=== PATIENT | male | born 1940 | race Caucasian/White ===

== ENCOUNTER → 2018-06-14 12:34 | Outpatient (CLI) | payer MEDICARE, SELFPAY ==
[2018-03-27 13:32] VITALS: BMI 39.6
--- NOTE | 2018-06-14 12:38 | AVDS_ITS ---
Reason For Study: Assessment of AV fistula graft LEFT [place] artery - 168.0 cm/s Volume flow - 162 cc/min Anastomosis - 211.0 cm/s Prox graft - 297.0 cm/s Volume flow - 230 cc/min Mid graft - 212.0 cm/s Volume flow - 256 cc/min Dist graft - 205.0 cm/s Volume - 10.5 cc/min Anastomosis - 208.0 cm/s. Interpretation Summary By report: patient with left upper extremity loop PTFE hemodialysis graft. Very poor flow volume throughout the left brachial artery and graft Mid graft dilatation to 0.88cm Stable velocities at the venous anastomosis with increased flow disturbance. Etiology to the low flow rates not identified. Ordering Physician: Teodoro Mckinley Referring Physician: Teodoro Mckinley Performed By: Ana Lilia Morrison RVT
== END ==
PROVIDERS: Family Provider Internal Medicine; PCP Internal Medicine; Referring Provider Internal Medicine; Visit Provider Internal Medicine
DX: Z01.818 Encounter for other preprocedural examination (principal); N18.6 End stage renal disease; Z99.2 Dependence on renal dialysis; I77.0 Arteriovenous fistula, acquired
CPT/HCPCS: 93990

== ENCOUNTER 2020-02-18 15:21 | Inpatient (IN) | payer MEDICARE, SELFPAY ==
[2020-01-14 14:26] VITALS: BMI 39.0
[2020-02-18 15:23] VITALS: BP 152/73; PULSE 60; RESP 18; TEMP 35.9; O2SAT 97; BMI 38.0
--- NOTE | 2020-02-18 15:33 | EKG12_ITS ---
Test Reason : SOB,CP Blood Pressure : / mmHG Vent. Rate : 065 BPM Atrial Rate : 065 BPM P-R Int : 238 ms QRS Dur : 116 ms QT Int : 404 ms P-R-T Axes : -09 027 035 degrees QTc Int : 420 ms Poor data quality, interpretation may be adversely affected AV dual-paced rhythm with prolonged AV conduction Abnormal ECG Confirmed by FLAVIO LOUISE, MARCI ([id number]), art editor KRISTEN MEDINA ([id number]) on 02/20/2020 9:33:16 AM Referred By: ED PHYS Confirmed By:MARCI MUNIZ MD
[2020-02-18] MEDS: Aspirin 81 MG TAB.CHEW 324 MG PO (17:09)
--- NOTE | 2020-02-18 17:15 | RAD_ITS ---
STUDY: X-RAY CHEST REASON FOR EXAM: Male, 79 years old. SOB WITH EXERTION, CP, COUGH AND CONGESTION TECHNIQUE: Single AP portable view of the chest. COMPARISON: 09/25/2016 FINDINGS: Interval placement of a right subclavian dual-lead pacemaker. No pneumothorax. The lungs are clear and expanded. There is no demonstrated pleural abnormality. There is moderate cardiac enlargement. Normal mediastinum and ilia. Normal visualized pulmonary arteries. Normal visualized aortic arch and descending thoracic aorta. Normal visualized thoracic spine. Normal visualized ribs, clavicles, and shoulders. There is no demonstrated abnormality of the visualized soft tissue structures of the upper abdomen. RAD/Chest 1 View (Portable) IMPRESSION: No active disease. Electronically Signed: Yo Sanchez MD at 17:30 EDT Tel , Service support ,
[2020-02-18 17:27] VITALS: O2SAT 97
[2020-02-18 17:33] LABS: Absolute Lymphocyte Count 0.97 X10^3/uL (0.83-4.51); Absolute Neutrophil Count 3.7 X10^3/uL (2.0-7.7); Basophil# 0.04 X10^3/uL; Basophil% 0.7 % (0-1); Eosinophil# 0.26 X10^3/uL; Eosinophils% 4.7 % (0-5); Hemoglobin 9.8 g/dL (13.0-16.5); Lymphocyte # 0.97 X10^3/ul (4.0); Lymphocyte % 17.5 % (19-41); Mean Corp Hgb Conc 30.6 g/dL (32-36); Mean Corpuscular Hgb 31.7 pg (27.0-32.0); Mean Corpuscular Volume 103.6 fL (80-94); Mean Platelet Vol. 10.1 fl (6.2-12.0); Monocyte# 0.58 X10^3/uL; Monocyte% 10.5 % (0-10); NRBC Flagged by Analyzer 0 % (0-5); Neutrophil # 3.66 X10^3/uL (2.7-7.7); Neutrophil % 66.2 % (47-70); Platelet Count 149 K/mm3 (150-450); RBC Distribution Width CV 16.7 % (11.6-14.6); RBC Distribution Width SD 63.4 fl (35.1-43.9); Red Blood Count 3.09 M/mm3 (4.6-6.2); White Blood Count 5.5 K/mm3 (4.4-11.0)
[2020-02-18 18:07] LABS: Anion Gap 6 (5-15); BUN 48 mg/dL (7-18); BUN/Creat Ratio 5.8 RATIO (10-20); Calcium,Total 9.2 mg/dL (8.5-10.1); Chloride 106 mmol/L (98-107); Creatinine, Serum 8.23 mg/dL (0.70-1.30); EST Glomerular Filtration Rate 7 mL/min (>60); Est Glom Filt Rate - Afr Amer 8 mL/min (>60); Estimated Creatinine Clearance 7.16 ml/min; Glucose 114 mg/dL (74-106); Potassium 4.9 mmol/L (3.5-5.1); Sodium Level 139 mmol/L (136-145)
--- NOTE | 2020-02-18 18:13 | ED.DCSUM_ITS ---
- ER Visit Summary Date of Service: 02/18/20 Chief Complaint: Chest pain and shortness of breath History of Present Illness: The patient is a [address] Mckinley and Dr. Tapia. He reports that he has chest pain shortness of breath that began 2 weeks ago. States that the chest pain is brought on by exertion. He uses walking down the garcia as an example of this. With this he gets severely short of breath. States it resolves with approximately 10 to 15 minutes of rest. He denies any chest pain at this time. He denies any radiation of the pain. He denies any diaphoresis, nausea, or vomiting with this. Of note the patient has a history of hypertension was on midodrine until 2 weeks ago. This was stopped because his blood pressure has been increasing. His reports his systolic blood pressure is been approximately 150 since. Physical Examination: Vitals: Stable. Afebrile. General: Well-nourished and well-developed. Head: Normocephalic atraumatic. Neck: Supple, no lymphadenopathy. No JVD. Nontender. Cardiovascular: Regular rate and rhythm. 2 out of 6 systolic murmur. Respiratory: No respiratory distress. Clear to auscultation bilaterally. Abdominal: Soft, nontender, nondistended, normal bowel sounds. No guarding, rebound, or peritoneal signs. Back: Nontender. Extremities: Nontender, 2+ edema of his lower extremities bilaterally. Skin: Normal color, no rash. Neurologic: Alert and oriented ?3. Cranial nerves II through XII are intact. Normal strength and sensation. Psych: Normal affect. Test Results: EKG is AV paced at [address] changes. Troponin 0 0.031. Chem-7 shows a BUN of 48, creatinine 8.23, glucose 114. CBC shows an H&H of 940 and 32.0, platelets 149, lymphocytes of 18, monocytes of 11. Emergency Department Course and Treatment: Patient was given aspirin here. He is resting comfortably and is pain-free. Treatment Plan: Patient was discussed with Dr. Tapia and Dr. Pearson. He will be admitted to the hospital for further evaluation and treatment. Dr. Tapia asked that I not anticoagulate him at this time. Disposition: Admitted in stable condition. Impression: 1. Unstable angina. 2. End-stage renal disease. 3. Anemia. 4. Thrombocytopenia. 5. ALLYSON score of 4. This note was generated with [employer] dictation software. It may contain incorrect words, spelling, and punctuation that were not noted in review of the chart prior to signing ED Disposition - Plan for ED Patient: Disposition: Acute Care Hospital [facility]
--- NOTE | 2020-02-18 18:35 | CON.PCM_ITS ---
Reason for Consult Date of Consultation: 02/18/20 Reason for Consultation: Chest discomfort History of Present Illness: The patient is a 79 year old M with no previously documented coronary artery disease but a history of end-stage renal disease on dialysis. He also is status post permanent pacemaker implantation. He presented to the emergency room today complaining of chest discomfort described as heaviness in his chest with exertion. It tends to go away with rest. He apparently a few days ago had a similar discomfort presented to [facility] and was evaluated and discharged. He did not have any stress test performed. He has not had a stress test in a long time. He denies any shortness of breath he has been participating in his dialysis. He has had no dizziness or diaphoresis no near syncope or syncope. He has however had some fluctuations in his blood pressure previously. In the emergency room he was noted to have abnormal EKG with mildly abnormal cardiac enzymes cardiology was called for further evaluation and management. [] Past Medical History Allergies/Adverse Reactions: Allergies Penicillins [PCN] Allergy (Verified 02/18/20 15:26) Unknown STATES FATHER WAS NEVER HAS BEEN GIVEN MEDICATION atorvastatin calcium [From Lipitor] Adverse Reaction (Verified 02/18/20 15:26) Other METAL Allergy (Uncoded 02/18/20 15:26) Rash Home Medications: Ambulatory Orders Medication Instructions Recorded Insulin Lispro [Humalog] 6 - 8 unit SQ TID PRN 07/23/15 Pravastatin [Pravachol] 80 mg PO DAILY 07/23/15 Tamsulosin HCl [Flomax] 0.4 mg PO QHS 07/23/15 Aspirin E.C. [Ecotrin] 81 mg PO DAILY@0800 09/25/16 B complex with C 20-folic acid 1 1 cap PO DAILY 06/16/18 mg capsule insulin detemir U-100 100 unit/mL 14 unit SC QHS ml 06/16/18 (3 mL) subcutaneous pen clopidogrel 75 mg tablet 75 mg PO DAILY 09/29/18 Acetaminophen [Tylenol Extra 500 mg PO DAILY PRN PRN 02/18/20 Strength] Calcium Acetate 1,334 mg PO BREAKFAST 02/18/20 Calcium Acetate 667 mg PO BIDCM 02/18/20 Latanoprost/Pf [Latanoprost 0.005% 1 drp EACH EYE QHS 02/18/20 Eye Drop] Levothyroxine Sodium [Synthroid] 175 mcg PO DAILY 10/05/20 Past Medical History (Chronic Problems): Chronic Problems (Last Reviewed 01/14/20 @ 14:48 by Ilda JERRY, PA) Presence of permanent cardiac pacemaker (Chronic 09/27/16) Dual Chamber Pacemaker Implant: 09/27/2016 Essential hypertension (Chronic) Atrioventricular block, second degree (Chronic) Bradycardia, unspecified (Chronic) 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) HLD (hyperlipidemia) (Chronic) Chronic renal failure (Chronic) Surgical History: - - *Family History Maternal Family History: Family History (Last Reviewed 01/14/20 @ 14:48 by Ilda JERRY, PA) Father valve replacement Cancer Uncle CAD (coronary artery disease) History Items: - - kidney disease, small shriveled kidneys Paternal Family History: Family History (Last Reviewed 01/14/20 @ 14:48 by Ilda JERRY, PA) Father valve replacement Cancer Uncle CAD (coronary artery disease) History Items: - - diabetes Smoking Status: Never smoker Review of Systems - Review of Systems General: Denies: Fever, Night Sweats, Fatigue HEENT: Denies: Vision Change Cardiovascular: Reports: Chest Discomfort, Chest Discomfort with Exertion, Chest Pressure. Denies: Shortness of Breath, Orthopnea, PND, Peripheral Edema, Palpitations, Lightheadedness, Dizziness, Near Syncope, Syncope Respiratory: Denies: Cough, Sputum Production, Hemoptysis Gastrointestinal: Denies: Hematemesis, Hematochezia, Melena Genitourinary: Denies: Dysuria, Hematuria Skin: Denies: Rash Neurological: Denies: Dizziness Psychiatric: Denies: Anxiety Endocrine: Denies: Unexplained Weight Loss Subjectve: Pleasant gentleman in no distress Objective: Vital Signs Temp Pulse Resp BP Pulse Ox 96.7 F L 60 18 152/73 H 97 02/18/20 15:23 02/18/20 15:23 02/18/20 15:23 02/18/20 15:23 02/18/20 15:23 Oxygen Delivery Method Room Air Weight: 250 lb Body Mass Index (BMI) 38.0 Finger Stick Blood Glucose 124 General: Awake, Alert, Oriented x 3 HEENT: PERRL, EOMI, Sclera Non Icteric Neck: Supple, Good ROM, No Lymph Node Enlargement Lungs: Clear to auscultation Cardiovascular: Regular Rhythm, Normal S1, Normal S2, No Murmurs, No Rubs, No Gallops Vascular: No Carotid Bruits, Normal Femoral Pulses, Normal Radial Pulses, Normal Dorsalis Pedal Pulse, Normal Posterior Tibial Pulses Abdomen: Bowel Sounds Present, Soft, Non Tender, No HSM, No Organomegaly Extremities: No Cyanosis, No Clubbing, Trace RLE Edema Musculoskeletal: No Erythema Skin: No Rashes Lymphatic: No Lymph Node Enlargement Neurological: No Focal Motor or Sensory Deficit 02/18/20 17:08: WBC 5.5, RBC 3.09 L, Hgb 9.8 L, Hct 32.0 L, MCV 103.6 H, MCH 31.7, MCHC 30.6 L, Plt Count 149 L, MPV 10.1, Immature Gran % (Auto) 0.400, Neut % (Auto) 66.2, Lymph % (Auto) 17.5 L, [place] % (Auto) 10.5 H, Eos % (Auto) 4.7, Baso % (Auto) 0.7, Absolute Neuts (auto) 3.7, Nucleated RBC % 0 02/18/20 17:08: Sodium 139, Potassium 4.9, Chloride 106, Carbon Dioxide 27.0, Anion Gap 6, BUN 48 H, Creatinine 8.23 H*, Est GFR (MDRD) Af Amer 8 L, Est GFR (MDRD) Non-Af 7 L, BUN/Creatinine Ratio 5.8 L, Glucose 114 H, Calcium 9.2, Troponin I 0.031 Rhythm: EKG: Normal sinus rhythm with no acute changes ECHO: Stress Test: Cardiac Cath: PCI: CT Surgery: Holter monitor: EPS: PPM: CXR: Chest CT Scan: Assessment/Plan 1. Chest pain. * Patient describes chest discomfort which is suggestive of recent onset angina. He has not had any chest pain at rest however. He has mildly abnormal cardiac enzymes. He does have renal dysfunction and his blood pressure is mildly elevated. This could potentially be an etiology. However in light of the fact that it appears to be fairly classic I would recommend that we perform a left heart catheterization. The risk benefits alternatives have been discussed with him he understands and agrees to proceed. I would recommend that he have dialysis after the cardiac catheterization. This has been discussed with the hospitalist and the nurse practitioner and all are in agreement. * 2. Status post permanent pacemaker implantation * He does have a dual-chamber pacemaker placed. He appears to be doing well with regard to the above. It has been recently interrogated and no significant abnormalities noted. * 3. Hypertension * He has had fluctuations in his blood pressure. We will continue to follow the above and monitor him with respect to the medications and appropriate adjustments will be made. * * Thank you for allowing me to participate in the care of your patient. Please don't hesitate to call if any issues arise.
--- NOTE | 2020-02-18 18:36 | PCM.HP.STD ---
History of Present Illness Date of Admission: 02/18/20 Chief Complaint: chest pain The patient is a 79 year old M with pmhx of ESRD, pacemaker for hx of AV block, Afib, HTN, chronic anemia, hypothyroidism, HLD, DMt2 who presents to the ER with chest pain. The patient has had intermittent chest pain for about 3 weeks. He describes it as a dull midsternal pain with no radiation, with associated SOB that is better at rest. He went to the [place] ER 2 weeks ago, had a CT of the chest, was told it was negative, and was discharged home. He continued to have intermittent pain for 2 more weeks. The patient met with cardiology in the ER and was agreeable to a heart cath in the AM. He has had one prior heart cath in his life but it was many years ago and was negative at that time. He is currently chest pain free in the ER. 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) HLD (hyperlipidemia) (Chronic) Chronic renal failure (Chronic) Medical History: Medical History (Last Reviewed 01/14/20 @ 14:48 by Ilda JERRY, PA) Essential hypertension (Chronic) I10 Problem with dialysis access (Acute) T82.898A Atrioventricular block, second degree (Chronic) I44.1 Bradycardia, unspecified (Chronic) R00.1 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) E11.59 HLD (hyperlipidemia) (Chronic) E78.5 Chronic renal failure (Chronic) N18.9 Thyroid disease E07.9 Anemia D64.9 Atrial fibrillation I48.91 History of renal calculi Z87.442 Hypoglycemia E16.2 First degree atrioventricular block (Inactive) I44.0 Hyperkalemia (Inactive) E87.5 Allergies Penicillins [PCN] Allergy (Verified 02/18/20 15:26) Unknown STATES FATHER WAS NEVER HAS BEEN GIVEN MEDICATION atorvastatin calcium [From Lipitor] Adverse Reaction (Verified 02/18/20 15:26) Other METAL Allergy (Uncoded 02/18/20 15:26) Rash Home Medications: Ambulatory Orders Medication Instructions Recorded Insulin Lispro [Humalog] 6 - 8 unit SQ TID PRN 07/23/15 Pravastatin [Pravachol] 80 mg PO DAILY 07/23/15 Tamsulosin HCl [Flomax] 0.4 mg PO QHS 07/23/15 Aspirin E.C. [Ecotrin] 81 mg PO DAILY@0800 09/25/16 B complex with C 20-folic acid 1 1 cap PO DAILY 06/16/18 mg capsule insulin detemir U-100 100 unit/mL 14 unit SC QHS ml 06/16/18 (3 mL) subcutaneous pen clopidogrel 75 mg tablet 75 mg PO DAILY 09/29/18 Acetaminophen [Tylenol Extra 500 mg PO DAILY PRN PRN 02/18/20 Strength] Calcium Acetate 1,334 mg PO BREAKFAST 02/18/20 Calcium Acetate 667 mg PO BIDCM 02/18/20 Latanoprost/Pf [Latanoprost 0.005% 1 drp EACH EYE QHS 02/18/20 Eye Drop] Levothyroxine Sodium [Synthroid] 175 mcg PO DAILY 02/18/20 Surgical History: Surgical History (Last Reviewed 01/14/20 @ 14:48 by Ilda JERRY, PA) Presence of permanent cardiac pacemaker (Chronic) Onset Date: 09/27/16 Z95.0 Dual Chamber Pacemaker Implant: 09/27/2016 History of arthroplasty of right shoulder Z98.890 History of biopsy Z98.890 renal 05/14/2015 History of inguinal hernia repair Z98.890, Z87.19 History of tonsillectomy Z90.89 hx fistula placement in left arm Surgical History: pacemaker implantation Lives: Alone Smoking Status: Never smoker Tobacco Use: Non-smoker Alcohol: None Drugs: None - *Family History Maternal Family History: Family History (Last Reviewed 02/18/20 @ 18:50 by Osmel JERRY, PA) Father valve replacement Cancer Uncle CAD (coronary artery disease) History Items: - - kidney disease, small shriveled kidneys Paternal Family History: Family History (Last Reviewed 02/18/20 @ 18:50 by Osmel JERRY, PA) Father valve replacement Cancer Uncle CAD (coronary artery disease) History Items: - - diabetes Review of Systems Constitutional: Denies: Chills, Fever, Weight Change HEENT: Denies: Head Aches, Sinus Congestion, Sinus Drainage Cardiovascular: Reports: Chest Pain. Denies: Edema, Palpitations Respiratory: Reports: Shortness of Breath. Denies: Cough, Shortness of breath at rest, Sputum production Gastrointestinal: Denies: Abdominal Pain, Diarrhea, Nausea, Vomiting Genitourinary: Denies: Dysuria Musculoskeletal: Denies: Joint Pain, Joint Tenderness Skin: Denies: Rash, Wounds Neurological: Denies: Numbness, Tingling, Focal weakness Psychiatric: Denies: Anxiety, Depression, Homicidal Ideations, Suicidal Ideations Hematologic/ Lymphatic: Denies: Easy Bruising, Easy Bleeding VTE Information - Inpt Only VTE Present on Admission: No VTE Mechan Device Prophylaxis: None VTE Pharm Prophylaxis ordered?: Yes - Physical Exam Vitals/I&O's: Vital Signs Temp Pulse Resp BP Pulse Ox 96.7 F L 60 18 152/73 H 97 02/18/20 15:23 02/18/20 15:23 02/18/20 15:23 02/18/20 15:23 02/18/20 15:23 Oxygen Delivery Method Room Air Weight: 250 lb Body Mass Index (BMI) 38.0 Finger Stick Blood Glucose 124 General: Alert, Oriented x3, Cooperative HEENT: Atraumatic, PERRLA, EOMI, Normocephalic Neck: Supple, No JVD, Negative Carotid Bruits Lungs: Clear to auscultation, Normal air movement Cardiovascular: Regular rate, No murmurs Abdomen: Bowel Sounds Present, Soft, Non Tender, Obese Extremities: No edema, Capillary Refill Less than 3 Seconds Skin: No rashes, No breakdown Musculoskeletal: No Tenderness to Palpation of Joints or Extremities Neurological: Cranial nerves II-XII grossly intact Psych/Mental Status: Normal Affect, Appropriate, Alert and oriented to time, place, person, mood and affect Laboratory Results 02/18/20 17:08: WBC 5.5, RBC 3.09 L, Hgb 9.8 L, Hct 32.0 L, MCV 103.6 H, MCH 31.7, MCHC 30.6 L, RDW Std Deviation 63.4 H, RDW Coeff of Renan 16.7 H, Plt Count 149 L, MPV 10.1, Immature Gran % (Auto) 0.400, Neut % (Auto) 66.2, Lymph % (Auto) 17.5 L, [place] % (Auto) 10.5 H, Eos % (Auto) 4.7, Baso % (Auto) 0.7, Absolute Neuts (auto) 3.7, Absolute Lymphs (auto) 0.97, Nucleated RBC % 0 02/18/20 17:08: Sodium 139, Potassium 4.9, Chloride 106, Carbon Dioxide 27.0, Anion Gap 6, BUN 48 H, Creatinine 8.23 H*, Estim Creat Clear Calc 7.16, Est GFR (MDRD) Af Amer 8 L, Est GFR (MDRD) Non-Af 7 L, BUN/Creatinine Ratio 5.8 L, Glucose 114 H, Calcium 9.2, Troponin I 0.031 Assessment/Plan All Active Problems (Last Reviewed 01/14/20 @ 14:48 by Ilda JERRY, PA) Problem with dialysis access (Acute) Nephrolithiasis (Resolved) 1. Chest pain - cardiology consulted. Pt to go for heart catheterization in the AM. EKG SR with PACs, Trop negative, CXR negative. Cycle enzymes, repeat EKG in AM. Pt is already on plavix, unclear reasons, pt is unsure. continue aspirin, statin. Risk factors include HTN, HLD, T2 DM, obesity, family hx of heart dz. Platelets are borderline low. 2. ? hx pAfib - listed in EMR as in the patients hx. SR currently. Rate stable. Not on rate limiting medications. Not anticoagulated. 3. Hx AV block with pacemaker in place 4. ESRD - due for dialysis tomorrow. Consult [facility] 5. DMt2 with obesity - continue levemir, TID humalog, sliding scale insulin. Consult scoring machine operator 6. HTN - not on home antihypertensives 7. HLD - statin 8. Anemia of chronic dz (esrd) - trend This patient was seen by Osmel Torres PA-C under the supervision of Dr. Pearson.
[2020-02-18 19:15] VITALS: BMI 37.6
[2020-02-18 19:19] VITALS: BP 195/73; PULSE 57; RESP 20; TEMP 36.5; O2SAT 95
[2020-02-18 19:24] VITALS: BMI 37.6
[2020-02-18 19:44] VITALS: PULSE 70
--- NOTE | 2020-02-18 20:06 | EKG12_ITS ---
Test Reason : AM EKG Blood Pressure : / mmHG Vent. Rate : 073 BPM Atrial Rate : 062 BPM P-R Int : 000 ms QRS Dur : 114 ms QT Int : 412 ms P-R-T Axes : 000 033 252 degrees QTc Int : 453 ms AV dual-paced rhythm with frequent Premature ventricular complexes Abnormal ECG Confirmed by KALEB LOUISE, DAVID ([id number]), proposal editor KRISTEN MEDINA ([id number]) on 02/20/2020 10:23:05 AM Referred By: PHIL Confirmed By:DAVID MANUEL MD
[2020-02-18] MEDS: Heparin Injection (Vial) 5,000 UNIT/ML VIAL 5000 UNIT SC (21:09)
[2020-02-18] MEDS: Tamsulosin HCl 0.4 MG Capsule PO (21:09)
[2020-02-18 21:16] LABS: Bedside Glucose 162 mg/dL (70-110)
[2020-02-18] MEDS: Insulin Lispro 100 UNIT/ML INSULN.PEN SC (21:25)
[2020-02-18] MEDS: Pravastatin 80 MG Tablet PO (21:27)
[2020-02-18 23:09] VITALS: PULSE 74
[2020-02-19] VITALS (18 sets, daily range): BP systolic 114–176; BP diastolic 58–84; PULSE 52–74; RESP 14–18; TEMP 36.1–36.9; O2SAT 92–97
[2020-02-19] MEDS: Clopidogrel Bisulfate 75 MG Tablet PO (05:32)
[2020-02-19] MEDS: Levothyroxine 175 MCG Tablet PO (05:32)
[2020-02-19] MEDS: Aspirin E.C. 81 MG Tablet PO (05:32)
--- NOTE | 2020-02-19 05:55 | EKG12_ITS ---
Test Reason : CP ADMISSION Blood Pressure : / mmHG Vent. Rate : 061 BPM Atrial Rate : 061 BPM P-R Int : 238 ms QRS Dur : 114 ms QT Int : 412 ms P-R-T Axes : 008 029 032 degrees QTc Int : 414 ms AV dual-paced rhythm with prolonged AV conduction Abnormal ECG Confirmed by KALEB LOUISE, DAVID ([id number]), scientific editor KRISTEN MEDINA ([id number]) on 02/20/2020 10:23:17 AM Referred By: PHIL Confirmed By:DAVID MANUEL MD
[2020-02-19 06:02] LABS: Mucous, Urine 0 SEEN /hpf (<or=2+); Red Blood Cells-Urine 0 SEEN /hpf (0-5); Squamous Epithelial Cells - UA 0 SEEN /hpf (0-5)
[2020-02-19] MEDS: 0.9% Saline Lock 10 ML Syringe IV (06:07)
[2020-02-19 06:08] LABS: Color, Urine Yellow (Yellow); Glucose, Dipstick Normal (Normal); Ketone-Dipstick 5 mg/dl (Negative); Leukocyte Esterase-Dipstick 500 /ul (Negative); Nitrite-Dipstick Negative (Negative); Occult Blood-Urine 10 /ul (Negative); Protein-Dipstick 100 mg/dl (Negative); Urine Clarity Clear (Clear); Urine Urobilinogen 1 mg/dl (Normal)
[2020-02-19 06:11] LABS: Urine Bilirubin Dipstick 1 mg/dL (Negative)
[2020-02-19 06:23] LABS: Amorphous Sediment RARE; Bacteria RARE /hpf (None Seen)
[2020-02-19 06:25] LABS: White Blood Cells 25-50 SEEN /hpf (0-5)
[2020-02-19 06:40] LABS: Bedside Glucose 122 mg/dL (70-110)
--- NOTE | 2020-02-19 07:17 | NURSING ---
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
--- NOTE | 2020-02-19 08:27 | ECHOL_ITS ---
Reason For Study: CAD Procedure This was a limited 2D transthoracic echocardiogram. The study was technically limited. Performed STAT in Injection Maintenance Technician. Left Ventricle Normal LV size. Moderate concentric left ventricular hypertrophy. Left ventricular systolic function is normal. The estimated ejection fraction is 60 %. No regional wall motion abnormalities noted. Mitral Valve There is moderate mitral annular calcification. Tricuspid Valve Normal tricuspid valve. Aortic Valve Normal aortic valve. Great Vessels Normal aortic root. Pericardium/Pleural No pericardial effusion. MMode/2D Measurements & Calculations LVIDd: 5.1 cm IVSd: 0.76 cm LVIDs: 3.8 cm LVPWd: 1.2 cm FS: 26.9 % Interpretation Summary Normal LV size. Left ventricular systolic function is normal. The estimated ejection fraction is 60 %. Moderate concentric left ventricular hypertrophy. Ordering Physician: Jorge Tapia Referring Physician: Teodoro Mckinley M.D. Performed By: Francesca Kelley, JENNIFER, RVT
--- NOTE | 2020-02-19 08:41 | CL.D_ITS ---
Patient Name: MERLIN LANDERS Study Date: 02/19/2020 Performing: Jorge Tapia MD Ht: 68.11 inches 173 cm : 1940 Wt: 246.92 lbs 112 kg Age: 79 Gender: male BSA: 2.24 PROCEDURE(S) PERFORMED XV25-YXG/COR CLINICAL PROFILE AND INDICATIONS Indications: Worsening Angina Heart Failure: None Stress/Imaging Stress/Image Study Performed: No CAD Presentations: Unstable angina. CONCLUSIONS Severe coronary artery disease with calcification especially involving the circumflex arterial system involving the mid circumflex as well as the first obtuse marginal branch. Extensive snob-sd-yhqid c ollaterals noted filling almost the entire right coronary artery system. Moderate LAD disease noted. RECOMMENDATIONS Will consider high risk PCI versus coronary artery bypass surgery DESCRIPTION OF PROCEDURE The patient arrived to the procedure lab. The risks and benefits of the procedure as well as a full d escription of our services here and current unavailability of surgical backup were fully explained to the patient and/or their significant other prior to the catheterization. The Timeout was completed, verifying the correct patient and procedure. The patient's procedural site was prepped and draped in the usual fashion. Local anesthetic was given subcutaneously to right radial region with Lidocaine 2% . Using a modified Seldinger technique, arterial access was obtained via the right radial artery, a 6 Fr sheath was inserted. Left Coronary Artery selective angiography was performed in multiple views u sing a 5 Fr. 4.0 [place] catheter. CORONARY ANGIOGRAPHY DOMINANCE: Right Dominant LEFT HEART ASSESSMENT Left Ventricular Ejection Fraction: by Echo 55 % Normal LV wall motion LEFT MAIN: Mild calcification, Mild luminal irregularities LEFT ANTERIOR DESCENDING ARTERY: PROX LAD: Moderate calcification, Moderate luminal irregularities up to 50% MID LAD: Mild luminal irregularities less than 30% DISTAL LAD: Mild luminal irregularities CIRCUMFLEX ARTERY: PROX CIRC: 90 % Stenosis OM 1: Proximal - 90 % Stenosis RIGHT CORONARY ARTERY: OSTIAL RCA: is occluded COLLATERAL FLOW: Collateral flow from Left to Right COMPLICATIONS PROCEDURE MEDICATIONS Versed 1 mg IV Fentanyl 50 mcg IV Oxygen: 2 L/min via nasal cannula Heparin diluted in 23cc Heparinized saline. Patient given 10cc IA of this solution. 02/19/2020 08:04: 10 Verapamil 2.5mg, Ntg 100mcgs, 2000 units of Heparin diluted in 23cc Heparinized saline. Patient give n 10cc IA of this solution. 02/19/2020 08:04:10 SUMMARY OF HEMODYNAMIC DATA Time AIR REST ECG 07:54:17 AO 151/76 (107) SA 08:06:35 Signed By Jorge Tapia MD On 02/19/2020 08:40:51 Jorge Tapia MD
--- NOTE | 2020-02-19 08:47 | PN.CARD_ITS ---
Subjectve: Patient seen and evaluated. Appears to be doing well. Underwent cardiac catheterization today. Objective: Vital Signs Temp Pulse Resp BP Pulse Ox 97.8 F 68 17 145/61 H 97 02/19/20 06:15 02/19/20 08:00 02/19/20 06:15 02/19/20 06:15 02/19/20 06:15 Oxygen Delivery Method Room Air Weight: 247 lb 9.266 oz Body Mass Index (BMI) 37.6 Finger Stick Blood Glucose 124 Intake and Output for Last 24 Hours 02/17/20 02/18/20 02/19/20 23:59 23:59 23:59 Intake Total 320 / 320 60 / 60 Balance 320 / 320 60 / 60 General: Awake, Alert, Oriented x 3 HEENT: PERRL, EOMI, Sclera Non Icteric Neck: Supple, Good ROM, No Lymph Node Enlargement Lungs: Clear to auscultation Cardiovascular: Regular Rhythm, Normal S1, Normal S2, No Murmurs, No Rubs, No Gallops Vascular: No Carotid Bruits, Normal Femoral Pulses, Normal Radial Pulses, Normal Dorsalis Pedal Pulse, Normal Posterior Tibial Pulses Abdomen: Bowel Sounds Present, Soft, Non Tender, No HSM, No Organomegaly Extremities: No Cyanosis, No Clubbing, No edema Musculoskeletal: No Erythema Skin: No Rashes Neurological: No Focal Motor or Sensory Deficit 02/18/20 17:08: WBC 5.5, RBC 3.09 L, Hgb 9.8 L, Hct 32.0 L, MCV 103.6 H, MCH 31.7, MCHC 30.6 L, Plt Count 149 L, MPV 10.1, Immature Gran % (Auto) 0.400, Neut % (Auto) 66.2, Lymph % (Auto) 17.5 L, [place] % (Auto) 10.5 H, Eos % (Auto) 4.7, Baso % (Auto) 0.7, Absolute Neuts (auto) 3.7, Nucleated RBC % 0 02/18/20 17:08: Sodium 139, Potassium 4.9, Chloride 106, Carbon Dioxide 27.0, Anion Gap 6, BUN 48 H, Creatinine 8.23 H*, Est GFR (MDRD) Af Amer 8 L, Est GFR (MDRD) Non-Af 7 L, BUN/Creatinine Ratio 5.8 L, Glucose 114 H, Calcium 9.2, Troponin I 0.031 02/18/20 20:32: Troponin I 0.029 02/18/20 22:43: Troponin I 0.034 02/19/20 05:40: Urine Color Yellow, Urine Clarity Clear, Urine pH 5.0, Ur Specific [place] 1.010, Urine Protein 100 H, Urine Glucose (UA) Normal, Urine Ketones 5 H, Urine Occult Blood 10 H, Urine Nitrite Negative, Urine Bilirubin 1 H, Urine Urobilinogen 1 H, Ur Leukocyte Esterase 500 H, Urine RBC 0 SEEN, Urine WBC 25-50 SEEN Rhythm: EKG: ECHO: Stress Test: Cardiac Cath: PCI: CT Surgery: Holter monitor: EPS: PPM: CXR: Chest CT Scan: Medical Necessity - Tobacco Use Smoking Status: Never smoker Tobacco Use: Non-smoker Assessment/Plan 1. Chest pain. * Patient describes chest discomfort which is suggestive of recent onset angina. * Patient underwent cardiac catheterization today which demonstrated the following: Normal left main coronary artery. Left anterior descending artery with moderate disease. First diagonal vessel with high-grade ostial stenosis: Left circumflex artery nondominant with severe disease involving the mid segment as well as the first obtuse marginal branch and a calcified lesion. Totally occluded right coronary artery. Left to right collaterals. Preserved left ventricular systolic function. Based on the above angiographic findings the patient should be considered for high risk PCI or coronary artery bypass surgery. Would recommend transferring to a tertiary care facility after the patient has undergone dialysis today. The above was discussed with the patient as well as the bilingual administrative assistant. 2. Status post permanent pacemaker implantation * He does have a dual-chamber pacemaker placed. He appears to be doing well with regard to the above. It has been recently interrogated and no significant abnormalities noted. * 3. Hypertension * He has had fluctuations in his blood pressure. We will continue to follow the above and monitor him with respect to the medications and appropriate adjustments will be made. * * Thank you for allowing me to participate in the care of your patient. Please don't hesitate to call if any issues arise.
--- NOTE | 2020-02-19 08:52 | CASEMGMT ---
Addendum entered by Yadira Nation 02/19/20 09:43: [facility] is also in-network tertiary facility. Linnette VALENCIA CM Original Note: According to the [facility] website, the following are in-network tertiary facilities: [facility], [place], [facility], [facility], [facility], [facility], [facility], and . Linnette VALENCIA CM
[2020-02-19] MEDS: Calcium Acetate 667 MG Capsule 1334 MG PO (10:07)
[2020-02-19] MEDS: Nystatin Powder 15gm Bottle 1 APPLIC TOPICAL (10:10)
[2020-02-19] MEDS: Lidocaine/Prilocaine HCl 5 GM Tube 1 GM TOPICAL (10:57)
--- NOTE | 2020-02-19 11:27 | CON.PCM_ITS ---
Problem List (1) ESRD (end stage renal disease) on dialysis Status: Acute Consultation - Renal 02/19/20 PCP/ Referring MD: Requesting physician: [] Primary care physician: Dr. Teodoro Mckinley MD Reason for Consultation:: ESRD - History of Present Illness History of Present Illness: The patient is a 79 year old M admitted to hospital with complaints of chest pain. renal consulted for ESRD. ESRD on HD TTS schedule. last HD was tuesday. admitted with chest pain for 3 weeks now. 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 possible transfer to tertiary [facility] for CABG. currently denies any complaints. access is left arm AVF - Allergies Allergies: Allergies Penicillins [PCN] Allergy (Verified 02/18/20 19:17) Unknown STATES FATHER WAS, NEVER HAS BEEN GIVEN MEDICATION atorvastatin calcium [From Lipitor] Adverse Reaction (Verified 02/18/20 19:17) muscular aches METAL Allergy (Uncoded 02/18/20 15:26) Rash - Current Medications Current Medications: Current Medications Acetaminophen (Tylenol) 650 mg PO Q6H PRN PRN PRN Reason: Pain Score 1-10/Temp > 100.7 F Aspirin (Ecotrin) 81 mg PO DAILY@0800 [facility] Last Admin: 02/19/20 05:32 Dose: 81 mg Documented by: Calcium Acetate (Phoslo Gel Cap) 667 mg PO 1200,1700 [facility] Calcium Acetate (Phoslo Gel Cap) 1,334 mg PO BREAKFAST [facility] Last Admin: 02/19/20 10:07 Dose: 1,334 mg Documented by: Clopidogrel Bisulfate (Plavix) 75 mg PO DAILY [facility] Last Admin: 02/19/20 05:32 Dose: 75 mg Documented by: Heparin Sodium (Porcine) (Heparin Na) 5,000 unit SC Q12 [facility] Last Admin: 02/19/20 10:09 Dose: Not Given Documented by: Insulin Glargine (Lantus (Bkc)) 14 units SC QHS [facility] Last Admin: 02/18/20 21:11 Dose: 14 u Documented by: Insulin Human Lispro (Humalog Kwikpen (Bkc)) 0 unit SC ACHS [facility]; Protocol Last Admin: 02/18/20 22:16 Dose: Not Given Documented by: Levothyroxine Sodium (Synthroid) 175 mcg PO DAILY@0600 [facility] Last Admin: 02/19/20 05:32 Dose: 175 mcg Documented by: Lidocaine/Prilocaine (Emla Cream W/Tegaderm) 1 gm TOPICAL DAILY PRN PRN; Protocol PRN Reason: pre-dialysis Last Admin: 02/19/20 10:57 Dose: 1 applicatio Documented by: Morphine Sulfate () 2 mg IV Q3H PRN PRN PRN Reason: Pain Score 6-10/10 Nystatin (Mycostatin Powder) 1 applic TOPICAL BID KADIE; Protocol Last Admin: 02/19/20 10:10 Dose: 1 applicatio Documented by: Ondansetron HCl (Zofran) 4 mg IV Q8H PRN PRN PRN Reason: NAUSEA/VOMITING Pravastatin Sodium (Pravachol) 80 mg PO QHS [facility] Last Admin: 02/18/20 21:27 Dose: 80 mg Documented by: Sodium Chloride () 10 - 40 ml IV UD PRN PRN Reason: SALINE FLUSH Last Admin: 02/19/20 06:07 Dose: 10 ml Documented by: Tamsulosin HCl (Flomax) 0.4 mg PO QHS [facility] Last Admin: 02/18/20 21:09 Dose: 0.4 mg Documented by: - Past Medical History Past Medical History (Chronic Problems): Chronic Problems (Last Reviewed 01/14/20 @ 14:48 by Ilda JERRY, PA) Presence of permanent cardiac pacemaker (Chronic 09/27/16) Dual Chamber Pacemaker Implant: 09/27/2016 Essential hypertension (Chronic) Atrioventricular block, second degree (Chronic) Bradycardia, unspecified (Chronic) 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) HLD (hyperlipidemia) (Chronic) Chronic renal failure (Chronic) - Past Surgical History Surgical History: pacemaker implantation - Social History Smoking Status: Never smoker Alcohol: None Drugs: None - Family History Maternal Family History: Family History (Last Reviewed 02/18/20 @ 18:50 by Osmel JERRY, PA) Father valve replacement Cancer Uncle CAD (coronary artery disease) History Items: - - kidney disease, small shriveled kidneys Paternal Family History: Family History (Last Reviewed 02/18/20 @ 18:50 by Osmel JERRY, PA) Father valve replacement Cancer Uncle CAD (coronary artery disease) History Items: - - diabetes Review of Systems Constitutional: Denies: Chills, Fever, Weight Change HEENT: Denies: Head Aches, Sinus Congestion, Sinus Drainage Cardiovascular: Denies: Chest Pain, Palpitations Respiratory: Denies: Cough, Shortness of breath at rest, Sputum production Gastrointestinal: Denies: Abdominal Pain, Nausea, Vomiting Genitourinary: Denies: Dysuria Musculoskeletal: Denies: Joint Pain, Joint Tenderness Skin: Denies: Rash, Wounds Neurological: Denies: Numbness, Tingling, Focal weakness Psychiatric: Denies: Anxiety, Depression, Homicidal Ideations, Suicidal Ideations Hematologic/ Lymphatic: Denies: Easy Bruising, Easy Bleeding Patient Problems: Active and Suspected Problems (Last Reviewed 01/14/20 @ 14:48 by Ilda JERRY, PA) ESRD (end stage renal disease) on dialysis (Acute) - Physical Exam Vitals/I&O's: Vital Signs Temp Pulse Resp BP Pulse Ox 97.5 F L 58 L 18 163/69 H 93 02/19/20 10:30 02/19/20 11:00 02/19/20 11:00 02/19/20 11:00 02/19/20 11:00 Oxygen Flow Rate (L/min) 2 Oxygen Delivery Method Room Air Weight: 112.3 kg Body Mass Index (BMI) 37.6 Finger Stick Blood Glucose 124 Intake and Output for Last 24 Hours 02/17/20 02/18/20 02/19/20 23:59 23:59 23:59 Intake Total 320 / 320 60 / 60 Balance 320 / 320 60 / 60 General: Alert, Oriented x3, Cooperative HEENT: Atraumatic, PERRLA, EOMI, Normocephalic Neck: Supple, No JVD, Negative Carotid Bruits Lungs: Clear to auscultation, Normal air movement Cardiovascular: Regular rate, No murmurs Abdomen: Bowel Sounds Present, Soft, Non Tender Extremities: No edema, Capillary Refill Less than 3 Seconds Skin: No rashes, No breakdown Musculoskeletal: No Tenderness to Palpation of Joints or Extremities Neurological: Cranial nerves II-XII grossly intact Psych/Mental Status: Normal Affect, Appropriate Laboratory Results 02/18/20 17:08: WBC 5.5, RBC 3.09 L, Hgb 9.8 L, Hct 32.0 L, MCV 103.6 H, MCH 31.7, MCHC 30.6 L, RDW Std Deviation 63.4 H, RDW Coeff of Renan 16.7 H, Plt Count 149 L, MPV 10.1, Immature Gran % (Auto) 0.400, Neut % (Auto) 66.2, Lymph % (Auto) 17.5 L, [place] % (Auto) 10.5 H, Eos % (Auto) 4.7, Baso % (Auto) 0.7, Absolute Neuts (auto) 3.7, Absolute Lymphs (auto) 0.97, Nucleated RBC % 0 02/18/20 17:08: Sodium 139, Potassium 4.9, Chloride 106, Carbon Dioxide 27.0, Anion Gap 6, BUN 48 H, Creatinine 8.23 H*, Estim Creat Clear Calc 7.16, Est GFR (MDRD) Af Amer 8 L, Est GFR (MDRD) Non-Af 7 L, BUN/Creatinine Ratio 5.8 L, Glucose 114 H, Calcium 9.2, Troponin I 0.031 02/18/20 20:32: Troponin I 0.029 02/18/20 21:08: POC Glucose 162 H 02/18/20 22:43: Troponin I 0.034 02/19/20 05:40: Urine Color Yellow, Urine Clarity Clear, Urine pH 5.0, Ur Specific [place] 1.010, Urine Protein 100 H, Urine Glucose (UA) Normal, Urine Ketones 5 H, Urine Occult Blood 10 H, Urine Nitrite Negative, Urine Bilirubin 1 H, Urine Urobilinogen 1 H, Ur Leukocyte Esterase 500 H, Urine RBC 0 SEEN, Urine WBC 25-50 SEEN, Ur Squamous Epith Cells 0 SEEN, Amorphous Sediment RARE, Urine Bacteria RARE, Urine Mucus 0 SEEN 02/19/20 06:35: POC Glucose 122 H Current Medications Acetaminophen (Tylenol) 650 mg PO Q6H PRN PRN PRN Reason: Pain Score 1-10/Temp > 100.7 F Aspirin (Ecotrin) 81 mg PO DAILY@0800 [facility] Last Admin: 02/19/20 05:32 Dose: 81 mg Documented by: Calcium Acetate (Phoslo Gel Cap) 667 mg PO 1200,1700 [facility] Calcium Acetate (Phoslo Gel Cap) 1,334 mg PO BREAKFAST [facility] Last Admin: 02/19/20 10:07 Dose: 1,334 mg Documented by: Clopidogrel Bisulfate (Plavix) 75 mg PO DAILY [facility] Last Admin: 02/19/20 05:32 Dose: 75 mg Documented by: Heparin Sodium (Porcine) (Heparin Na) 5,000 unit SC Q12 [facility] Last Admin: 02/19/20 10:09 Dose: Not Given Documented by: Insulin Glargine (Lantus (Bkc)) 14 units SC QHS [facility] Last Admin: 02/18/20 21:11 Dose: 14 u Documented by: Insulin Human Lispro (Humalog Kwikpen (Bk)) 0 unit SC ACHS [facility]; Protocol Last Admin: 02/18/20 22:16 Dose: Not Given Documented by: Levothyroxine Sodium (Synthroid) 175 mcg PO DAILY@0600 [facility] Last Admin: 02/19/20 05:32 Dose: 175 mcg Documented by: Lidocaine/Prilocaine (Emla Cream W/Tegaderm) 1 gm TOPICAL DAILY PRN PRN; Protocol PRN Reason: pre-dialysis Last Admin: 02/19/20 10:57 Dose: 1 applicatio Documented by: Morphine Sulfate () 2 mg IV Q3H PRN PRN PRN Reason: Pain Score 6-10/10 Nystatin (Mycostatin Powder) 1 applic TOPICAL BID [facility]; Protocol Last Admin: 02/19/20 10:10 Dose: 1 applicatio Documented by: Ondansetron HCl (Zofran) 4 mg IV Q8H PRN PRN PRN Reason: NAUSEA/VOMITING Pravastatin Sodium (Pravachol) 80 mg PO QHS [facility] Last Admin: 02/18/20 21:27 Dose: 80 mg Documented by: Sodium Chloride () 10 - 40 ml IV UD PRN PRN Reason: SALINE FLUSH Last Admin: 02/19/20 06:07 Dose: 10 ml Documented by: Tamsulosin HCl (Flomax) 0.4 mg PO QHS [facility] Last Admin: 02/18/20 21:09 Dose: 0.4 mg Documented by: Assessment/Plan All Active Problems (Last Reviewed 01/14/20 @ 14:48 by Ilda Jean PA, PA) ESRD (end stage renal disease) on dialysis (Acute) Problem with dialysis access (Acute) Nephrolithiasis (Resolved) ESRD. HD today. discussed with staff about orders anemia. will get records from [facility] about JOSE CAD. needs CABG. possible transfer to [facility] today after HD dw Dr Guidry
--- NOTE | 2020-02-19 11:38 | DCINST_ITS ---
- Discharge Diagnoses Current Active Problems: Current Active and Chronic Problems (Last Reviewed 01/14/20 @ 14:48 by Ilda JERRY, PA) ESRD (end stage renal disease) on dialysis (Acute) You will use the following diet at home:: Other - as directed by receiving facility Discharge Activity: - - as directed by receiving facility Allergies/Adverse Reactions: Allergies Penicillins [PCN] Allergy (Verified 02/18/20 19:17) Unknown STATES FATHER WAS, NEVER HAS BEEN GIVEN MEDICATION atorvastatin calcium [From Lipitor] Adverse Reaction (Verified 02/18/20 19:17) muscular aches METAL Allergy (Uncoded 02/18/20 15:26) Rash Medications to take at Discharge Insulin Lispro [Humalog] 6 - 8 unit SQ TID PRN 07/23/15 Pravastatin [Pravachol] 80 mg PO DAILY 07/23/15 Tamsulosin HCl [Flomax] 0.4 mg PO QHS 07/23/15 Aspirin E.C. [Ecotrin] 81 mg PO DAILY@0800 09/25/16 B complex with C 20-folic acid 1 mg capsule 1 cap PO DAILY 06/16/18 insulin detemir U-100 100 unit/mL (3 mL) subcutaneous pen 14 unit SC QHS ml 06/16/18 clopidogrel 75 mg tablet 75 mg PO DAILY 09/29/18 Acetaminophen [Tylenol Extra Strength] 500 mg PO DAILY PRN PRN 02/18/20 Calcium Acetate 1,334 mg PO BREAKFAST 02/18/20 Calcium Acetate 667 mg PO BIDCM 02/18/20 Latanoprost/Pf [Latanoprost 0.005% Eye Drop] 1 drp EACH EYE QHS 02/18/20 Levothyroxine Sodium [Synthroid] 175 mcg PO DAILY 02/18/20 Primary Care Physician: Teodoro Mckinley MD [Primary Care Provider] - Please follow up with your Primary Care Physician in: as directed by receiving facility Test Results: Test results from this visit will be discussed in further detail at your follow- up appointment, if applicable. Please Follow Up With: Jorge Tapia MD When: as directed Proposed Discharge Date: 02/19/20
--- NOTE | 2020-02-19 13:08 | PCM.DC.SUM ---
<Osmel Torres - Last Filed: 02/19/20 13:08> Discharge Date and Diagnosis - Problem List Patient Problems: Active and Suspected Problems (Last Reviewed 01/14/20 @ 14:48 by CLARITZA Smith) ESRD (end stage renal disease) on dialysis (Acute) Date of Admission: 02/18/20 Date of Discharge: 02/19/20 - Primary Discharge Diagnosis Acute Problems: Active Problems (Last Reviewed 01/14/20 @ 14:48 by CLARITZA Smith) Chest pain - multivessel CAD ESRD Hx bradycardia, AV block, pacemaker in place T2DM Obesity HTN HLD - Secondary Discharge Diagnosis Chronic Problems: Chronic Problems (Last Reviewed 01/14/20 @ 14:48 by CLARITZA Smith) Presence of permanent cardiac pacemaker (Chronic 09/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 Left ventricular systolic function is normal. The estimated ejection fraction is 60 %. Moderate concentric left ventricular hypertrophy. RAD/Chest 1 View (Portable) IMPRESSION: No active disease. Left Heart Cath: CONCLUSIONS Severe coronary artery disease with calcification especially involving the circumflex arterial system involving the mid circumflex as well as the first obtuse marginal branch. Extensive [id number] collaterals noted filling almost the entire right coronary artery system. Moderate LAD disease noted. RECOMMENDATIONS Will consider high risk PCI versus coronary artery bypass surgery DESCRIPTION OF PROCEDURE The patient arrived to the procedure lab. The risks and benefits of the procedure as well as a full description of our services here and current unavailability of surgical backup were fully explained to the patient and/or their significant other prior to the catheterization. The Timeout was completed, verifying the correct patient and procedure. The patient's procedural site was prepped and draped in the usual fashion. Local anesthetic was given subcutaneously to right radial region with Lidocaine 2%. Using a modified Seldinger technique, arterial access was obtained via the right radial artery, a 6Fr sheath was inserted. Left Coronary Artery selective angiography was performed in multiple views using a 5 Fr. 4.0 Eunice catheter. CORONARY ANGIOGRAPHY DOMINANCE: Right Dominant LEFT HEART ASSESSMENT Left Ventricular Ejection Fraction: by Echo 55 % Normal LV wall motion LEFT MAIN: Mild calcification, Mild luminal irregularities LEFT ANTERIOR DESCENDING ARTERY: PROX LAD: Moderate calcification, Moderate luminal irregularities up to 50% MID LAD: Mild luminal irregularities less than 30% DISTAL LAD: Mild luminal irregularities CIRCUMFLEX ARTERY: PROX CIRC: 90 % Stenosis OM 1: Proximal - 90 % Stenosis RIGHT CORONARY ARTERY: OSTIAL RCA: is occluded COLLATERAL FLOW: Collateral flow from Left to Right Consults: Cardiology - [place] Operations: None Procedures: Cardiac catheterization Summary of Care Provided: Hospital course: The patient is a 79 year old M with pmhx of ESRD on hemodialysis, AV block and bradycardia with pacemaker, HTN, HLD, DMt2, obesity who presented to the ER with chest pain. He had intermittent chest pain about 3 weeks. He was seen in the ER 2 weeks ago, had a CT chest which was negative and sent home. He continued to have intermittent pain. He was seen by cardiology in our ER and the decision was made to admit and undergo heart cath in the AM. The patient demonstrated underlying multivessel disease (report as above). Cardiology recommended transfer to a tertiary center for angioplasty vs CABG. He was discharged in stable condition to [facility]. This patient was seen by Osmel Torres PA-C under the supervision of Doctor Guidry. [] Patient Problems: Active and Suspected Problems (Last Reviewed 01/14/20 @ 14:48 by CLARITZA Smith) ESRD (end stage renal disease) on dialysis (Acute) - Physical Exam Vitals/I&O's: Vital Signs Temp Pulse Resp BP Pulse Ox 98.4 F 60 18 163/69 H 93 02/19/20 12:15 02/19/20 12:15 02/19/20 12:15 02/19/20 12:15 02/19/20 12:15 Oxygen Flow Rate (L/min) 2 Oxygen Delivery Method Room Air Weight: 247 lb 9.266 oz Body Mass Index (BMI) 37.6 Finger Stick Blood Glucose 124 Intake and Output for Last 24 Hours 02/17/20 02/18/20 02/19/20 23:59 23:59 23:59 Intake Total 320 / 320 300 / 300 Balance 320 / 320 300 / 300 General: Alert, Oriented x3, Cooperative HEENT: Atraumatic, PERRLA, EOMI, Normocephalic Neck: Supple, No JVD, Negative Carotid Bruits Lungs: Clear to auscultation, Normal air movement Cardiovascular: Regular rate, No murmurs Abdomen: Bowel Sounds Present, Soft, Non Tender, Obese Extremities: No edema, Capillary Refill Less than 3 Seconds Skin: No rashes, No breakdown Musculoskeletal: No Tenderness to Palpation of Joints or Extremities Neurological: Cranial nerves II-XII grossly intact Psych/Mental Status: Normal Affect, Appropriate, Alert and oriented to time, place, person, mood and affect Laboratory Results 02/18/20 17:08: WBC 5.5, RBC 3.09 L, Hgb 9.8 L, Hct 32.0 L, MCV 103.6 H, MCH 31.7, MCHC 30.6 L, RDW Std Deviation 63.4 H, RDW Coeff of Renan 16.7 H, Plt Count 149 L, MPV 10.1, Immature Gran % (Auto) 0.400, Neut % (Auto) 66.2, Lymph % (Auto) 17.5 L, [place] % (Auto) 10.5 H, Eos % (Auto) 4.7, Baso % (Auto) 0.7, Absolute Neuts (auto) 3.7, Absolute Lymphs (auto) 0.97, Nucleated RBC % 0 02/18/20 17:08: Sodium 139, Potassium 4.9, Chloride 106, Carbon Dioxide 27.0, Anion Gap 6, BUN 48 H, Creatinine 8.23 H*, Estim Creat Clear Calc 7.16, Est GFR (MDRD) Af Amer 8 L, Est GFR (MDRD) Non-Af 7 L, BUN/Creatinine Ratio 5.8 L, Glucose 114 H, Calcium 9.2, Troponin I 0.031 02/18/20 20:32: Troponin I 0.029 02/18/20 21:08: POC Glucose 162 H 02/18/20 22:43: Troponin I 0.034 02/19/20 05:40: Urine Color Yellow, Urine Clarity Clear, Urine pH 5.0, Ur Specific [place] 1.010, Urine Protein 100 H, Urine Glucose (UA) Normal, Urine Ketones 5 H, Urine Occult Blood 10 H, Urine Nitrite Negative, Urine Bilirubin 1 H, Urine Urobilinogen 1 H, Ur Leukocyte Esterase 500 H, Urine RBC 0 SEEN, Urine WBC 25-50 SEEN, Ur Squamous Epith Cells 0 SEEN, Amorphous Sediment RARE, Urine Bacteria RARE, Urine Mucus 0 SEEN 02/19/20 06:35: POC Glucose 122 H Current Medications Acetaminophen (Tylenol) 650 mg PO Q6H PRN PRN PRN Reason: Pain Score 1-10/Temp > 100.7 F Aspirin (Ecotrin) 81 mg PO DAILY@0800 [facility] Last Admin: 02/19/20 05:32 Dose: 81 mg Documented by: Calcium Acetate (Phoslo Gel Cap) 667 mg PO 1200,1700 [facility] Calcium Acetate (Phoslo Gel Cap) 1,334 mg PO BREAKFAST [facility] Last Admin: 02/19/20 10:07 Dose: 1,334 mg Documented by: Clopidogrel Bisulfate (Plavix) 75 mg PO DAILY [facility] Last Admin: 02/19/20 05:32 Dose: 75 mg Documented by: Heparin Sodium (Porcine) (Heparin Na) 5,000 unit SC Q12 [facility] Last Admin: 02/19/20 10:09 Dose: Not Given Documented by: Insulin Glargine (Lantus (Bkc)) 14 units SC QHS [facility] Last Admin: 02/18/20 21:11 Dose: 14 u Documented by: Insulin Human Lispro (Humalog Kwikpen (Bkc)) 0 unit SC ACHS [facility]; Protocol Last Admin: 02/18/20 22:16 Dose: Not Given Documented by: Levothyroxine Sodium (Synthroid) 175 mcg PO DAILY@0600 [facility] Last Admin: 02/19/20 05:32 Dose: 175 mcg Documented by: Lidocaine/Prilocaine (Emla Cream W/Tegaderm) 1 gm TOPICAL DAILY PRN PRN; Protocol PRN Reason: pre-dialysis Last Admin: 02/19/20 10:57 Dose: 1 applicatio Documented by: Morphine Sulfate () 2 mg IV Q3H PRN PRN PRN Reason: Pain Score 6-10/10 Nystatin (Mycostatin Powder) 1 applic TOPICAL BID [facility]; Protocol Last Admin: 02/19/20 10:10 Dose: 1 applicatio Documented by: Ondansetron HCl (Zofran) 4 mg IV Q8H PRN PRN PRN Reason: NAUSEA/VOMITING Pravastatin Sodium (Pravachol) 80 mg PO QHS [facility] Last Admin: 02/18/20 21:27 Dose: 80 mg Documented by: Sodium Chloride () 10 - 40 ml IV UD PRN PRN Reason: SALINE FLUSH Last Admin: 02/19/20 06:07 Dose: 10 ml Documented by: Tamsulosin HCl (Flomax) 0.4 mg PO QHS [facility] Last Admin: 02/18/20 21:09 Dose: 0.4 mg Documented by: Discharge Activity: - - as directed by receiving facility Home Medications: Medications to take at Discharge Insulin Lispro [Humalog] 6 - 8 unit SQ TID PRN 07/23/15 Pravastatin [Pravachol] 80 mg PO DAILY 07/23/15 Tamsulosin HCl [Flomax] 0.4 mg PO QHS 07/23/15 Aspirin E.C. [Ecotrin] 81 mg PO DAILY@0800 09/25/16 B complex with C 20-folic acid 1 mg capsule 1 cap PO DAILY 06/16/18 insulin detemir U-100 100 unit/mL (3 mL) subcutaneous pen 14 unit SC QHS ml 06/16/18 clopidogrel 75 mg tablet 75 mg PO DAILY 09/29/18 Acetaminophen [Tylenol Extra Strength] 500 mg PO DAILY PRN PRN 02/18/20 Calcium Acetate 1,334 mg PO BREAKFAST 02/18/20 Calcium Acetate 667 mg PO BIDCM 02/18/20 Latanoprost/Pf [Latanoprost 0.005% Eye Drop] 1 drp EACH EYE QHS 02/18/20 Levothyroxine Sodium [Synthroid] 175 mcg PO DAILY 02/18/20 Primary Care Physician: Teodoro Mckinley MD [Primary Care Provider] - Please follow up with your Primary Care Physician in: as directed by receiving facility Please Follow Up With: Jorge Tapia MD When: as directed Disposition: Acute care Hospital Minutes spent on discharge:: 35 Patient Condition:: Stable Medical Necessity - Tobacco Use Smoking Status: Never smoker Tobacco Use: Non-smoker Meaningful Use Info Meaningful Use Diagnoses (Choose all that apply): None applicable <Kiana Guidry - Last Filed: 02/19/20 13:39> Discharge Date and Diagnosis - Primary Discharge Diagnosis Acute Problems: Active Problems (Last Reviewed 01/14/20 @ 14:48 by Ilda JERRY PA) ESRD (end stage renal disease) on dialysis (Acute) - Secondary Discharge Diagnosis Chronic Problems: Chronic Problems (Last Reviewed 01/14/20 @ 14:48 by Ilda JERRY, PA) Presence of permanent cardiac pacemaker (Chronic 09/27/16) Dual Chamber Pacemaker Implant: 09/27/2016 Essential hypertension (Chronic) Atrioventricular block, second degree (Chronic) Bradycardia, unspecified (Chronic) 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 The patient is a 79 year old M with a past medical history as outlined was admitted through the ED on 02/18/2020 with complaint of chest pain which was dull, midsternal and intermittent with positive shortness of breath. He had been going on for about 3 weeks. He went to [facility] ER about 2 weeks prior to this admission he had CT of the chest and was told was negative and was discharged home. Symptoms however persisted so patient came into the hospital ER on 02/18/2020. Troponins x3 were negative. Cardiology was consulted in light of his past history and decision was made for patient to have cardiac cath. He had cardiac cath on 02/19/2020 which showed underlying multivessel disease. It was the recommended that patient should have CABG. Patient was therefore transferred to [facility] on 02/19/2020 under the hospitalist service with consult to Dr. Yoder the cardiothoracic surgeon. Patient was seen and examined prior to transfer and after cardiac cath. He had no complaints and felt well. Review of systems otherwise negative. Labs and vitals reviewed. Home medications reviewed and reconciled. O/E: Vital Signs Temp Pulse Resp BP Pulse Ox 98.4 F 52 L 18 155/60 H 94 02/19/20 12:15 02/19/20 13:00 02/19/20 13:00 02/19/20 13:00 02/19/20 13:00 [] General: Alert, Oriented x3, Cooperative HEENT: Atraumatic, PERRLA, EOMI, Normocephalic Neck: Supple, No JVD, Negative Carotid Bruits Lungs: Clear to auscultation, Normal air movement Cardiovascular: Regular rate, No murmurs Abdomen: Bowel Sounds Present, Soft, Non Tender, Obese Extremities: No edema, Capillary Refill Less than 3 Seconds Skin: No rashes, No breakdown Musculoskeletal: No Tenderness to Palpation of Joints or Extremities Neurological: Cranial nerves II-XII grossly intact Psych/Mental Status: Normal Affect, Appropriate, Alert and oriented to time, place, person, mood and affect Plan is for transfer to [facility]. Rest as per Osmel Torres PA-C's notes which I reviewed and endorsed. - Physical Exam Vitals/I&O's: Vital Signs Temp Pulse Resp BP Pulse Ox 98.4 F 52 L 18 155/60 H 94 02/19/20 12:15 02/19/20 13:00 02/19/20 13:00 02/19/20 13:00 02/19/20 13:00 Oxygen Flow Rate (L/min) 2 Oxygen Delivery Method Room Air Weight: 247 lb 9.266 oz Body Mass Index (BMI) 37.6 Finger Stick Blood Glucose 124 Intake and Output for Last 24 Hours 02/17/20 02/18/20 02/19/20 23:59 23:59 23:59 Intake Total 320 / 320 300 / 300 Balance 320 / 320 300 / 300 Laboratory Results 02/18/20 17:08: WBC 5.5, RBC 3.09 L, Hgb 9.8 L, Hct 32.0 L, MCV 103.6 H, MCH 31.7, MCHC 30.6 L, RDW Std Deviation 63.4 H, RDW Coeff of Renan 16.7 H, Plt Count 149 L, MPV 10.1, Immature Gran % (Auto) 0.400, Neut % (Auto) 66.2, Lymph % (Auto) 17.5 L, [place] % (Auto) 10.5 H, Eos % (Auto) 4.7, Baso % (Auto) 0.7, Absolute Neuts (auto) 3.7, Absolute Lymphs (auto) 0.97, Nucleated RBC % 0 02/18/20 17:08: Sodium 139, Potassium 4.9, Chloride 106, Carbon Dioxide 27.0, Anion Gap 6, BUN 48 H, Creatinine 8.23 H*, Estim Creat Clear Calc 7.16, Est GFR (MDRD) Af Amer 8 L, Est GFR (MDRD) Non-Af 7 L, BUN/Creatinine Ratio 5.8 L, Glucose 114 H, Calcium 9.2, Troponin I 0.031 02/18/20 20:32: Troponin I 0.029 02/18/20 21:08: POC Glucose 162 H 02/18/20 22:43: Troponin I 0.034 02/19/20 05:40: Urine Color Yellow, Urine Clarity Clear, Urine pH 5.0, Ur Specific [place] 1.010, Urine Protein 100 H, Urine Glucose (UA) Normal, Urine Ketones 5 H, Urine Occult Blood 10 H, Urine Nitrite Negative, Urine Bilirubin 1 H, Urine Urobilinogen 1 H, Ur Leukocyte Esterase 500 H, Urine RBC 0 SEEN, Urine WBC 25-50 SEEN, Ur Squamous Epith Cells 0 SEEN, Amorphous Sediment RARE, Urine Bacteria RARE, Urine Mucus 0 SEEN 02/19/20 06:35: POC Glucose 122 H Current Medications Acetaminophen (Tylenol) 650 mg PO Q6H PRN PRN PRN Reason: Pain Score 1-10/Temp > 100.7 F Aspirin (Ecotrin) 81 mg PO DAILY@0800 [facility] Last Admin: 02/19/20 05:32 Dose: 81 mg Documented by: Calcium Acetate (Phoslo Gel Cap) 667 mg PO 1200,1700 [facility] Calcium Acetate (Phoslo Gel Cap) 1,334 mg PO BREAKFAST [facility] Last Admin: 02/19/20 10:07 Dose: 1,334 mg Documented by: Clopidogrel Bisulfate (Plavix) 75 mg PO DAILY [facility] Last Admin: 02/19/20 05:32 Dose: 75 mg Documented by: Heparin Sodium (Porcine) (Heparin Na) 5,000 unit SC Q12 [facility] Last Admin: 02/19/20 10:09 Dose: Not Given Documented by: Insulin Glargine (Lantus (Bkc)) 14 units SC QHS [facility] Last Admin: 02/18/20 21:11 Dose: 14 u Documented by: Insulin Human Lispro (Humalog Kwikpen (Bkc)) 0 unit SC ACHS [facility]; Protocol Last Admin: 02/18/20 22:16 Dose: Not Given Documented by: Levothyroxine Sodium (Synthroid) 175 mcg PO DAILY@0600 [facility] Last Admin: 02/19/20 05:32 Dose: 175 mcg Documented by: Lidocaine/Prilocaine (Emla Cream W/Tegaderm) 1 gm TOPICAL DAILY PRN PRN; Protocol PRN Reason: pre-dialysis Last Admin: 02/19/20 10:57 Dose: 1 applicatio Documented by: Morphine Sulfate () 2 mg IV Q3H PRN PRN PRN Reason: Pain Score 6-10/10 Nystatin (Mycostatin Powder) 1 applic TOPICAL BID [facility]; Protocol Last Admin: 02/19/20 10:10 Dose: 1 applicatio Documented by: Ondansetron HCl (Zofran) 4 mg IV Q8H PRN PRN PRN Reason: NAUSEA/VOMITING Pravastatin Sodium (Pravachol) 80 mg PO QHS [facility] Last Admin: 02/18/20 21:27 Dose: 80 mg Documented by: Sodium Chloride () 10 - 40 ml IV UD PRN PRN Reason: SALINE FLUSH Last Admin: 02/19/20 06:07 Dose: 10 ml Documented by: Tamsulosin HCl (Flomax) 0.4 mg PO QHS [facility] Last Admin: 02/18/20 21:09 Dose: 0.4 mg Documented by: Discharge Diet: Low fat/ Low Cholesterol Inpatient E&M: 81377 Disch Hosp
[2020-02-19 17:41] LABS: Bedside Glucose 158 mg/dL (70-110)
--- NOTE | 2020-02-19 17:48 | NURSING ---
This nurse called pt , updated her on plan to transfer pt to [facility] this evening. Transportation scheduled for 1999.
[2020-02-19] MEDS: Calcium Acetate 667 MG Capsule PO (18:50)
--- NOTE | 2020-02-19 18:50 | NURSING ---
Update given over the phone to daughter Ioana. She expressed gratitude and understanding of the p[pablo.
--- NOTE | 2020-02-19 18:54 | DIALYSIS ---
HD x 4 hours complete. Tolerated tx well. Ran on 2k bath. UF of 3000ml. Used left arm graft. [place] removed post tx and pressure applied x 15 minutes. Hemostasis achieved. Fresh gauze and tape applied. Positive thrill/bruit noted. Report was given to Arnoldo Floyd.
[2020-02-19] MEDS: Tamsulosin HCl 0.4 MG Capsule PO (21:14)
[2020-02-19] MEDS: Insulin Lispro 100 UNIT/ML INSULN.PEN SC (21:14)
[2020-02-19] MEDS: Pravastatin 80 MG Tablet PO (21:17)
[2020-02-19 21:30] LABS: Bedside Glucose 179 mg/dL (70-110)
== END 2020-02-19 21:40 | disposition short-term general hospital (02) | DRG 286 ==
LOC: ED 16:52 → PCU 18:49
PROVIDERS: Admitting Provider Internal Medicine; Emergency Provider Emergency Medicine; PCP Internal Medicine; Visit Provider Student in an Organized Health Care Education/Training Program
DX: I25.110 Atherosclerotic heart disease of native coronary artery with unstable angina pectoris (principal); N18.6 End stage renal disease; I12.0 Hypertensive chronic kidney disease with stage 5 chronic kidney disease or end stage renal disease; I25.82 Chronic total occlusion of coronary artery; E11.22 Type 2 diabetes mellitus with diabetic chronic kidney disease; I48.0 Paroxysmal atrial fibrillation; D63.1 Anemia in chronic kidney disease; D69.6 Thrombocytopenia, unspecified; E78.5 Hyperlipidemia, unspecified; E03.9 Hypothyroidism, unspecified; E66.9 Obesity, unspecified; Z68.38 Body mass index [BMI] 38.0-38.9, adult; Z99.2 Dependence on renal dialysis; Z79.4 Long term (current) use of insulin; Z79.899 Other long term (current) drug therapy; Z79.82 Long term (current) use of aspirin; Z79.02 Long term (current) use of antithrombotics/antiplatelets; Z79.890 Hormone replacement therapy; Z95.0 Presence of cardiac pacemaker
CPT/HCPCS: 36415; 71045; 80048; 81001; 82962; 84484; 85025; 90937; 93005; 93308; 93454; 99152; 99153; 99283; J7030; Q9967; A4216; C1769; C1894; G0257; J1940

== ENCOUNTER 2020-03-24 20:39 | Inpatient (IN) | payer MEDICARE, SELFPAY ==
[2020-03-10 13:04] VITALS: BMI 38.6
[2020-03-24 20:39] VITALS: BP 155/71; PULSE 73; RESP 16; TEMP 37.9; O2SAT 94; BMI 36.5
--- NOTE | 2020-03-24 20:52 | EKG12_ITS ---
Test Reason : SOB Blood Pressure : / mmHG Vent. Rate : 074 BPM Atrial Rate : 048 BPM P-R Int : 000 ms QRS Dur : 128 ms QT Int : 406 ms P-R-T Axes : 000 025 018 degrees QTc Int : 450 ms Wide QRS rhythm with occasional Premature ventricular complexes Right bundle branch block Abnormal ECG Confirmed by KALEB LOUISE, DAVID ([id number]), industrial editor KRISTEN MEDINA ([id number]) on 03/26/2020 8:57:35 AM Referred By: Priyank Tate Confirmed By:DAVID MANUEL MD
--- NOTE | 2020-03-24 20:54 | ED.VIS.GEN ---
History of Present Illness Chief Complaint: Weakness Informant: Patient, Family Narrative: 79-year-old male with multiple medical problems including end-stage renal disease on dialysis, coronary artery disease status post PCI in February 2020) and obesity. He reports that he has had diarrhea for the past several days but is getting better. tells me is not uncommon for him to have these diarrhea episodes. She states he is got progressively weaker. He notes that he is short of breath but that he has always been short of breath but he is expecting it to get better. They state he has not had any fevers. He has a chronic cough and is not had a change in that. He denies any wounds or rashes. They went to see their primary care physician this evening and was sent to the emergency department. Their doctor did call me stating that he appeared very weak confused and short of breath. Temperature at the office was 99 degrees. Temperature here 100.2 orally. Patient is unable to get out of a wheelchair without 2 person assist. He is unable to bring his legs up onto the bed without assistance. 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 Past Medical History - Allergies and Home Meds Allergies/Adverse Reactions: Allergies Penicillins [PCN] Allergy (Verified 03/24/20 23:01) Unknown STATES FATHER WAS, NEVER HAS BEEN GIVEN MEDICATION atorvastatin calcium [From Lipitor] Adverse Reaction (Verified 03/24/20 23:01) muscular aches METAL Allergy (Uncoded 02/18/20 15:26) Rash Primary Care Physician: Teodoro Mckinley MD [Primary Care Provider] - Prior records reviewed: Yes Surgical History: pacemaker implantation Lives: Spouse/ Significant Other Smoking Status: Never smoker Alcohol: None Drugs: None - Family History Maternal Family History: Family History (Last Reviewed 02/18/20 @ 18:50 by Osmel JERRY PA) Father valve replacement Cancer Uncle CAD (coronary artery disease) Family History: Reports: - - kidney disease, small shriveled kidneys Paternal Family History: Family History (Last Reviewed 02/18/20 @ 18:50 by Osmel JERRY PA) Father valve replacement Cancer Uncle CAD (coronary artery disease) Family History: Reports: - - diabetes Review of Systems General: Reports: Malaise. Denies: Chills, Fever, Sweats Eyes: Denies: Visual changes - bilaterally, Diplopia ENT: Denies: Rhinorrhea, Sore throat Cardiovascular: Denies: Chest pain, Palpitations Respiratory: Reports: Dyspnea, Cough. Denies: Dyspnea on exertion Gastrointestinal: Reports: Diarrhea. Denies: Abdominal pain, Nausea, Vomiting, Melena, Hematochezia Genitourinary: Denies: Dysuria, Hematuria, Frequency Musculoskeletal: Denies: Back pain, Extremity Pain Skin: Denies: Rash, Wounds Neurological: Denies: Headache, Weakness, Numbness Physical Exam Vital Signs/Narrative: Vital Signs Temp Pulse Resp BP Pulse Ox 03/24/20 20:39 100.2 F H 73 16 155/71 H 94 Inital Vital Signs reviewed: Yes General: Well nourished, Well developed, Obese, No Acute Distress Head: Normocephalic, Atraumatic Eyes: Perrl, EOMI ENT: Moist mucous membranes, No rhinorrhea Neck: Supple, Nontender Cardiovascular: Regular rate, Regular rhythm, No murmurs Respiratory: CTA bilaterally, Chest nontender, - - Patient is tachypneic Abdomen: Soft, Nontender, Nondistended, Normal bowel sounds Back: Nontender, Normal Inspection Extremities: Nontender, Edema Skin: Normal color, No rash Neurological: Alert, Oriented x3, Cranial nerves II-XII grossly intact, Normal Strength, Normal Sensation Psychological: Normal affect, Normal Mood Diagnostic/Tx/Re-eval Clinical Impression(s) from Imaging Studies Chest X-Ray 03/24/20 21:40 IMPRESSION: Patchy bilateral lower lobe infiltrates. Electronically Signed: Yaya Hughes DO at 22:23 EST Tel [phone], Service support , Laboratory Last Values WBC 3.2 K/mm3 (4.4-11.0) L 03/24/20 21:24 RBC 2.74 M/mm3 (4.6-6.2) L 03/24/20 21:24 Hgb 8.6 g/dL (13.0-16.5) L 03/24/20 21:24 Hct 28.0 % (40-54) L 03/24/20 21:24 MCV 102.2 fL (80-94) H 03/24/20 21:24 MCH 31.4 pg (27.0-32.0) 03/24/20 21:24 MCHC 30.7 g/dL (32-36) L 03/24/20:24 RDW Std Deviation 61.5 fl (35.1-43.9) H 03/24/20: RDW Coeff of Renan 16.4 % (11.6-14.6) H 03/24/20 21:24 Plt Count 161 K/mm3 (150-450) 03/24/20 21:24 MPV 9.7 fl (6.2-12.0) 03/24/20 21:24 Immature Gran % (Auto) 0.600 % (0.0-0.9) 03/24/20 21: Neut % (Auto) 75.0 % (47-70) H 03/24/20 21:24 Lymph % (Auto) 16.3 % (19-41) L 03/24/20 21:24 [place] % (Auto) 7.2 % (0-10) 03/24/20:24 Eos % (Auto) 0.6 % (0-5) 03/24/20 21: Baso % (Auto) 0.3 % (0-1) 03/24/20 21:24 Absolute Neuts (auto) 2.4 X10^3/uL (2.0-7.7) 03/24/20 21: Absolute Lymphs (auto) 0.52 X10^3/uL (0.83-4.51) L 03/24/20 21:24 Nucleated RBC % 0 % (0-5) 03/24/20 21:24 Differential Comment SEE COMMENT 03/24/20 21: Diff Path Review May 03/24/20 21:24 Platelet Estimate ADEQUATE (ADEQ) 03/24/20 21:24 RBC Morphology N CHROM NORMAL (NORM C&C) 03/24/20 21:24 Hypochromasia RARE 03/24/20 21:24 Anisocytosis 1+ 03/24/20 21:24 Macrocytosis RARE 03/24/20 21:24 Ovalocytes RARE 03/24/20 21:24 PT 13.9 SECONDS (11.7-14.9) 03/24/20 21:24 INR 1.1 03/24/20 21:24 APTT 36.1 Seconds (24.1-36.2) 03/24/20 21:24 Sodium 138 mmol/L (136-145) 03/24/20 21:24 Potassium 4.2 mmol/L (3.5-5.1) 03/24/20 21:24 Chloride 101 mmol/L (98-107) 03/24/20 21:24 Carbon Dioxide 26.0 mmol/L (21.0-32.0) 03/24/20 21:24 Anion Gap 11 (5-15) 03/24/20 21:24 BUN 64 mg/dL (7-18) H 03/24/20 21:24 Creatinine 9.20 mg/dL (0.70-1.30) H* 03/24/20 21:24 Estim Creat Clear Calc 6.40 ml/min 03/24/20 21:24 Est GFR (MDRD) Af Amer 7 mL/min (>60) L 03/24/20 21:24 Est GFR (MDRD) Non-Af 6 mL/min (>60) L 03/24/20 21:24 BUN/Creatinine Ratio 7.0 RATIO (10-20) L 03/24/20 21:24 Glucose 124 mg/dL (74-106) H 03/24/20 21:24 Lactic Acid 1.0 mmol/L (0.4-1.9) 03/24/20 21:24 Calcium 8.8 mg/dL (8.5-10.1) 03/24/20 21:24 Total Bilirubin 0.40 mg/dL (0.20-1.00) 03/24/20 21:24 AST 26 U/L (15-37) 03/24/20 21:24 ALT 22 U/L (16-61) 03/24/20 21:24 Alkaline Phosphatase 67 U/L (45-117) 03/24/20 21:24 Troponin I 0.124 ng/mL (<0.045) H 03/24/20 21:24 Total Protein 6.5 g/dL (6.4-8.2) 03/24/20 21:24 Albumin 2.9 g/dL (3.2-5.0) L 03/24/20 21:24 Globulin 3.6 g/dL (2.2-4.2) 03/24/20 21:24 Albumin/Globulin Ratio 0.8 RATIO (0.9-2.4) L 03/24/20 21:24 - Medical Decision Making Patient appears to have infiltrates on chest x-ray and leukopenia. Anemia is chronic. He received Rocephin and azithromycin. He received these before I knew that he was a dialysis patient. Additional antibiotics were held until his Covid returned. Creatinine is elevated at 9 but he is due for dialysis tomorrow. COVID-19 was positive. He cannot be cared for at home as he is too weak. Plan is admission ED Disposition - Plan for ED Patient: Disposition: Acute Care [facility] Diagnosis: Pneumonia, ESRD (end stage renal disease) on dialysis, Debility, COVID-19, Chronic anemia Referrals: Teodoro Mckinley MD [Primary Care Provider] -
[2020-03-24 21:23] VITALS: BP 143/59; PULSE 74; RESP 22; TEMP 37.4; O2SAT 94
[2020-03-24] MEDS: Acetaminophen 500 MG Tablet 1000 MG PO (21:25)
[2020-03-24 21:39] LABS: Absolute Lymphocyte Count 0.52 X10^3/uL (0.83-4.51); Absolute Neutrophil Count 2.4 X10^3/uL (2.0-7.7); Basophil# 0.01 X10^3/uL; Basophil% 0.3 % (0-1); Eosinophil# 0.02 X10^3/uL; Eosinophils% 0.6 % (0-5); Hemoglobin 8.6 g/dL (13.0-16.5); Lymphocyte # 0.52 X10^3/ul (4.0); Lymphocyte % 16.3 % (19-41); Mean Corp Hgb Conc 30.7 g/dL (32-36); Mean Corpuscular Hgb 31.4 pg (27.0-32.0); Mean Corpuscular Volume 102.2 fL (80-94); Mean Platelet Vol. 9.7 fl (6.2-12.0); Monocyte# 0.23 X10^3/uL; Monocyte% 7.2 % (0-10); NRBC Flagged by Analyzer 0 % (0-5); POSITIVE DIFFERENTIAL YES; Platelet Count 161 K/mm3 (150-450); RBC Distribution Width CV 16.4 % (11.6-14.6); RBC Distribution Width SD 61.5 fl (35.1-43.9); Red Blood Count 2.74 M/mm3 (4.6-6.2); White Blood Count 3.2 K/mm3 (4.4-11.0)
--- NOTE | 2020-03-24 21:40 | RAD_ITS ---
STUDY: X-RAY CHEST REASON FOR EXAM: Male, 79 years old. INCREASED WEAKNESS TECHNIQUE: Frontal view COMPARISON: 02/18/2020 FINDINGS: Stable right-sided pacemaker. The lungs are expanded. Patchy bilateral lower lobe infiltrates. Normal size heart. Normal mediastinum and ilia. Normal visualized pulmonary arteries. Normal visualized aortic arch and descending thoracic aorta. Normal visualized thoracic spine. Normal visualized ribs, clavicles, and shoulders. There is a vascular stent over the left axilla. There is no demonstrated abnormality of the visualized soft tissue structures of the upper abdomen. RAD/Chest 1 View (Portable) IMPRESSION: Patchy bilateral lower lobe infiltrates. Electronically Signed: Yaya Hughes DO at 22:23 EST Tel [phone], Service support ,
[2020-03-24 21:48] LABS: International Normalized Ratio 1.1; Prothrombin Time (Protime)PT. 13.9 SECONDS (11.7-14.9)
[2020-03-24 21:49] LABS: Partial Thromboplast Time 36.1 Seconds (24.1-36.2)
[2020-03-24 21:51] LABS: Differential Indicated SCAN CRITERIA MET
[2020-03-24 22:06] VITALS: BP 154/67; PULSE 69; RESP 22; O2SAT 93
[2020-03-24 22:08] LABS: ALB/GLOB Ratio 0.8 RATIO (0.9-2.4); AST(SGOT) 26 U/L (15-37); Alanine Aminotransfer ALT/SGPT 22 U/L (16-61); Albumin, Serum 2.9 g/dL (3.2-5.0); Alkaline Phosphatase 67 U/L (45-117); Anion Gap 11 (5-15); Anisocytosis 1+; BUN 64 mg/dL (7-18); Calcium,Total 8.8 mg/dL (8.5-10.1); Chloride 101 mmol/L (98-107); EST Glomerular Filtration Rate 6 mL/min (>60); Est Glom Filt Rate - Afr Amer 7 mL/min (>60); Globulin 3.6 g/dL (2.2-4.2); Glucose 124 mg/dL (74-106); Hypochromasia RARE; Macrocytosis RARE; Ovalocyte RARE; Platelet Estimate ADEQUATE (ADEQ); Potassium 4.2 mmol/L (3.5-5.1); Protein, Total 6.5 g/dL (6.4-8.2); Red Cell Morphology N CHROM NORMAL (NORM C&C); Sodium Level 138 mmol/L (136-145)
[2020-03-24 22:22] VITALS: BP 146/66; PULSE 65; RESP 20; TEMP 37.3; O2SAT 95
[2020-03-24] MEDS: Ceftriaxone 1 GM/50 ML BAG IV (22:59)
[2020-03-24 23:22] VITALS: BP 164/67; PULSE 60; RESP 18; TEMP 37; O2SAT 92
[2020-03-25] VITALS (15 sets, daily range): BP systolic 135–165; BP diastolic 48–76; PULSE 60–67; RESP 18–20; TEMP 34.5–36.8; O2SAT 95–100; BMI 37.4
[2020-03-25] MEDS: dexAMETHasone 10 MG/ML Vial IV (00:57)
--- NOTE | 2020-03-25 01:16 | HP.PCM_ITS ---
Problem List (1) SARS (severe acute respiratory syndrome) Status: Acute (2) COVID-19 Status: Acute (3) Pneumonia Status: Acute (4) Debility Status: Acute (5) Chronic anemia Status: Chronic (6) History of coronary artery stent placement Status: Chronic Comment: PTCA/MARTINA to LCx/OM 1 on 02/21/2020 at [facility]; (7) Atherosclerosis of coronary artery of [place] heart without angina pectoris Status: Chronic Qualifiers: Coronary Disease-Associated Artery/Lesion type: [place] artery Qualified Code(s): I25.10 - Atherosclerotic heart disease of [place] coronary artery without angina pectoris Comment: PTCA/MARTINA to LCx/OM 1 on 02/21/2020 at [facility]; (8) ESRD (end stage renal disease) on dialysis Status: Chronic (9) Presence of permanent cardiac pacemaker Status: Chronic Comment: Dual Chamber Pacemaker Implant: 09/27/2016 (10) Essential hypertension Status: Chronic (11) Problem with dialysis access Status: Inactive Qualifiers: Encounter type: initial encounter Qualified Code(s): T82.898A - Other specified complication of vascular prosthetic devices, implants and grafts, initial encounter (12) Atrioventricular block, second degree Status: Chronic (13) Bradycardia, unspecified Status: Chronic (14) 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 Associated with his symptoms is shortness of breath and intermittent dry cough. Patient went to see his PCP. Because patient was very weak his PCP sent sent patient to the emergency department. Patient reports a change in taste and smell. Chest x-ray at emergency department was remarkable for patchy infiltrates. Covid was positive. Past Medical History Past Medical History (Chronic Problems): Chronic Problems (Last Reviewed 03/25/20 @ 02:[address] Priyank Tate MD) Chronic anemia (Chronic) History of coronary artery stent placement (Chronic 02/21/20) PTCA/MARTINA to LCx/OM 1 on 02/21/2020 at [facility]; Atherosclerosis of coronary artery of [place] heart without angina pectoris (Chronic) PTCA/MARTINA to LCx/OM 1 on 02/21/2020 at [facility]; ESRD (end stage renal disease) on dialysis (Chronic) Presence of permanent cardiac pacemaker (Chronic 09/27/16) Dual Chamber Pacemaker Implant: 09/27/2016 Essential hypertension (Chronic) Atrioventricular block, second degree (Chronic) Bradycardia, unspecified (Chronic) 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) HLD (hyperlipidemia) (Chronic) Chronic renal failure (Chronic) Medical History: Medical History (Last Reviewed 03/25/20 @ 02:[address] Priyank Tate MD) Atherosclerosis of coronary artery of [place] heart without angina pectoris (Chronic) I25.10 PTCA/MARTINA to LCx/OM 1 on 02/21/2020 at [facility]; ESRD (end stage renal disease) on dialysis (Chronic) N18.6, Z99.2 Essential hypertension (Chronic) I10 Problem with dialysis access (Acute) T82.898A Atrioventricular block, second degree (Chronic) I44.1 Bradycardia, unspecified (Chronic) R00.1 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) E11.59 HLD (hyperlipidemia) (Chronic) E78.5 Chronic renal failure (Chronic) N18.9 Thyroid disease E07.9 Anemia D64.9 Atrial fibrillation I48.91 History of renal calculi Z87.442 Hypoglycemia E16.2 First degree atrioventricular block (Inactive) I44.0 Hyperkalemia (Inactive) E87.5 Allergies Penicillins [PCN] Allergy (Verified 03/24/20 23:01) Unknown STATES FATHER WAS, NEVER HAS BEEN GIVEN MEDICATION atorvastatin calcium [From Lipitor] Adverse Reaction (Verified 03/24/20 23:01) muscular aches METAL Allergy (Uncoded 02/18/20 15:26) Rash Home Medications: Ambulatory Orders Medication Instructions Recorded Insulin Lispro [Humalog] 6 - 8 unit SQ TID PRN 07/23/15 Pravastatin [Pravachol] 80 mg PO DAILY 07/23/15 Tamsulosin HCl [Flomax] 0.4 mg PO QHS 07/23/15 Aspirin E.C. [Ecotrin] 81 mg PO DAILY@0800 09/25/16 insulin detemir U-100 100 unit/mL 14 unit SC QHS ml 06/16/18 (3 mL) subcutaneous pen vitamin B complex and vitamin C 1 cap PO DAILY 06/16/18 no.20-folic acid 1 mg capsule clopidogrel 75 mg tablet 75 mg PO DAILY 09/29/18 Acetaminophen [Tylenol Extra 500 mg PO DAILY PRN PRN 02/18/20 Strength] Calcium Acetate 1,334 mg PO BREAKFAST 02/18/20 Calcium Acetate 667 mg PO BIDCM 02/18/20 Latanoprost/Pf [Latanoprost 0.005% 1 drp EACH EYE QHS 02/18/20 Eye Drop] Levothyroxine Sodium [Synthroid] 175 mcg PO DAILY 02/18/20 metoprolol tartrate 25 mg tablet 12.5 mg PO BID tab 03/10/20 midodrine 5 mg tablet 5 mg PO TID 03/10/20 Surgical History: Surgical History (Last Reviewed 03/25/20 @ 02:[address] Priyank Tate MD) Presence of permanent cardiac pacemaker (Chronic) Onset Date: 09/27/16 Z95.0 Dual Chamber Pacemaker Implant: 09/27/2016 History of arthroplasty of right shoulder Z98.890 History of biopsy Z98.890 renal 05/14/2015 History of inguinal hernia repair Z98.890, Z87.19 History of tonsillectomy Z90.89 hx fistula placement in left arm History of left heart catheterization Onset Date: 02/19/20 Z98.890 Surgical History: pacemaker implantation Lives: Spouse/ Significant Other Smoking Status: Never smoker Alcohol: None Drugs: None - *Family History Maternal Family History: Family History (Last Reviewed 03/25/20 @ 02:[address] Priyank Tate MD) Father valve replacement Cancer Uncle CAD (coronary artery disease) History Items: - - kidney disease, small shriveled kidneys Paternal Family History: Family History (Last Reviewed 03/25/20 @ 02:[address] Priyank Tate MD) Father valve replacement Cancer Uncle CAD (coronary artery disease) History Items: - - diabetes Review of Systems Constitutional: Reports: Malaise, Weakness, Fatigue. Denies: Chills, Fever, Weight Change HEENT: Denies: Head Aches, Sinus Congestion, Sinus Drainage Cardiovascular: Denies: Chest Pain, Palpitations Respiratory: Reports: Cough, Shortness of Breath. Denies: Sputum production Gastrointestinal: Denies: Abdominal Pain, Nausea, Vomiting Genitourinary: Denies: Dysuria Musculoskeletal: Denies: Joint Pain, Joint Tenderness Skin: Denies: Rash, Wounds Neurological: Denies: Numbness, Tingling, Focal weakness Psychiatric: Denies: Anxiety, Depression, Homicidal Ideations, Suicidal Ideations Hematologic/ Lymphatic: Denies: Easy Bruising, Easy Bleeding VTE Information - Inpt Only VTE Present on Admission: No VTE Mechan Device Prophylaxis: None VTE Pharm Prophylaxis ordered?: Yes Patient Problems: Active and Suspected Problems (Last Reviewed 03/25/20 @ 02:[address] Priyank Tate MD) Pneumonia (Acute) Debility (Acute) COVID-19 (Acute) SARS (severe acute respiratory syndrome) (Acute) - Physical Exam Vitals/I&O's: Vital Signs Temp Pulse Resp BP Pulse Ox 98.3 F 61 20 H 165/76 H 98 03/25/20 00:22 03/25/20 00:22 03/25/20 00:22 03/25/20 00:22 03/25/20 00:22 Oxygen Flow Rate (L/min) 2 Oxygen Delivery Method Nasal Cannula Weight: 108.862 kg Body Mass Index (BMI) 36.5 Finger Stick Blood Glucose 124 Intake and Output for Last 24 Hours 03/23/20 03/24/20 03/25/20 23:59 23:59 23:59 Intake Total 50 / 50 255 / 255 Balance 50 / 50 255 / 255 General: Oriented x3, Cooperative, Lethargic HEENT: Atraumatic, PERRLA, EOMI, Normocephalic Neck: Supple, No JVD, Negative Carotid Bruits Lungs: Wheezes Cardiovascular: Regular rate, No murmurs Abdomen: Bowel Sounds Present, Soft, Non Tender Extremities: No edema, Capillary Refill Less than 3 Seconds Skin: No rashes, No breakdown Musculoskeletal: No Tenderness to Palpation of Joints or Extremities Neurological: Cranial nerves II-XII grossly intact Psych/Mental Status: Normal Affect, Appropriate Laboratory Results 03/24/20 21:24: WBC 3.2 L, RBC 2.74 L, Hgb 8.6 L, Hct 28.0 L, MCV 102.2 H, MCH 31.4, MCHC 30.7 L, RDW Std Deviation 61.5 H, RDW Coeff of Renan 16.4 H, Plt Count 161, MPV 9.7, Immature Gran % (Auto) 0.600, Neut % (Auto) 75.0 H, Lymph % (Auto) 16.3 L, [place] % (Auto) 7.2, Eos % (Auto) 0.6, Baso % (Auto) 0.3, Absolute Neuts (auto) 2.4, Absolute Lymphs (auto) 0.52 L, Nucleated RBC % 0, Differential Comment SEE COMMENT, Diff Path Review September, Platelet Estimate ADEQUATE, RBC Morphology N CHROM, Hypochromasia RARE, Anisocytosis 1+, Macrocytosis RARE, Ovalocytes RARE 03/24/20 21:24: PT 13.9, INR 1.1, APTT 36.1 03/24/20 21:24: Sodium 138, Potassium 4.2, Chloride 101, Carbon Dioxide 26.0, Anion Gap 11, BUN 64 H, Creatinine 9.20 H*, Estim Creat Clear Calc 6.40, Est GFR (MDRD) Af Amer 7 L, Est GFR (MDRD) Non-Af 6 L, BUN/Creatinine Ratio 7.0 L, Glucose 124 H, Calcium 8.8, Total Bilirubin 0.40, AST 26, ALT 22, Alkaline Phosphatase 67, Troponin I 0.124 H, Total Protein 6.5, Albumin 2.9 L, Globulin 3.6, Albumin/Globulin Ratio 0.8 L 03/24/20 21:24: Lactic Acid 1.0 03/24/20 21:30: COVID-19 (MARY) Detected Assessment/Plan All Active Problems (Last Reviewed 03/25/20 @ 02:[address] Priyank Tate MD) Pneumonia (Acute) Debility (Acute) COVID-19 (Acute) SARS (severe acute respiratory syndrome) (Acute) Nephrolithiasis (Resolved) SARS COVID-19 infection Chest x-ray interpreted by radiologist and lateral chest x-ray image interpreted by myself: Patchy bilateral lower lobe infiltrates. COVID-19 was positive. Procalcitonin ordered. D-dimer elevated will obtain a CTA chest. Patient is dialysis patients and next dialysis is on 03/25/2020. Patient received ceftriaxone and azithromycin at the emergency department. Tylenol for fever and Mucinex for cough ordered. Albuterol as needed Received Decadron 10 mg IV at emergency department; and continued on Decadron 6 mg p.o. daily. Pulmonary medicine consult and infectious disease consult. Debility Likely secondary to COVID-19 PT and OT to work with patient Treatment for Covid as above. Diabetes mellitus Blood glucose is mildly elevated. De-escalate home dose of long-acting insulin due to risk of hypoglycemia. Hold prandial insulin. Accu-Chek QA CHS with correction scale insulin. Obstructive sleep apnea CPAP continued End-stage renal disease on dialysis Nephrology consult. DVT prophylaxis Subcutaneous Lovenox. Inpatient E&M: 87578 Init Hosp L3
[2020-03-25 02:09] LABS: D-Dimer Quantitative (DVT/PE) 1.97 FEU/ug/m (0.27-0.49)
--- NOTE | 2020-03-25 02:22 | CT_ITS ---
STUDY: CTA CHEST REASON FOR EXAM: Male, 79 years old. Covid. Shortness of breath and cough. RADIATION DOSAGE (If Supplied By Facility): CTDIvol = ( 24.54 ) mGy, DLP = ( 578.54 ) mGycm TECHNIQUE: The examination was performed with the intravenous administration of IV 100mL [id number]-370. Post-processing of the angiographic images was performed, with multiplanar reformation and 3D reconstruction. Individualized dose optimization techniques were used for this CT. COMPARISON: None. FINDINGS: Normal enhancement of the main pulmonary artery and right and left pulmonary arteries. Normal enhancement of the bilateral peripheral pulmonary arteries. There is no demonstrated pulmonary embolism. Thoracic aorta demonstrates no aneurysmal dilatation or dissection. Mitral annular, aortic root, and coronary artery calcifications. Normal pericardium. Shotty mediastinal and hilar lymph nodes. Normal visualized trachea and bronchi. The lungs are well expanded. Patchy nodular groundglass infiltrates throughout both lungs with a midlung and lung base predominance. Small bilateral pleural effusions, right greater than left. No pneumothorax. Normal chest wall structures. Multilevel degenerative change of the spine. Normal visualized upper abdomen. CT/CTA Chest W/WO Contrast IMPRESSION: 1. Patchy nodular groundglass infiltrates throughout both lungs with a midlung and lung base predominance, consistent with a Covid pneumonia pattern 2. Small bilateral pleural effusions, right greater than left. 3. Reactive mediastinal and hilar lymph nodes. 4. No acute pulmonary embolism. Electronically Signed: Rc Love MD at 3:58 EST Tel , Service support ,
[2020-03-25 02:35] LABS: Procalcitonin 0.18 ng/mL (0.00-0.09)
--- NOTE | 2020-03-25 02:41 | NURSING ---
ct scan states pt can have contrast if having dialysis w/in 24hrs, dr aware see physician notification. primary rn aware
[2020-03-25 05:53] LABS: Absolute Lymphocyte Count 0.33 X10^3/uL (0.83-4.51); Absolute Neutrophil Count 2.2 X10^3/uL (2.0-7.7); Basophil# 0.01 X10^3/uL; Basophil% 0.4 % (0-1); Hemoglobin 8.3 g/dL (13.0-16.5); Lymphocyte # 0.33 X10^3/ul (4.0); Lymphocyte % 12.6 % (19-41); Mean Corp Hgb Conc 30.7 g/dL (32-36); Mean Corpuscular Hgb 30.7 pg (27.0-32.0); Mean Platelet Vol. 9.4 fl (6.2-12.0); Monocyte# 0.09 X10^3/uL; Monocyte% 3.4 % (0-10); NRBC Flagged by Analyzer 0 % (0-5); Neutrophil # 2.16 X10^3/uL (2.7-7.7); Neutrophil % 82.5 % (47-70); POSITIVE DIFFERENTIAL YES; POSITIVE MORPHOLOGY YES; Platelet Count 151 K/mm3 (150-450); RBC Distribution Width CV 16.4 % (11.6-14.6); RBC Distribution Width SD 61.1 fl (35.1-43.9); White Blood Count 2.6 K/mm3 (4.4-11.0)
[2020-03-25 05:56] LABS: Differential Indicated SCAN CRITERIA MET
[2020-03-25 06:25] LABS: Atypical Lymphocyte RARE %; Differential Comment SCANNED; Platelet Estimate ADEQUATE (ADEQ)
[2020-03-25 06:26] LABS: Anisocytosis RARE; Hypochromasia 1+; Macrocytosis RARE; Polychromasia RARE
[2020-03-25 06:31] LABS: Anion Gap 10 (5-15); BUN 70 mg/dL (7-18); BUN/Creat Ratio 7.3 RATIO (10-20); Calcium,Total 8.2 mg/dL (8.5-10.1); Chloride 98 mmol/L (98-107); Creatinine, Serum 9.58 mg/dL (0.70-1.30); EST Glomerular Filtration Rate 6 mL/min (>60); Est Glom Filt Rate - Afr Amer 7 mL/min (>60); Estimated Creatinine Clearance 6.15 ml/min; Glucose 166 mg/dL (74-106); Potassium 4.5 mmol/L (3.5-5.1); Sodium Level 133 mmol/L (136-145)
--- NOTE | 2020-03-25 06:56 | PCM.PN.HOSP ---
Patient Problems: Active and Suspected Problems (Last Reviewed 03/25/20 @ 02:[address] Priyank Tate MD) Pneumonia (Acute) Debility (Acute) COVID-19 (Acute) SARS (severe acute respiratory syndrome) (Acute) Subjective: Patient with no acute events since admission early this morning and notes feeling somewhat improved since initial presentation but still having fatigue, malaise, concern for loose stools with any coughing fits but no marked diarrhea since presentation. Discussed patient presentation with his pricing intern with planned dialysis today as Tuesday regimen. Patient denies nausea, emesis, abdominal pain, chest pain. Objective: Physical Examination: General: awake, alert, oriented x 3 and cooperative, seated upright in the MedSur bed, no acute distress, fatigued appearing. Skin: normal color, turgor, no icterus, cyanosis. HEENT: AT/NC, EOMI, PERRLA, dry MM. Lungs: Diminished breath sounds throughout, greater bases, currently effort improved, no rales, ronchi or wheezing. Heart: Bradycardic with regular rhythm; no gallop, rub audible. Abdomen: soft, obese, NTTP, ND, hyperactive BS. Extremities: no cyanosis, clubbing, or edema, + thrill AVF. Neurological: patient awake, alert, oriented as noted; cognitive function peers baseline intact; pupils equally reactive to light and accomodation; cranial nerves II-XII grossly normal, moving all 4 extremities, fatigued appearing, strength moderately to severely global decrease secondary to acute presentation. Psychiatric: affect appears flat, fatigued, no acute evidence of depressive or anxiety feelings. Vitals/I&O's: Vital Signs Temp Pulse Resp BP Pulse Ox 96.5 F L 60 18 152/75 H 100 03/25/20 02:11 03/25/20 03:00 03/25/20 02:11 03/25/20 02:11 03/25/20 02:11 Oxygen Flow Rate (L/min) 2 Oxygen Delivery Method Nasal Cannula Weight: 246 lb 0.574 oz Body Mass Index (BMI) 37.4 Finger Stick Blood Glucose 124 Intake and Output for Last 24 Hours 03/23/20 03/24/20 03/25/20 23:59 23:59 23:59 Intake Total 50 / 50 355 / 355 Output Total 100 / 100 Balance 50 / 50 255 / 255 Laboratory Results 03/24/20 21:24: WBC 3.2 L, RBC 2.74 L, Hgb 8.6 L, Hct 28.0 L, MCV 102.2 H, MCH 31.4, MCHC 30.7 L, RDW Std Deviation 61.5 H, RDW Coeff of Renan 16.4 H, Plt Count 161, MPV 9.7, Immature Gran % (Auto) 0.600, Neut % (Auto) 75.0 H, Lymph % (Auto) 16.3 L, [place] % (Auto) 7.2, Eos % (Auto) 0.6, Baso % (Auto) 0.3, Absolute Neuts (auto) 2.4, Absolute Lymphs (auto) 0.52 L, Nucleated RBC % 0, Differential Comment SEE COMMENT, Diff Path Review May foll, Platelet Estimate ADEQUATE, RBC Morphology N CHROM, Hypochromasia RARE, Anisocytosis 1+, Macrocytosis RARE, Ovalocytes RARE 03/24/20 21:24: PT 13.9, INR 1.1, APTT 36.1 03/24/20 21:24: Sodium 138, Potassium 4.2, Chloride 101, Carbon Dioxide 26.0, Anion Gap 11, BUN 64 H, Creatinine 9.20 H*, Estim Creat Clear Calc 6.40, Est GFR (MDRD) Af Amer 7 L, Est GFR (MDRD) Non-Af 6 L, BUN/Creatinine Ratio 7.0 L, Glucose 124 H, Calcium 8.8, Total Bilirubin 0.40, AST 26, ALT 22, Alkaline Phosphatase 67, Troponin I 0.124 H, Total Protein 6.5, Albumin 2.9 L, Globulin 3.6, Albumin/Globulin Ratio 0.8 L 03/24/20 21:24: Lactic Acid 1.0 03/24/20 21:24: D-Dimer Quant (PE/DVT) 1.97 H* 03/24/20 21:24: Procalcitonin 0.18 H 03/24/20 21:30: COVID-19 (MARY) Detected 03/25/20 05:46: WBC 2.6 L, RBC 2.70 L, Hgb 8.3 L, Hct 27.0 L, MCV 100.0 H, MCH 30.7, MCHC 30.7 L, RDW Std Deviation 61.1 H, RDW Coeff of Renan 16.4 H, Plt Count 151, MPV 9.4, Immature Gran % (Auto) 1.100 H, Neut % (Auto) 82.5 H, Lymph % (Auto) 12.6 L, [place] % (Auto) 3.4, Eos % (Auto) 0.0, Baso % (Auto) 0.4, Absolute Neuts (auto) 2.2, Absolute Lymphs (auto) 0.33 L, Nucleated RBC % 0, Differential Comment SCANNED, Diff Path Review May foll, Atypical Lymphocytes RARE, Platelet Estimate ADEQUATE, Polychromasia RARE, Hypochromasia 1+, Anisocytosis RARE, Macrocytosis RARE 03/25/20 05:46: Sodium 133 L, Potassium 4.5, Chloride 98, Carbon Dioxide 25.0, Anion Gap 10, BUN 70 H, Creatinine 9.58 H*, Estim Creat Clear Calc 6.15, Est GFR (MDRD) Af Amer 7 L, Est GFR (MDRD) Non-Af 6 L, BUN/Creatinine Ratio 7.3 L, Glucose 166 H, Calcium 8.2 L Current Medications Acetaminophen (Acetaminophen 325 Mg Tablet) 650 mg PO Q6H PRN PRN PRN Reason: Pain Score 1-10/Temp > 100.7 F Albuterol Sulfate (Albuterol Ih 8.5 Gm (Proair) Inhaler (200 Puffs)) 2 puff INHALATION Q4H PRN PRN PRN Reason: SOB/WHEEZING Aspirin (Aspirin E.C. 81 Mg Tablet) 81 mg PO DAILY@0800 [facility] Calamine/Phenol (Menthol/Lanolin/Calamine/Znox 113 Gm Tube) 1 applic TOPICAL BID KADIE; Protocol Calcium Acetate (Calcium Acetate 667 Mg Capsule) 1,334 mg PO BREAKFAST [facility] Clopidogrel Bisulfate (Clopidogrel Bisulfate 75 Mg Tablet) 75 mg PO DAILY [facility] Dexamethasone (Dexamethasone 4 Mg Tablet) 6 mg PO DAILY@0800 [facility] Dextrose (Dextrose 50%-Water 25 Gm/50 Ml Disp.Syrin) 0 gm IV X1 PRN; Protocol PRN Reason: Hypoglycemia Enoxaparin Sodium (Enoxaparin 30 Mg/0.3 Ml Syringe) 30 mg SC DAILY [facility] Glucagon (Glucagon 1 Mg/Ml Syringe) 1 mg IM .X1 PRN PRN Reason: Hypoglycemia Guaifenesin (Guaifenesin 10 Ml Udc (200mg/10ml)) 10 ml PO Q4H PRN PRN PRN Reason: COUGH Sodium Chloride () 250 mls @ 15 mls/hr IV .[id number] PRN PRN Reason: Saline Flush Insulin Glargine (Insulin Glargine 100 Units/Ml Pen) 10 units SC QHS KADIE Insulin Human Lispro (Insulin Lispro 100 Unit/Ml Insuln.Pen) 0 unit SC ACHS [facility]; Protocol Last Admin: 03/25/20 06:24 Dose: Not Given Documented by: Latanoprost (Latanoprost 0.005% 1 Bottle) 1 drop EACH EYE QHS [facility] Levothyroxine Sodium (Levothyroxine 175 Mcg Tablet) 175 mcg PO DAILY [facility] Melatonin (Melatonin 3 Mg Tablet) 3 mg PO QHS PRN PRN PRN Reason: INSOMNIA Metoprolol Tartrate (Metoprolol Tartrate 25 Mg Tablet) 12.5 mg PO BID [facility] Midodrine (Midodrine Hcl 5 Mg Tablet) 5 mg PO TIDCM [facility] Multivit/Ca Carb/B Cmplx/FA/Prenat (Folic Acid/Vitamin B Comp W-C 1 Capsule) 1 capsule PO DAILY [facility] Nutritional Formula (Lactose Free) (Glucerna Shake 120 Ml Liquid) 120 ml PO 4X/DAY [facility] Ondansetron HCl (Ondansetron 4 Mg/2 Ml Vial) 4 mg IV Q8H PRN PRN PRN Reason: NAUSEA/VOMITING Pravastatin Sodium (Pravastatin 80 Mg Tablet) 80 mg PO DAILY [facility] Sodium Chloride (0.9% Saline Lock 10 Ml Syringe) 10 - 40 ml IV UD PRN PRN Reason: SALINE FLUSH Tamsulosin HCl (Tamsulosin Hcl 0.4 Mg Capsule) 0.4 mg PO QHS [facility] STROKE Vital Signs/Narrative: Vital Signs Pulse 03/25/20 03:00 60 Medical Necessity - Tobacco Use Smoking Status: Never smoker Tobacco Use: Non-smoker Assessment/Plan All Active Problems (Last Reviewed 03/25/20 @ 02:[address] 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 Acute hypoxia with dyspnea, Cough, Fever, diarrhea with Bilateral Pneumonia secondary to Acute Viral Syndrome, COVID-19: Admitted to medical surgical floor on telemetry, saturations improved with oxygen supplementation to low 90s, continued on IV Decadron, not candidate for remdesivir given renal function underlying, pending ABO blood type assessment, ID consulted and may consider plasma, will obtain CPK, D-dimer, INR with PT, fibrinogen, CRP as well as BMP per initial COVID admission panel, noted recent ECHO, will cycle cardiac enzymes, continue supportive care. 2. Indeterminate cardiac enzyme: Suspected secondary to #1, hypoxia associated, troponin 0.124, maintain on cardiac telemetry, will cycle cardiac enzymes, magnesium level 2.4. Recent 02/19/2020 echocardiogram with normal LV size, normal LV systolic function, EF 60% with moderate concentric LVH noted. Recent 02/19/2020 cardiac catheterization with severe coronary artery disease with calcification especially involving the circumflex arterial system involving the mid circumflex as well as the first obtuse marginal branch with noted extensive left to right collaterals filling almost the entire right coronary system with moderate LAD disease noted with transfer to tertiary facility for consideration CABG with eventually PCI performed. Continued on aspirin, Plavix, metoprolol, statin therapy. 3. ESRD: We will continue patient and pricing intern consultation, dialysis Tuesday, , Tuesday regimen to be continued. 4. AOCD: Admission hemoglobin 8.6, similar to baseline, anemia of chronic disease associated with end-stage renal disease, defer treatments to nephrology, consulted. 5. History of 2nd AVB: That is post pacemaker placement, patient with recent interrogation during prior presentation without marked finding. 6. Diabetes mellitus type II: Hold oral home regimen, continue home insulin regimen, ADA diet, accu checks w/ ISS. 7. Hypertension: Continue home regimen including metoprolol with hold parameters especially given concurrent usage of midodrine with dialysis, PRN hydralazine. 8. Hyperlipidemia: Continue home statin regimen. 9. Hypothyroidism: Continue home synthroid regimen. 10. DVT prophylaxis: SCDs, Lovenox. 11. Code Status: DNR-CCA, no intubation. Procedures: Other Procedure - See Report - Billin, unable to bill, admitted same day.
[2020-03-25 07:49] LABS: Magnesium 2.4 mg/dL (1.6-2.6)
[2020-03-25] MEDS: Aspirin E.C. 81 MG Tablet PO (09:31)
[2020-03-25] MEDS: Menthol/Lanolin/Calamine/Znox 113 GM Tube 1 APPLIC TOPICAL ×2 (09:32→23:40)
[2020-03-25] MEDS: Calcium Acetate 667 MG Capsule 1334 MG PO (09:32)
[2020-03-25] MEDS: dexAMETHasone 4 MG Tablet 6 MG PO (09:33)
[2020-03-25] MEDS: Enoxaparin 30 MG/0.3 ML Syringe SC (09:33)
[2020-03-25] MEDS: Levothyroxine 175 MCG Tablet PO (09:34)
[2020-03-25] MEDS: Pravastatin 80 MG Tablet PO (09:34)
[2020-03-25] MEDS: Folic Acid/Vitamin B Comp W-C 1 Capsule 1 CAP PO (09:34)
[2020-03-25] MEDS: Clopidogrel Bisulfate 75 MG Tablet PO (09:36)
[2020-03-25 10:01] LABS: Bedside Glucose 177 mg/dL (70-110)
--- NOTE | 2020-03-25 11:07 | CON.PCM_ITS ---
Problem List (1) COVID-19 Status: Acute Reason for Consult: covid Consulted by: Dr. Mendoza History of Present Illness: The patient is a 79 year old M with ESRD, presented with 1 week of fatigue, weakness, mild cough/dyspnea, some diarrhea. No aches, no headache, no change in taste or smell. mildly sick at home, has not been tested. Came to ED, some hypoxia, given dex, feeling a little better today. CT showed no PE. Full ROS performed and neg except as noted above. - Medical History Past Medical History (Chronic Problems): Chronic Problems (Last Reviewed 03/25/20 @ 02:[address] Priyank Tate MD) Chronic anemia (Chronic) History of coronary artery stent placement (Chronic 02/21/20) PTCA/MARTINA to LCx/OM 1 on 02/21/2020 at [facility]; Atherosclerosis of coronary artery of [place] heart without angina pectoris (Chronic) PTCA/MARTINA to LCx/OM 1 on 02/21/2020 at [facility]; ESRD (end stage renal disease) on dialysis (Chronic) Presence of permanent cardiac pacemaker (Chronic 09/27/16) Dual Chamber Pacemaker Implant: 09/27/2016 Essential hypertension (Chronic) Atrioventricular block, second degree (Chronic) Bradycardia, unspecified (Chronic) 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) HLD (hyperlipidemia) (Chronic) Chronic renal failure (Chronic) Allergies/Adverse Reactions: Allergies Penicillins [PCN] Allergy (Verified 03/24/20 23:01) Unknown STATES FATHER WAS, NEVER HAS BEEN GIVEN MEDICATION atorvastatin calcium [From Lipitor] Adverse Reaction (Verified 03/24/20 23:01) muscular aches METAL Allergy (Uncoded 02/18/20 15:26) Rash Home Medications: Ambulatory Orders Medication Instructions Recorded Insulin Lispro [Humalog] 6 - 8 unit SQ TID PRN 07/23/15 Pravastatin [Pravachol] 80 mg PO DAILY 07/23/15 Tamsulosin HCl [Flomax] 0.4 mg PO QHS 07/23/15 Aspirin E.C. [Ecotrin] 81 mg PO DAILY@0800 09/25/16 insulin detemir U-100 100 unit/mL 14 unit SC QHS ml 06/16/18 (3 mL) subcutaneous pen vitamin B complex and vitamin C 1 cap PO DAILY 06/16/18 no.20-folic acid 1 mg capsule clopidogrel 75 mg tablet 75 mg PO DAILY 09/29/18 Acetaminophen [Tylenol Extra 500 mg PO DAILY PRN PRN 02/18/20 Strength] Calcium Acetate 1,334 mg PO BREAKFAST 02/18/20 Calcium Acetate 667 mg PO BIDCM 02/18/20 Latanoprost/Pf [Latanoprost 0.005% 1 drp EACH EYE QHS 02/18/20 Eye Drop] Levothyroxine Sodium [Synthroid] 175 mcg PO DAILY 02/18/20 metoprolol tartrate 25 mg tablet 12.5 mg PO BID tab 03/10/20 midodrine 5 mg tablet 5 mg PO TID 03/10/20 - Social History Tobacco Use: non-smoker Vital Signs Temp Pulse Resp BP Pulse Ox 94.1 F L 60 20 H 150/74 H 100 03/25/20 09:27 03/25/20 10:00 03/25/20 09:27 03/25/20 09:36 03/25/20 09:27 Oxygen Flow Rate (L/min) 2 Oxygen Delivery Method Nasal Cannula Weight: 111.6 kg Body Mass Index (BMI) 37.4 Finger Stick Blood Glucose 124 Laboratory Tests Past 24 Hrs 03/24/20 03/24/20 03/24/20 21:24 21:24 21:24 WBC 3.2 L RBC 2.74 L Hgb 8.6 L Hct 28.0 L MCV 102.2 H MCH 31.4 MCHC 30.7 L RDW Std Deviation 61.5 H RDW Coeff of Renan 16.4 H Plt Count 161 MPV 9.7 Immature Gran % (Auto) 0.600 Neut % (Auto) 75.0 H Lymph % (Auto) 16.3 L [place] % (Auto) 7.2 Eos % (Auto) 0.6 Baso % (Auto) 0.3 Absolute Neuts (auto) 2.4 Absolute Lymphs (auto) 0.52 L Nucleated RBC % 0 Differential Comment SEE COMMENT Diff Path Review May foll Atypical Lymphocytes Platelet Estimate ADEQUATE RBC Morphology N CHROM Polychromasia Hypochromasia RARE Anisocytosis 1+ Macrocytosis RARE Ovalocytes RARE PT 13.9 INR 1.1 APTT 36.1 D-Dimer Quant (PE/DVT) Sodium 138 Potassium 4.2 Chloride 101 Carbon Dioxide 26.0 Anion Gap 11 BUN 64 H Creatinine 9.20 H* Estim Creat Clear Calc 6.40 Est GFR (MDRD) Af Amer 7 L Est GFR (MDRD) Non-Af 6 L BUN/Creatinine Ratio 7.0 L Glucose 124 H Lactic Acid Calcium 8.8 Magnesium Total Bilirubin 0.40 AST 26 ALT 22 Alkaline Phosphatase 67 Troponin I 0.124 H Total Protein 6.5 Albumin 2.9 L Globulin 3.6 Albumin/Globulin Ratio 0.8 L Procalcitonin COVID-19 (MARY) Blood Type 03/24/20 03/24/20 03/24/20 21:24 21:24 21:24 WBC RBC Hgb Hct MCV MCH MCHC RDW Std Deviation RDW Coeff of Renan Plt Count MPV Immature Gran % (Auto) Neut % (Auto) Lymph % (Auto) [place] % (Auto) Eos % (Auto) Baso % (Auto) Absolute Neuts (auto) Absolute Lymphs (auto) Nucleated RBC % Differential Comment Diff Path Review Atypical Lymphocytes Platelet Estimate RBC Morphology Polychromasia Hypochromasia Anisocytosis Macrocytosis Ovalocytes PT INR APTT D-Dimer Quant (PE/DVT) 1.97 H* Sodium Potassium Chloride Carbon Dioxide Anion Gap BUN Creatinine Estim Creat Clear Calc Est GFR (MDRD) Af Amer Est GFR (MDRD) Non-Af BUN/Creatinine Ratio Glucose Lactic Acid 1.0 Calcium Magnesium Total Bilirubin AST ALT Alkaline Phosphatase Troponin I Total Protein Albumin Globulin Albumin/Globulin Ratio Procalcitonin 0.18 H COVID-19 (MARY) Blood Type 03/24/20 03/25/20 03/25/20 21:30 05:46 05:46 WBC 2.6 L RBC 2.70 L Hgb 8.3 L Hct 27.0 L MCV 100.0 H MCH 30.7 MCHC 30.7 L RDW Std Deviation 61.1 H RDW Coeff of Renan 16.4 H Plt Count 151 MPV 9.4 Immature Gran % (Auto) 1.100 H Neut % (Auto) 82.5 H Lymph % (Auto) 12.6 L [place] % (Auto) 3.4 Eos % (Auto) 0.0 Baso % (Auto) 0.4 Absolute Neuts (auto) 2.2 Absolute Lymphs (auto) 0.33 L Nucleated RBC % 0 Differential Comment SCANNED Diff Path Review May foll Atypical Lymphocytes RARE Platelet Estimate ADEQUATE RBC Morphology Polychromasia RARE Hypochromasia 1+ Anisocytosis RARE Macrocytosis RARE Ovalocytes PT INR APTT D-Dimer Quant (PE/DVT) Sodium 133 L Potassium 4.5 Chloride 98 Carbon Dioxide 25.0 Anion Gap 10 BUN 70 H Creatinine 9.58 H* Estim Creat Clear Calc 6.15 Est GFR (MDRD) Af Amer 7 L Est GFR (MDRD) Non-Af 6 L BUN/Creatinine Ratio 7.3 L Glucose 166 H Lactic Acid Calcium 8.2 L Magnesium Total Bilirubin AST ALT Alkaline Phosphatase Troponin I Total Protein Albumin Globulin Albumin/Globulin Ratio Procalcitonin COVID-19 (MARY) Detected Blood Type 03/25/20 03/25/20 05:46 10:20 WBC RBC Hgb Hct MCV MCH MCHC RDW Std Deviation RDW Coeff of Renan Plt Count MPV Immature Gran % (Auto) Neut % (Auto) Lymph % (Auto) [place] % (Auto) Eos % (Auto) Baso % (Auto) Absolute Neuts (auto) Absolute Lymphs (auto) Nucleated RBC % Differential Comment Diff Path Review Atypical Lymphocytes Platelet Estimate RBC Morphology Polychromasia Hypochromasia Anisocytosis Macrocytosis Ovalocytes PT INR APTT D-Dimer Quant (PE/DVT) Sodium Potassium Chloride Carbon Dioxide Anion Gap BUN Creatinine Estim Creat Clear Calc Est GFR (MDRD) Af Amer Est GFR (MDRD) Non-Af BUN/Creatinine Ratio Glucose Lactic Acid Calcium Magnesium 2.4 Total Bilirubin AST ALT Alkaline Phosphatase Troponin I Total Protein Albumin Globulin Albumin/Globulin Ratio Procalcitonin COVID-19 (MARY) Blood Type Pending - Other Studies Radiology: [] reviewed Other Studies: [] Route of nutrition/ use of supplements: [] Nutritional Intake: [] IV Site: [] Boswell Catheter: [] - Physical Exam General: Alert, Cooperative, No apparent distress HEENT: Atraumatic, PERRLA, EOMI Neck: Supple, No Nodes Lungs: Diminished Cardiovascular: Regular rate, Regular Rhythm Abdomen: Soft, Non Tender, Non-Distended, Obese Extremities: Edema Skin: No rashes IV Site: Peripheral, without redness Musculoskeletal: No Tenderness to Palpation of Joints or Extremities Neurological: Cranial nerves II-XII grossly intact - Assessment/Plan Antibiotics: [] Assessment/Plan: [] Active and Suspected Problems (Last Reviewed 03/25/20 @ 02:[address] Priyank Tate MD) Pneumonia (Acute) Debility (Acute) COVID-19 (Acute) SARS (severe acute respiratory syndrome) (Acute) Covid - sat of 93 on admit, now 100% on 2L. On dex. Not a candidate for remdesivir due to renal function. Will check ABO, consider plasma, but hold off for now given good saturations and minimal symptoms. Recommended his get tested and quarantine for 2 weeks. Will follow, thank you, d/w Dr. Mendoza
[2020-03-25] MEDS: Insulin Lispro 100 UNIT/ML INSULN.PEN SC ×3 (12:21→23:47)
[2020-03-25] MEDS: Lidocaine/Prilocaine HCl 5 GM Tube 1 GM TOPICAL (12:22)
--- NOTE | 2020-03-25 12:41 | CON.PCM_ITS ---
Consultation - Renal 03/25/20 PCP/ Referring MD: Requesting physician: [] Primary care physician: Dr. Teodoro Mckinley MD - History of Present Illness History of Present Illness: The patient is a 79 year old M medical history of ESRD presented with 1 week of fatigue weakness mild cough dyspnea diarrhea. He did not have any change in taste or smell. The was also mildly sick at home but she has not been tested for COVID-19. He was found to be hypoxic given dexamethasone feels a little bit better today. The CT scan showed no PE. Is Tuesday dialysis. - Allergies Allergies: Allergies Penicillins [PCN] Allergy (Verified 03/24/20 23:01) Unknown STATES FATHER WAS, NEVER HAS BEEN GIVEN MEDICATION atorvastatin calcium [From Lipitor] Adverse Reaction (Verified 03/24/20 23:01) muscular aches METAL Allergy (Uncoded 02/18/20 15:26) Rash - Current Medications Current Medications: Current Medications Acetaminophen (Acetaminophen 325 Mg Tablet) 650 mg PO Q6H PRN PRN PRN Reason: Pain Score 1-10/Temp > 100.7 F Albuterol Sulfate (Albuterol Ih 8.5 Gm (Proair) Inhaler (200 Puffs)) 2 puff INHALATION Q4H PRN PRN PRN Reason: SOB/WHEEZING Aspirin (Aspirin E.C. 81 Mg Tablet) 81 mg PO DAILY@0800 [facility] Last Admin: 03/25/20 09:31 Dose: 81 mg Documented by: Calamine/Phenol (Menthol/Lanolin/Calamine/Znox 113 Gm Tube) 1 applic TOPICAL BID [facility]; Protocol Last Admin: 03/25/20 09:32 Dose: 1 applicatio Documented by: Calcium Acetate (Calcium Acetate 667 Mg Capsule) 1,334 mg PO BREAKFAST [facility] Last Admin: 03/25/20 09:32 Dose: 1,334 mg Documented by: Clopidogrel Bisulfate (Clopidogrel Bisulfate 75 Mg Tablet) 75 mg PO DAILY [facility] Last Admin: 03/25/20 09:36 Dose: 75 mg Documented by: Dexamethasone (Dexamethasone 4 Mg Tablet) 6 mg PO DAILY [facility] Last Admin: 03/25/20 09:33 Dose: 6 mg Documented by: Dextrose (Dextrose 50%-Water 25 Gm/50 Ml Disp.Syrin) 0 gm IV X1 PRN; Protocol PRN Reason: Hypoglycemia Enoxaparin Sodium (Enoxaparin 30 Mg/0.3 Ml Syringe) 30 mg SC DAILY [facility] Last Admin: 03/25/20 09:33 Dose: 30 mg Documented by: Glucagon (Glucagon 1 Mg/Ml Syringe) 1 mg IM .X1 PRN PRN Reason: Hypoglycemia Guaifenesin (Guaifenesin 10 Ml Udc (200mg/10ml)) 10 ml PO Q4H PRN PRN PRN Reason: COUGH Sodium Chloride () 250 mls @ 15 mls/hr IV .[id number] PRN PRN Reason: Saline Flush Insulin Glargine (Insulin Glargine 100 Units/Ml Pen) 10 units SC QHS [facility] Insulin Human Lispro (Insulin Lispro 100 Unit/Ml Insuln.Pen) 0 unit [facility]; Protocol Last Admin: 03/25/20 12:21 Dose: 2 units Documented by: Latanoprost (Latanoprost 0.005% 1 Bottle) 1 drop EACH EYE QHS [facility] Levothyroxine Sodium (Levothyroxine 175 Mcg Tablet) 175 mcg PO DAILY [facility] Last Admin: 03/25/20 09:34 Dose: 175 mcg Documented by: Loperamide HCl (Loperamide 2 Mg Capsule) 2 mg PO Q2H PRN PRN Reason: DIARRHEA/LOOSE STOOLS Melatonin (Melatonin 3 Mg Tablet) 3 mg PO QHS PRN PRN PRN Reason: INSOMNIA Metoprolol Tartrate (Metoprolol Tartrate 25 Mg Tablet) 12.5 mg PO BID [facility] Last Admin: 03/25/20 09:36 Dose: Not Given Documented by: Midodrine (Midodrine Hcl 5 Mg Tablet) 5 mg PO TIDCM [facility] Last Admin: 03/25/20 12:20 Dose: Not Given Documented by: Multivit/Ca Carb/B Cmplx/FA/Prenat (Folic Acid/Vitamin B Comp W-C 1 Capsule) 1 capsule PO DAILY [facility] Last Admin: 03/25/20 09:34 Dose: 1 capsule Documented by: Ondansetron HCl (Ondansetron 4 Mg/2 Ml Vial) 4 mg IV Q8H PRN PRN PRN Reason: NAUSEA/VOMITING Pravastatin Sodium (Pravastatin 80 Mg Tablet) 80 mg PO DAILY [facility] Last Admin: 03/25/20 09:34 Dose: 80 mg Documented by: Sodium Chloride (0.9% Saline Lock 10 Ml Syringe) 10 - 40 ml IV UD PRN PRN Reason: SALINE FLUSH Tamsulosin HCl (Tamsulosin Hcl 0.4 Mg Capsule) 0.4 mg PO QHS [facility] - Past Medical History Past Medical History (Chronic Problems): Chronic Problems (Last Reviewed 03/25/20 @ 02:[address] 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 Priyank Tate MD) Father valve replacement Cancer Uncle CAD (coronary artery disease) History Items: - - kidney disease, small shriveled kidneys Paternal Family History: Family History (Last Reviewed 03/25/20 @ 02:[address] Priyank Tate MD) Father valve replacement Cancer Uncle CAD (coronary artery disease) History Items: - - diabetes Patient Problems: Active and Suspected Problems (Last Reviewed 03/25/20 @ 02:[address] Priyank Tate MD) Pneumonia (Acute) Debility (Acute) COVID-19 (Acute) SARS (severe acute respiratory syndrome) (Acute) - Physical Exam Vitals/I&O's: Vital Signs Temp Pulse Resp BP Pulse Ox 94.1 F L 60 20 H 150/74 H 100 03/25/20 09:27 03/25/20 10:00 03/25/20 09:27 03/25/20 09:36 03/25/20 09:27 Oxygen Flow Rate (L/min) 2 Oxygen Delivery Method Nasal Cannula Weight: 111.6 kg Body Mass Index (BMI) 37.4 Finger Stick Blood Glucose 124 Intake and Output for Last 24 Hours 03/23/20 03/24/20 03/25/20 23:59 23:59 23:59 Intake Total 50 / 50 475 / 475 Output Total 160 / 160 Balance 50 / 50 315 / 315 General: - - Examination deferred to prevent transmission of COVID-19 and preserve PPE Laboratory Results 03/24/20 21:24: WBC 3.2 L, RBC 2.74 L, Hgb 8.6 L, Hct 28.0 L, MCV 102.2 H, MCH 31.4, MCHC 30.7 L, RDW Std Deviation 61.5 H, RDW Coeff of Renan 16.4 H, Plt Count 161, MPV 9.7, Immature Gran % (Auto) 0.600, Neut % (Auto) 75.0 H, Lymph % (Auto) 16.3 L, Fountain % (Auto) 7.2, Eos % (Auto) 0.6, Baso % (Auto) 0.3, Absolute Neuts (auto) 2.4, Absolute Lymphs (auto) 0.52 L, Nucleated RBC % 0, Differential Comment SEE COMMENT, Diff Path Review May foll, Platelet Estimate ADEQUATE, RBC Morphology N CHROM, Hypochromasia RARE, Anisocytosis 1+, Macrocytosis RARE, Ovalocytes RARE 03/24/20 21:24: PT 13.9, INR 1.1, APTT 36.1 03/24/20 21:24: Sodium 138, Potassium 4.2, Chloride 101, Carbon Dioxide 26.0, Anion Gap 11, BUN 64 H, Creatinine 9.20 H*, Estim Creat Clear Calc 6.40, Est GFR (MDRD) Af Amer 7 L, Est GFR (MDRD) Non-Af 6 L, BUN/Creatinine Ratio 7.0 L, Glucose 124 H, Calcium 8.8, Total Bilirubin 0.40, AST 26, ALT 22, Alkaline Phosphatase 67, Troponin I 0.124 H, Total Protein 6.5, Albumin 2.9 L, Globulin 3.6, Albumin/Globulin Ratio 0.8 L 03/24/20 21:24: Lactic Acid 1.0 03/24/20 21:24: D-Dimer Quant (PE/DVT) 1.97 H* 03/24/20 21:24: Procalcitonin 0.18 H 03/24/20 21:30: COVID-19 (MARY) Detected 03/25/20 05:46: WBC 2.6 L, RBC 2.70 L, Hgb 8.3 L, Hct 27.0 L, MCV 100.0 H, MCH 30.7, MCHC 30.7 L, RDW Std Deviation 61.1 H, RDW Coeff of Renan 16.4 H, Plt Count 151, MPV 9.4, Immature Gran % (Auto) 1.100 H, Neut % (Auto) 82.5 H, Lymph % (Auto) 12.6 L, Fountain % (Auto) 3.4, Eos % (Auto) 0.0, Baso % (Auto) 0.4, Absolute Neuts (auto) 2.2, Absolute Lymphs (auto) 0.33 L, Nucleated RBC % 0, Differential Comment SCANNED, Diff Path Review May foll, Atypical Lymphocytes RARE, Platelet Estimate ADEQUATE, Polychromasia RARE, Hypochromasia 1+, Anisocytosis RARE, Macrocytosis RARE 03/25/20 05:46: Sodium 133 L, Potassium 4.5, Chloride 98, Carbon Dioxide 25.0, Anion Gap 10, BUN 70 H, Creatinine 9.58 H*, Estim Creat Clear Calc 6.15, Est GFR (MDRD) Af Amer 7 L, Est GFR (MDRD) Non-Af 6 L, BUN/Creatinine Ratio 7.3 L, Glucose 166 H, Calcium 8.2 L 03/25/20 05:46: Magnesium 2.4 03/25/20 06:24: POC Glucose 177 H 03/25/20 10:20: Blood Type A POSITIVE Current Medications Acetaminophen (Acetaminophen 325 Mg Tablet) 650 mg PO Q6H PRN PRN PRN Reason: Pain Score 1-10/Temp > 100.7 F Albuterol Sulfate (Albuterol Ih 8.5 Gm (Proair) Inhaler (200 Puffs)) 2 puff INHALATION Q4H PRN PRN PRN Reason: SOB/WHEEZING Aspirin (Aspirin E.C. 81 Mg Tablet) 81 mg PO DAILY@0800 [facility] Last Admin: 03/25/20 09:31 Dose: 81 mg Documented by: Calamine/Phenol (Menthol/Lanolin/Calamine/Znox 113 Gm Tube) 1 applic TOPICAL BID [facility]; Protocol Last Admin: 03/25/20 09:32 Dose: 1 applicatio Documented by: Calcium Acetate (Calcium Acetate 667 Mg Capsule) 1,334 mg PO BREAKFAST [facility] Last Admin: 03/25/20 09:32 Dose: 1,334 mg Documented by: Clopidogrel Bisulfate (Clopidogrel Bisulfate 75 Mg Tablet) 75 mg PO DAILY [facility] Last Admin: 03/25/20 09:36 Dose: 75 mg Documented by: Dexamethasone (Dexamethasone 4 Mg Tablet) 6 mg PO DAILY [facility] Last Admin: 03/25/20 09:33 Dose: 6 mg Documented by: Dextrose (Dextrose 50%-Water 25 Gm/50 Ml Disp.Syrin) 0 gm IV X1 PRN; Protocol PRN Reason: Hypoglycemia Enoxaparin Sodium (Enoxaparin 30 Mg/0.3 Ml Syringe) 30 mg SC DAILY [facility] Last Admin: 03/25/20 09:33 Dose: 30 mg Documented by: Glucagon (Glucagon 1 Mg/Ml Syringe) 1 mg IM .X1 PRN PRN Reason: Hypoglycemia Guaifenesin (Guaifenesin 10 Ml Udc (200mg/10ml)) 10 ml PO Q4H PRN PRN PRN Reason: COUGH Sodium Chloride () 250 mls @ 15 mls/hr IV .[id number] PRN PRN Reason: Saline Flush Insulin Glargine (Insulin Glargine 100 Units/Ml Pen) 10 units SC QHS [facility] Insulin Human Lispro (Insulin Lispro 100 Unit/Ml Insuln.Pen) 0 unit SC [facility]; Protocol Last Admin: 03/25/20 12:21 Dose: 2 units Documented by: Latanoprost (Latanoprost 0.005% 1 Bottle) 1 drop EACH EYE QHS [facility] Levothyroxine Sodium (Levothyroxine 175 Mcg Tablet) 175 mcg PO DAILY [facility] Last Admin: 03/25/20 09:34 Dose: 175 mcg Documented by: Loperamide HCl (Loperamide 2 Mg Capsule) 2 mg PO Q2H PRN PRN Reason: DIARRHEA/LOOSE STOOLS Melatonin (Melatonin 3 Mg Tablet) 3 mg PO QHS PRN PRN PRN Reason: INSOMNIA Metoprolol Tartrate (Metoprolol Tartrate 25 Mg Tablet) 12.5 mg PO BID [facility] Last Admin: 03/25/20 09:36 Dose: Not Given Documented by: Midodrine (Midodrine Hcl 5 Mg Tablet) 5 mg PO TIDCM [facility] Last Admin: 03/25/20 12:20 Dose: Not Given Documented by: Multivit/Ca Carb/B Cmplx/FA/Prenat (Folic Acid/Vitamin B Comp W-C 1 Capsule) 1 capsule PO DAILY [facility] Last Admin: 03/25/20 09:34 Dose: 1 capsule Documented by: Ondansetron HCl (Ondansetron 4 Mg/2 Ml Vial) 4 mg IV Q8H PRN PRN PRN Reason: NAUSEA/VOMITING Pravastatin Sodium (Pravastatin 80 Mg Tablet) 80 mg PO DAILY [facility] Last Admin: 03/25/20 09:34 Dose: 80 mg Documented by: Sodium Chloride (0.9% Saline Lock 10 Ml Syringe) 10 - 40 ml IV UD PRN PRN Reason: SALINE FLUSH Tamsulosin HCl (Tamsulosin Hcl 0.4 Mg Capsule) 0.4 mg PO QHS [facility] Assessment/Plan All Active Problems (Last Reviewed 03/25/20 @ 02:[address] Priyank Tate MD) Pneumonia (Acute) Debility (Acute) COVID-19 (Acute) SARS (severe acute respiratory syndrome) (Acute) Nephrolithiasis (Resolved) ESRD continue TTS schedule.For HD today. Anemia JOSE with dialysis CKD MBD continue binders COVID-19 mgmt per ID.
[2020-03-25 12:50] LABS: Bedside Glucose 194 mg/dL (70-110)
[2020-03-25] MEDS: Loperamide 2 MG Capsule PO (12:57)
[2020-03-25 13:03] LABS: Mucous, Urine 0 SEEN /hpf (<or=2+); Red Blood Cells-Urine 0 SEEN /hpf (0-5)
[2020-03-25 13:07] LABS: Color, Urine Yellow (Yellow); Glucose, Dipstick Normal (Normal); Ketone-Dipstick Negative (Negative); Leukocyte Esterase-Dipstick 100 /ul (Negative); Nitrite-Dipstick Negative (Negative); Occult Blood-Urine 25 /ul (Negative); Protein-Dipstick 30 mg/dl (Negative); Urine Clarity Sl. Cloudy (Clear); Urine Urobilinogen Normal (Normal)
--- NOTE | 2020-03-25 13:13 | CASEMGMT ---
RN CM Assessment Note Introduced role of CM to patient's via phone. The patient is not feeling well and unable to participate in assessment at this time. Demographics, PCP verified. The patient lives @ home with his in two story home. Patient has first floor set up with bedroom and bathroom. Per , patient was ambulatory with his cane, however needed some assistance with showering. does main cooking, cleaning at home. Patient was driving self to dialysis until last Tuesday when his son drove him due to weakness and not feeling well. would like patient to return home on discharge. - is isolating at home. She had mild symptoms, but did not test for COVID. -Children are able to on line order groceries for patient and his . -Family can provide transportation home. Diagnosis: COVID PCP: Dr. Mckinley Specialists: [facility] for fistula; Dr. Tapia for cardiology; Nephrology Dr. Ziegler Insurance: [facility]. Advantage Dialysis: TTS schedule for Preferred Pharmacy: [facility] [place] Prescription Benefit: yes LNOK: Radha Tranportation: patient drives DME: cane, walker, Cpap. If home oxygen is needed, would like [facility] in [place] HHC: none Patient DC Goals: Home on discharge DC Plan: anticipate home. PT/OT evaluations are pending. Patient is on 2L NC currently. CM available for discharge planning coordination. Contact CM for any concerns/needs that may arise. Trice ARAIZA RN ACM
[2020-03-25 13:17] LABS: Bacteria RARE /hpf (None Seen); Squamous Epithelial Cells - UA 0-5 SEEN /hpf (0-5); Urine Bilirubin Dipstick 1 mg/dL (Negative); White Blood Cells 0-5 SEEN /hpf (0-5)
[2020-03-25 13:53] LABS: Pathologist Review Reviewed
[2020-03-25 13:54] LABS: Pathologist Review Reviewed
[2020-03-25 14:55] LABS: CPK Total, Creatine Kinase 133 U/L (39-308)
--- NOTE | 2020-03-25 15:49 | CON.PCM_ITS ---
Problem List (1) Debility Status: Acute (2) COVID-19 Status: Acute (3) Chronic anemia Status: Chronic (4) History of coronary artery stent placement Status: Chronic Comment: PTCA/MARTINA to LCx/OM 1 on 02/21/2020 at [facility]; (5) Atherosclerosis of coronary artery of [place] heart without angina pectoris Status: Chronic Qualifiers: Coronary Disease-Associated Artery/Lesion type: [place] artery Qualified Code(s): I25.10 - Atherosclerotic heart disease of [place] coronary artery without angina pectoris Comment: PTCA/MARTINA to LCx/OM 1 on 02/21/2020 at [facility]; (6) ESRD (end stage renal disease) on dialysis Status: Chronic (7) Presence of permanent cardiac pacemaker Status: Chronic Comment: Dual Chamber Pacemaker Implant: 09/27/2016 (8) Essential hypertension Status: Chronic (9) 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 (10) HLD (hyperlipidemia) Status: Chronic Qualifiers: Hyperlipidemia type: unspecified Qualified Code(s): E78.5 - Hyperlipidemia, unspecified (11) Chronic renal failure Status: Chronic Qualifiers: Chronic kidney disease stage: stage 5 Qualified Code(s): N18.5 - Chronic kidney disease, stage 5 Reason for Consult Date of Consultation: 03/25/20 Reason for Consultation: COVID-19 History of Present Illness: The patient is a 79 year old M with past medical history listed below, who presented [facility] on 03/24/2020 secondary to progressive shortness of breath and a feeling of fatigue. Patient reportedly had also had diarrhea for several days, but felt this was improving. Patient reported no subjective fevers. Patient does have a chronic cough, but did not think this is significantly changed from his baseline. Patient did not have any baseline sores that were being monitored. Patient presented to his PCP and was thought to be very weak and confused, so needed to be evaluated. On presentation to the ER, patient was noted to have a temperature of 100.2 ?F. Patient was too weak to get out of the wheelchair despite 2 people assisting. Patient also required assistance in getting his legs into the bed. Patient was noted to be slightly hypertensive at 155/71, but saturations were 94% on room air. Chest x-ray showed bilateral patchy lower lobe infiltrates. CBC was relatively unremarkable except for chronic anemia of 8.6. Coagulation studies were within normal limits. Patient did have an elevated BUN and creatinine, but was unknown end-stage renal disease. Liver function studies were unremarkable. Patient was placed on Rocephin and azithromycin. Patient's COVID-19 test returned positive, so patient was admitted secondary to concerns for being too weak to go home. Patient is very variable in his response related to exact onset. Patient has reported anything between 8 and 10 days of symptoms. Patient states he is normally in dialysis Tuesday, and Tuesday. Patient reports he has not missed any of his regimen. Patient is unaware of any previous respiratory issues. Review of systems was somewhat difficult secondary to patient being a poor historian. Review of systems otherwise negative from a constitutional, HEENT, respiratory, cardiovascular, GI, genitourinary, musculoskeletal, skin, neurologic, psychiatric and hematologic system unless stated above. Past Medical History Past Medical History (Chronic Problems): Chronic Problems (Last Reviewed 03/25/20 @ 02:[address] Priyank Tate MD) Chronic anemia (Chronic) History of coronary artery stent placement (Chronic 02/21/20) PTCA/MARTINA to LCx/OM 1 on 02/21/2020 at [facility]; Atherosclerosis of coronary artery of [place] heart without angina pectoris (Chronic) PTCA/MARTINA to LCx/OM 1 on 02/21/2020 at [facility]; ESRD (end stage renal disease) on dialysis (Chronic) Presence of permanent cardiac pacemaker (Chronic 09/27/16) Dual Chamber Pacemaker Implant: 09/27/2016 Essential hypertension (Chronic) Atrioventricular block, second degree (Chronic) Bradycardia, unspecified (Chronic) 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) HLD (hyperlipidemia) (Chronic) Chronic renal failure (Chronic) Medical History: Medical History (Last Reviewed 03/25/20 @ 02:[address] Priyank Tate MD) Atherosclerosis of coronary artery of [place] heart without angina pectoris (Chronic) I25.10 PTCA/MARTINA to LCx/OM 1 on 02/21/2020 at [facility]; ESRD (end stage renal disease) on dialysis (Chronic) N18.6, Z99.2 Essential hypertension (Chronic) I10 Problem with dialysis access (Inactive) T82.898A Atrioventricular block, second degree (Chronic) I44.1 Bradycardia, unspecified (Chronic) R00.1 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) E11.59 HLD (hyperlipidemia) (Chronic) E78.5 Chronic renal failure (Chronic) N18.9 Thyroid disease E07.9 Anemia D64.9 Atrial fibrillation I48.91 History of renal calculi Z87.442 Hypoglycemia E16.2 First degree atrioventricular block (Inactive) I44.0 Hyperkalemia (Inactive) E87.5 Allergies Penicillins [PCN] Allergy (Verified 03/24/20 23:01) Unknown STATES FATHER WAS, NEVER HAS BEEN GIVEN MEDICATION atorvastatin calcium [From Lipitor] Adverse Reaction (Verified 03/24/20 23:01) muscular aches METAL Allergy (Uncoded 02/18/20 15:26) Rash Home Medications: Ambulatory Orders Medication Instructions Recorded Insulin Lispro [Humalog] 6 - 8 unit SQ TID PRN 07/23/15 Pravastatin [Pravachol] 80 mg PO DAILY 07/23/15 Tamsulosin HCl [Flomax] 0.4 mg PO QHS 07/23/15 Aspirin E.C. [Ecotrin] 81 mg PO DAILY@0800 09/25/16 insulin detemir U-100 100 unit/mL 14 unit SC QHS ml 06/16/18 (3 mL) subcutaneous pen vitamin B complex and vitamin C 1 cap PO DAILY 06/16/18 no.20-folic acid 1 mg capsule clopidogrel 75 mg tablet 75 mg PO DAILY 09/29/18 Acetaminophen [Tylenol Extra 500 mg PO DAILY PRN PRN 02/18/20 Strength] Calcium Acetate 1,334 mg PO BREAKFAST 02/18/20 Calcium Acetate 667 mg PO BIDCM 02/18/20 Latanoprost/Pf [Latanoprost 0.005% 1 drp EACH EYE QHS 02/18/20 Eye Drop] Levothyroxine Sodium [Synthroid] 175 mcg PO DAILY 02/18/20 metoprolol tartrate 25 mg tablet 12.5 mg PO BID tab 03/10/20 midodrine 5 mg tablet 5 mg PO TID 03/10/20 Surgical History: Surgical History (Last Reviewed 03/25/20 @ 02:[address] Priyank Tate MD) Presence of permanent cardiac pacemaker (Chronic) Onset Date: 09/27/16 Z95.0 Dual Chamber Pacemaker Implant: 09/27/2016 History of arthroplasty of right shoulder Z98.890 History of biopsy Z98.890 renal 05/14/2015 History of inguinal hernia repair Z98.890, Z87.19 History of tonsillectomy Z90.89 hx fistula placement in left arm History of left heart catheterization Onset Date: 02/19/20 Z98.890 Surgical History: pacemaker implantation Lives: Spouse/ Significant Other Smoking Status: Never smoker Tobacco Use: Non-smoker Alcohol: None Drugs: None - *Family History Maternal Family History: Family History (Last Reviewed 03/25/20 @ 02:[address] Priyank Tate MD) Father valve replacement Cancer Uncle CAD (coronary artery disease) History Items: - - kidney disease, small shriveled kidneys Paternal Family History: Family History (Last Reviewed 03/25/20 @ 02:[address] Priyank Tate MD) Father valve replacement Cancer Uncle CAD (coronary artery disease) History Items: - - diabetes Review of Systems Unable to obtain accurate/complete ROS d/t: Poor historian Patient Problems: Active and Suspected Problems (Last Reviewed 03/25/20 @ 02:[address] Priyank Tate MD) Pneumonia (Acute) Debility (Acute) COVID-19 (Acute) SARS (severe acute respiratory syndrome) (Acute) Objective: Chest x-ray was personally reviewed and I agree with formal interpretation. CTA of the chest showed patchy groundglass opacities bilaterally with small pleural effusions, likely not big enough to tap. Patient did have some reactive media stinal and hilar lymphadenopathy noted. No PEs were appreciated. Patient has not had any pulmonary function test previously. Patient did have a heart catheterization last month showing an EF of 55% with right dominant vasculature and mild irregularities. Patient did have significant circumflex pathology noted. - Physical Exam Vitals/I&O's: Vital Signs Temp Pulse Resp BP Pulse Ox 34.5 C L 60 20 H 150/74 H 100 03/25/20 09:27 03/25/20 14:00 03/25/20 09:27 03/25/20 09:36 03/25/20 09:27 Oxygen Flow Rate (L/min) 2 Oxygen Delivery Method Room Air Weight: 111.6 kg Body Mass Index (BMI) 37.4 Finger Stick Blood Glucose 124 Intake and Output for Last 24 Hours 03/23/20 03/24/20 03/25/20 23:59 23:59 23:59 Intake Total 50 / 50 475 / 475 Output Total 160 / 160 Balance 50 / 50 315 / 315 General: Alert, Oriented x3, Cooperative, No apparent distress, - - Obese. On dialysis during evaluation. HEENT: Atraumatic, PERRLA, EOMI, Normocephalic, - - Slight scleral injection without icterus Oral: Moist Mucosa, No Gingival or Mucosal Lesions/ Ulcerations, - - Crowded posterior pharynx Neck: Supple, No Nodes, Trachea Midline, - - Difficult to assess JVD secondary to body habitus and running dialysis Lungs: No rhonchi, No wheeze, No rales, Diminished, - - Symmetric expansion. Cardiovascular: Normal S1, Normal S2, No murmurs, Irregular Rate, No rub noted, No Gallop Abdomen: Bowel Sounds Present, Soft, Non Tender, Non-Distended, Obese Extremities: No clubbing, No cyanosis, Edema - Bilateral lower extremities, - - Signs of vascular insufficiency noted Musculoskeletal: No Tenderness to Palpation of Joints or Extremities Lymphatic: No Cervical, Supraclavicular, or Inguinal Adenopathy Neurological: Cranial nerves II-XII grossly intact, Neuro grossly intact, Motor Exam 5/5 strength throughout Psych/Mental Status: Alert and oriented to time, place, person, mood and affect Laboratory Results 03/24/20 21:24: WBC 3.2 L, RBC 2.74 L, Hgb 8.6 L, Hct 28.0 L, MCV 102.2 H, MCH 31.4, MCHC 30.7 L, RDW Std Deviation 61.5 H, RDW Coeff of [place] 16.4 H, Plt Count 161, MPV 9.7, Immature Gran % (Auto) 0.600, Neut % (Auto) 75.0 H, Lymph % (Auto) 16.3 L, [place] % (Auto) 7.2, Eos % (Auto) 0.6, Baso % (Auto) 0.3, Absolute Neuts (auto) 2.4, Absolute Lymphs (auto) 0.52 L, Nucleated RBC % 0, Differential Comment SEE COMMENT, Diff Path Review Reviewed, Platelet Estimate ADEQUATE, RBC Morphology N CHROM, Hypochromasia RARE, Anisocytosis 1+, Macrocytosis RARE, Ovalocytes RARE 03/24/20 21:24: PT 13.9, INR 1.1, APTT 36.1 03/24/20 21:24: Sodium 138, Potassium 4.2, Chloride 101, Carbon Dioxide 26.0, Anion Gap 11, BUN 64 H, Creatinine 9.20 H*, Estim Creat Clear Calc 6.40, Est GFR (MDRD) Af Amer 7 L, Est GFR (MDRD) Non-Af 6 L, BUN/Creatinine Ratio 7.0 L, Glucose 124 H, Calcium 8.8, Total Bilirubin 0.40, AST 26, ALT 22, Alkaline Phosphatase 67, Troponin I 0.124 H, Total Protein 6.5, Albumin 2.9 L, Globulin 3.6, Albumin/Globulin Ratio 0.8 L 03/24/20 21:24: Lactic Acid 1.0 03/24/20 21:24: D-Dimer Quant (PE/DVT) 1.97 H* 03/24/20 21:24: Procalcitonin 0.18 H 03/24/20 21:30: COVID-19 (MARY) Detected 03/25/20 05:46: WBC 2.6 L, RBC 2.70 L, Hgb 8.3 L, Hct 27.0 L, MCV 100.0 H, MCH 30.7, MCHC 30.7 L, RDW Std Deviation 61.1 H, RDW Coeff of [place] 16.4 H, Plt Count 151, MPV 9.4, Immature Gran % (Auto) 1.100 H, Neut % (Auto) 82.5 H, Lymph % (Auto) 12.6 L, [place] % (Auto) 3.4, Eos % (Auto) 0.0, Baso % (Auto) 0.4, Absolute Neuts (auto) 2.2, Absolute Lymphs (auto) 0.33 L, Nucleated RBC % 0, Differential Comment SCANNED, Diff Path Review Reviewed, Atypical Lymphocytes RARE, Platelet Estimate ADEQUATE, Polychromasia RARE, Hypochromasia 1+, Anisocytosis RARE, Macrocytosis RARE 03/25/20 05:46: Sodium 133 L, Potassium 4.5, Chloride 98, Carbon Dioxide 25.0, Anion Gap 10, BUN 70 H, Creatinine 9.58 H*, Estim Creat Clear Calc 6.15, Est GFR (MDRD) Af Amer 7 L, Est GFR (MDRD) Non-Af 6 L, BUN/Creatinine Ratio 7.3 L, Glucose 166 H, Calcium 8.2 L 03/25/20 05:46: Magnesium 2.4 03/25/20 05:46: Total Creatine Kinase 133, C-React Prot Ext Range 64.60 H 03/25/20 05:46: B-Natriuretic Peptide 1899.0 H 03/25/20 06:24: POC Glucose 177 H 03/25/20 10:20: Blood Type A POSITIVE 03/25/20 12:09: POC Glucose 194 H 03/25/20 12:35: Urine Color Yellow, Urine Clarity Sl. Cloudy, Urine pH 6.0, Ur Specific [place] 1.010, Urine Protein 30 H, Urine Glucose (UA) Normal, Urine Ketones Negative, Urine Occult Blood 25 H, Urine Nitrite Negative, Urine Bilirubin 1 H, Urine Urobilinogen Normal, Ur Leukocyte Esterase 100 H, Urine RBC 0 SEEN, Urine WBC 0-5 SEEN, Ur Squamous Epith Cells 0-5 SEEN, Urine Bacteria RARE, Urine Mucus 0 SEEN 03/25/20 15:15: PT Pending, INR Pending, Fibrinogen Pending, D-Dimer Quant (PE/DVT) Pending Current Medications Acetaminophen (Acetaminophen 325 Mg Tablet) 650 mg PO Q6H PRN PRN PRN Reason: Pain Score 1-10/Temp > 100.7 F Albuterol Sulfate (Albuterol Ih 8.5 Gm (Proair) Inhaler (200 Puffs)) 2 puff INHALATION Q4H PRN PRN PRN Reason: SOB/WHEEZING Aspirin (Aspirin E.C. 81 Mg Tablet) 81 mg PO DAILY@0800 REPLACED BY [facility] Last Admin: 03/25/20 09:31 Dose: 81 mg Documented by: Calamine/Phenol (Menthol/Lanolin/Calamine/Znox 113 Gm Tube) 1 applic TOPICAL BID REPLACED BY [facility]; Protocol Last Admin: 03/25/20 09:32 Dose: 1 applicatio Documented by: Calcium Acetate (Calcium Acetate 667 Mg Capsule) 1,334 mg PO BREAKFAST REPLACED BY [facility] Last Admin: 03/25/20 09:32 Dose: 1,334 mg Documented by: Clopidogrel Bisulfate (Clopidogrel Bisulfate 75 Mg Tablet) 75 mg PO DAILY REPLACED BY [facility] Last Admin: 03/25/20 09:36 Dose: 75 mg Documented by: Dexamethasone (Dexamethasone 4 Mg Tablet) 6 mg PO DAILY REPLACED BY [facility] Last Admin: 03/25/20 09:33 Dose: 6 mg Documented by: Dextrose (Dextrose 50%-Water 25 Gm/50 Ml Disp.Syrin) 0 gm IV X1 PRN; Protocol PRN Reason: Hypoglycemia Enoxaparin Sodium (Enoxaparin 30 Mg/0.3 Ml Syringe) 30 mg SC DAILY REPLACED BY [facility] Last Admin: 03/25/20 09:33 Dose: 30 mg Documented by: Glucagon (Glucagon 1 Mg/Ml Syringe) 1 mg IM .X1 PRN PRN Reason: Hypoglycemia Guaifenesin (Guaifenesin 10 Ml Udc (200mg/10ml)) 10 ml PO Q4H PRN PRN PRN Reason: COUGH Sodium Chloride () 250 mls @ 15 mls/hr IV .[id number] PRN PRN Reason: Saline Flush Insulin Glargine (Insulin Glargine 100 Units/Ml Pen) 10 units SC QHS REPLACED BY [facility] Insulin Human Lispro (Insulin Lispro 100 Unit/Ml Insuln.Pen) 0 unit SC ACHS REPLACED BY [facility]; Protocol Last Admin: 03/25/20 12:21 Dose: 2 units Documented by: Latanoprost (Latanoprost 0.005% 1 Bottle) 1 drop EACH EYE QHS REPLACED BY [facility] Levothyroxine Sodium (Levothyroxine 175 Mcg Tablet) 175 mcg PO DAILY REPLACED BY [facility] Last Admin: 03/25/20 09:34 Dose: 175 mcg Documented by: Loperamide HCl (Loperamide 2 Mg Capsule) 2 mg PO Q2H PRN PRN Reason: DIARRHEA/LOOSE STOOLS Last Admin: 03/25/20 12:57 Dose: 2 mg Documented by: Melatonin (Melatonin 3 Mg Tablet) 3 mg PO QHS PRN PRN PRN Reason: INSOMNIA Metoprolol Tartrate (Metoprolol Tartrate 25 Mg Tablet) 12.5 mg PO BID REPLACED BY [facility] Last Admin: 03/25/20 09:36 Dose: Not Given Documented by: Midodrine (Midodrine Hcl 5 Mg Tablet) 5 mg PO TIDCM REPLACED BY [facility] Last Admin: 03/25/20 12:20 Dose: Not Given Documented by: Multivit/Ca Carb/B Cmplx/FA/Prenat (Folic Acid/Vitamin B Comp W-C 1 Capsule) 1 capsule PO DAILY REPLACED BY [facility] Last Admin: 03/25/20 09:34 Dose: 1 capsule Documented by: Ondansetron HCl (Ondansetron 4 Mg/2 Ml Vial) 4 mg IV Q8H PRN PRN PRN Reason: NAUSEA/VOMITING Pravastatin Sodium (Pravastatin 80 Mg Tablet) 80 mg PO DAILY REPLACED BY [facility] Last Admin: 03/25/20 09:34 Dose: 80 mg Documented by: Sodium Chloride (0.9% Saline Lock 10 Ml Syringe) 10 - 40 ml IV UD PRN PRN Reason: SALINE FLUSH Tamsulosin HCl (Tamsulosin Hcl 0.4 Mg Capsule) 0.4 mg PO QHS REPLACED BY [facility] Clinical Impression(s) from Imaging Studies Chest X-Ray 03/24/20 21:40 IMPRESSION: Patchy bilateral lower lobe infiltrates. Electronically Signed: Yaya Hughes DO at 22:23 EST Tel [phone], Service support , Chest CTA 03/25/20 02:22 IMPRESSION: 1. Patchy nodular groundglass infiltrates throughout both lungs with a midlung and lung base predominance, consistent with a Covid pneumonia pattern 2. Small bilateral pleural effusions, right greater than left. 3. Reactive mediastinal and hilar lymph nodes. 4. No acute pulmonary embolism. Electronically Signed: Rc Love MD at 3:58 EST Tel , Service support , Assessment/Plan All Active Problems (Last Reviewed 03/25/20 @ 02:[address] Priyank Tate MD) Pneumonia (Acute) Debility (Acute) COVID-19 (Acute) SARS (severe acute respiratory syndrome) (Acute) Nephrolithiasis (Resolved) RECOMMENDATIONS: 1. Monitor for complications of Decadron 2. Continue with dialysis per nephrology 3. Monitor for hypotension given history of end-stage renal 4. Walking oximetry prior to discharge 5. Not a candidate for remdesivir given renal function 6. Unclear if plasma would be helpful in my opinion IMPRESSIONS: 1. Acute COVID-19 infection Patient does have groundglass opacities noted bilaterally. However, this is difficult to assess in the setting of end-stage renal disease with elevated creatinine. Exact onset is unclear at this time. Patient would not be a candidate for remdesivir given renal function. Were defer to infectious disease on convalescent serum. Patient is on Decadron therapy and this will need to be followed closely as patient does have a history of diabetes mellitus. 2. Troponin elevation Unclear significance. Patient is on 2 L nasal cannula at this time and does have end-stage renal disease. Patient had a heart catheterization last month and no interventions were indicated. Likely not necessary given lack of ST elevations for repeat evaluation. 3. End-stage renal disease/diabetes mellitus type 2/hypertension/hyperlipidemia/hypothyroidism/obesity Complicates care, management, recovery and prognosis. We will need to watch blood sugars closely given Decadron therapy. May require Lantus therapy. Blood pressure appears to be controlled at this time, but patient is on midodrine therapy. May be able to discontinue midodrine if blood pressure remains elevated. Inpatient E&M: 53369 Init Hosp L2
[2020-03-25] MEDS: Epoetin Alfa epbx 10,000 UNITS/ML 6000 UNIT IV (16:18)
[2020-03-25 16:21] LABS: Fibrinogen 603 mg/dl (203-444)
[2020-03-25 16:37] LABS: D-Dimer Quantitative (DVT/PE) 1.96 FEU/ug/m (0.27-0.49)
--- NOTE | 2020-03-25 16:41 | DIALYSIS ---
3 HOUR DIALYSIS complete. Tolerated. well. Net UF 2000ML. See dialysis flowsheet.
[2020-03-25 17:26] LABS: Bedside Glucose 154 mg/dL (70-110)
[2020-03-25] MEDS: Tamsulosin HCl 0.4 MG Capsule PO (23:39)
[2020-03-25] MEDS: Metoprolol Tartrate 25 MG Tablet 12.5 MG PO (23:39)
[2020-03-25] MEDS: Latanoprost 0.005% 1 Bottle 1 DRP EACH EYE (23:40)
[2020-03-25] MEDS: 0.9% Saline Lock 10 ML Syringe IV (23:53)
[2020-03-26] VITALS (13 sets, daily range): BP systolic 117–155; BP diastolic 51–79; PULSE 60–66; RESP 20–24; TEMP 35.6–36.4; O2SAT 88–96
[2020-03-26 03:31] LABS: Bedside Glucose 186 mg/dL (70-110)
[2020-03-26 06:12] LABS: Absolute Lymphocyte Count 0.35 X10^3/uL (0.83-4.51); Absolute Neutrophil Count 3.6 X10^3/uL (2.0-7.7); Hematocrit 28.7 % (40-54); Hemoglobin 9.1 g/dL (13.0-16.5); Lymphocyte # 0.35 X10^3/ul (4.0); Lymphocyte % 8.1 % (19-41); Mean Corp Hgb Conc 31.7 g/dL (32-36); Mean Corpuscular Hgb 31.1 pg (27.0-32.0); Mean Platelet Vol. 10.5 fl (6.2-12.0); Monocyte# 0.26 X10^3/uL; NRBC Flagged by Analyzer 0.9 % (0-5); Neutrophil # 3.64 X10^3/uL (2.7-7.7); Neutrophil % 84.7 % (47-70); POSITIVE COUNT YES; POSITIVE DIFFERENTIAL YES; Platelet Count 172 K/mm3 (150-450); RBC Distribution Width CV 15.9 % (11.6-14.6); RBC Distribution Width SD 56.6 fl (35.1-43.9); Red Blood Count 2.93 M/mm3 (4.6-6.2); White Blood Count 4.3 K/mm3 (4.4-11.0)
[2020-03-26 06:28] LABS: Differential Indicated SCAN CRITERIA MET
[2020-03-26 06:36] LABS: Bedside Glucose 140 mg/dL (70-110)
[2020-03-26 06:40] LABS: Differential Comment SCANNED; Platelet Estimate ADEQUATE (ADEQ)
[2020-03-26 06:41] LABS: Platelet Morphology CLUMPED
[2020-03-26 06:59] LABS: ALB/GLOB Ratio 0.6 RATIO (0.9-2.4); AST(SGOT) 41 U/L (15-37); Alanine Aminotransfer ALT/SGPT 30 U/L (16-61); Albumin, Serum 2.3 g/dL (3.2-5.0); Alkaline Phosphatase 64 U/L (45-117); Anion Gap 11 (5-15); BUN 54 mg/dL (7-18); BUN/Creat Ratio 7.5 RATIO (10-20); Calcium,Total 8.2 mg/dL (8.5-10.1); Chloride 99 mmol/L (98-107); EST Glomerular Filtration Rate 8 mL/min (>60); Est Glom Filt Rate - Afr Amer 10 mL/min (>60); Estimated Creatinine Clearance 8.05 ml/min; Globulin 3.9 g/dL (2.2-4.2); Glucose 138 mg/dL (74-106); Potassium 4.8 mmol/L (3.5-5.1); Protein, Total 6.2 g/dL (6.4-8.2); Sodium Level 131 mmol/L (136-145)
--- NOTE | 2020-03-26 07:19 | PCM.PN.HOSP ---
Patient Problems: Active and Suspected Problems (Last Reviewed 03/25/20 @ 02:[address] Priyank Tate MD) Pneumonia (Acute) Debility (Acute) COVID-19 (Acute) SARS (severe acute respiratory syndrome) (Acute) Subjective: Patient with no acute events overnight per self and per nursing report however he notes that he still has some loose stools and is extremely fatigued. He has been transitioned to room air but with any movement in the bed does appear to have increased work of breathing and some accessory muscle usage ongoing tachypnea. He has had no fevers although his oral temperatures have been hypothermic. 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 Patient denies fevers, chills, nausea, emesis, abdominal pain, chest pain. Objective: Physical Examination: General: awake, alert, oriented x 3 and cooperative, seated upright in the [facility] bed, no acute distress, fatigued and ill-appearing. Skin: normal color, turgor, no icterus, cyanosis. HEENT: AT/NC, EOMI, PERRLA, mildly improved MMM. Lungs: Continued diminished breath sounds, greater bases, right greater than left, mildly increased effort, increased work of breathing with movement in the bed, no obvious rales, rhonchi or wheezing. Heart: Bradycardic with regular rhythm; no gallop, rub audible. Abdomen: soft, obese, NTTP, ND, continued hyperactive BS. Extremities: no cyanosis, clubbing, or edema, + thrill AVF. Neurological: patient awake, alert, oriented as noted; cognitive function peers baseline intact; pupils equally reactive to light and accomodation; cranial nerves II-XII grossly normal, moving all 4 extremities, fatigued appearing, strength remains moderately to severely global decrease secondary to acute presentation. Psychiatric: affect remains flat, fatigued, no acute evidence of depressive or anxiety feelings. Vitals/I&O's: Vital Signs Temp Pulse Resp BP Pulse Ox 96.3 F L 61 20 H 154/72 H 94 03/26/20 04:05 03/26/20 04:05 03/26/20 04:05 03/26/20 04:05 03/26/20 04:05 Oxygen Flow Rate (L/min) 2 Oxygen Delivery Method Room Air Weight: 246 lb 4.101 oz Body Mass Index (BMI) 37.4 Finger Stick Blood Glucose 124 Intake and Output for Last 24 Hours 03/24/20 03/25/20 03/26/20 23:59 23:59 23:59 Intake Total 50 / 50 595 / 695 150 / 150 Output Total 160 / 160 Balance 50 / 50 435 / 535 150 / 150 Laboratory Results 03/24/20 21:24: Diff Path Review Reviewed 03/25/20 05:46: Diff Path Review Reviewed 03/25/20 05:46: Magnesium 2.4 03/25/20 05:46: Total Creatine Kinase 133, C-React Prot Ext Range 64.60 H 03/25/20 05:46: B-Natriuretic Peptide 1899.0 H 03/25/20 06:24: POC Glucose 177 H 03/25/20 10:20: Blood Type A POSITIVE 03/25/20 12:09: POC Glucose 194 H 03/25/20 12:35: Urine Color Yellow, Urine Clarity Sl. Cloudy, Urine pH 6.0, Ur Specific [place] 1.010, Urine Protein 30 H, Urine Glucose (UA) Normal, Urine Ketones Negative, Urine Occult Blood 25 H, Urine Nitrite Negative, Urine Bilirubin 1 H, Urine Urobilinogen Normal, Ur Leukocyte Esterase 100 H, Urine RBC 0 SEEN, Urine WBC 0-5 SEEN, Ur Squamous Epith Cells 0-5 SEEN, Urine Bacteria RARE, Urine Mucus 0 SEEN 03/25/20 15:15: PT 13.0, INR 1.0, Fibrinogen 603 H, D-Dimer Quant (PE/DVT) 1.96 H* 03/25/20 15:15: Troponin I 0.086 H 03/25/20 16:10: POC Glucose 154 H 03/25/20 18:15: Troponin I 0.079 H 03/25/20 21:20: Troponin I 0.067 H 03/25/20 23:45: POC Glucose 186 H 03/26/20 06:02: WBC 4.3 L, RBC 2.93 L, Hgb 9.1 L, Hct 28.7 L, MCV 98.0 H, MCH 31.1, MCHC 31.7 L, RDW Std Deviation 56.6 H, RDW Coeff of Renan 15.9 H, Plt Count 172, MPV 10.5, Immature Gran % (Auto) 1.200 H, Neut % (Auto) 84.7 H, Lymph % (Auto) 8.1 L, [place] % (Auto) 6.0, Eos % (Auto) 0.0, Baso % (Auto) 0.0, Absolute Neuts (auto) 3.6, Absolute Lymphs (auto) 0.35 L, Nucleated RBC % 0.9, Differential Comment SCANNED, Diff Path Review May foll, Platelet Estimate ADEQUATE, Plt Morphology Comment CLUMPED 03/26/20 06:02: Sodium 131 L, Potassium 4.8, Chloride 99, Carbon Dioxide 21.0, Anion Gap 11, BUN 54 H, Creatinine 7.20 H, Estim Creat Clear Calc 8.05, Est GFR (MDRD) Af Amer 10 L, Est GFR (MDRD) Non-Af 8 L, BUN/Creatinine Ratio 7.5 L, Glucose 138 H, Calcium 8.2 L, Total Bilirubin 0.50, AST 41 H, ALT 30, Alkaline Phosphatase 64, Total Protein 6.2 L, Albumin 2.3 L, Globulin 3.9, Albumin/Globulin Ratio 0.6 L 03/26/20 06:26: POC Glucose 140 H Current Medications Acetaminophen (Acetaminophen 325 Mg Tablet) 650 mg PO Q6H PRN PRN PRN Reason: Pain Score 1-10/Temp > 100.7 F Albuterol Sulfate (Albuterol Ih 8.5 Gm (Proair) Inhaler (200 Puffs)) 2 puff INHALATION Q4H PRN PRN PRN Reason: SOB/WHEEZING Aspirin (Aspirin E.C. 81 Mg Tablet) 81 mg PO DAILY@0800 [facility] Last Admin: 03/25/20 09:31 Dose: 81 mg Documented by: Calamine/Phenol (Menthol/Lanolin/Calamine/Znox 113 Gm Tube) 1 applic TOPICAL BID [facility]; Protocol Last Admin: 03/25/20 23:40 Dose: 1 applicatio Documented by: Calcium Acetate (Calcium Acetate 667 Mg Capsule) 1,334 mg PO BREAKFAST [facility] Last Admin: 03/25/20 09:32 Dose: 1,334 mg Documented by: Clopidogrel Bisulfate (Clopidogrel Bisulfate 75 Mg Tablet) 75 mg PO DAILY [facility] Last Admin: 03/25/20 09:36 Dose: 75 mg Documented by: Dexamethasone (Dexamethasone 4 Mg Tablet) 6 mg PO DAILY [facility] Last Admin: 03/25/20 09:33 Dose: 6 mg Documented by: Dextrose (Dextrose 50%-Water 25 Gm/50 Ml Disp.Syrin) 0 gm IV X1 PRN; Protocol PRN Reason: Hypoglycemia Enoxaparin Sodium (Enoxaparin 30 Mg/0.3 Ml Syringe) 30 mg SC DAILY [facility] Last Admin: 03/25/20 09:33 Dose: 30 mg Documented by: Glucagon (Glucagon 1 Mg/Ml Syringe) 1 mg IM .X1 PRN PRN Reason: Hypoglycemia Guaifenesin (Guaifenesin 10 Ml Udc (200mg/10ml)) 10 ml PO Q4H PRN PRN PRN Reason: COUGH Sodium Chloride () 250 mls @ 15 mls/hr IV .[id number] PRN PRN Reason: Saline Flush Insulin Glargine (Insulin Glargine 100 Units/Ml Pen) 10 units SC QHS [facility] Last Admin: 03/25/20 23:47 Dose: 10 u Documented by: Insulin Human Lispro (Insulin Lispro 100 Unit/Ml Insuln.Pen) 0 unit SC ACHS [facility]; Protocol Last Admin: 03/26/20 06:27 Dose: Not Given Documented by: Latanoprost (Latanoprost 0.005% 1 Bottle) 1 drop EACH EYE QHS [facility] Last Admin: 03/25/20 23:40 Dose: 1 drop Documented by: Levothyroxine Sodium (Levothyroxine 175 Mcg Tablet) 175 mcg PO DAILY [facility] Last Admin: 03/25/20 09:34 Dose: 175 mcg Documented by: Loperamide HCl (Loperamide 2 Mg Capsule) 2 mg PO Q2H PRN PRN Reason: DIARRHEA/LOOSE STOOLS Last Admin: 03/25/20 12:57 Dose: 2 mg Documented by: Melatonin (Melatonin 3 Mg Tablet) 3 mg PO QHS PRN PRN PRN Reason: INSOMNIA Metoprolol Tartrate (Metoprolol Tartrate 25 Mg Tablet) 12.5 mg PO BID [facility] Last Admin: 03/25/20 23:39 Dose: 12.5 mg Documented by: Midodrine (Midodrine Hcl 5 Mg Tablet) 5 mg PO TIDCM [facility] Last Admin: 03/25/20 17:37 Dose: Not Given Documented by: Multivit/Ca Carb/B Cmplx/FA/Prenat (Folic Acid/Vitamin B Comp W-C 1 Capsule) 1 capsule PO DAILY [facility] Last Admin: 03/25/20 09:34 Dose: 1 capsule Documented by: Ondansetron HCl (Ondansetron 4 Mg/2 Ml Vial) 4 mg IV Q8H PRN PRN PRN Reason: NAUSEA/VOMITING Pravastatin Sodium (Pravastatin 80 Mg Tablet) 80 mg PO DAILY [facility] Last Admin: 03/25/20 09:34 Dose: 80 mg Documented by: Sodium Chloride (0.9% Saline Lock 10 Ml Syringe) 10 - 40 ml IV UD PRN PRN Reason: SALINE FLUSH Last Admin: 03/25/20 23:53 Dose: 10 ml Documented by: Tamsulosin HCl (Tamsulosin Hcl 0.4 Mg Capsule) 0.4 mg PO QHS [facility] Last Admin: 03/25/20 23:39 Dose: 0.4 mg Documented by: STROKE Vital Signs/Narrative: Vital Signs Temp Pulse Resp BP Pulse Ox 03/26/20 04:05 96.3 F L 61 20 H 154/72 H 94 Medical Necessity - Tobacco Use Smoking Status: Never smoker Tobacco Use: Non-smoker Assessment/Plan All Active Problems (Last Reviewed 03/25/20 @ 02:[address] 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 Acute hypoxia with dyspnea, Cough, Fever, diarrhea with Bilateral Pneumonia secondary to Acute Viral Syndrome, COVID-19: Admitted to medical surgical floor on telemetry, saturations improved with oxygen supplementation to low 90s, continued on IV Decadron continued close monitoring of patient blood sugars given underlying diabetes, CTPA with patchy nodular groundglass infiltrates throughout both lungs with the midlung and lung base prominence consistent with Covid pneumonia with a small bilateral pleural effusions, right greater than left, no evidence of pulmonary emboli, pulmonary and ID consulted, not candidate for remdesivir given renal disease, may consider plasma, noted enzyme elevation with recent intervention finding improved with 03/25/2020 last cardiac enzyme of trend 0.067, recent echo as noted, continue supportive care, plan to repeat 03/27/2020 HD treatment. 2. Indeterminate cardiac enzyme: Suspected secondary to #1, hypoxia associated, troponin 0.124, maintain on cardiac telemetry, will cycle cardiac enzymes, magnesium level 2.4. Recent 02/19/2020 echocardiogram with normal LV size, normal LV systolic function, EF 60% with moderate concentric LVH noted. Recent 02/19/2020 cardiac catheterization with severe coronary artery disease with calcification especially involving the circumflex arterial system involving the mid circumflex as well as the first obtuse marginal branch with noted extensive left to right collaterals filling almost the entire right coronary system with moderate LAD disease noted with transfer to tertiary facility for consideration CABG with eventually PCI performed. Continued on aspirin, Plavix, metoprolol, statin therapy. Cardiac enzyme trending with initial 0.124-> 0.086-> 0.079-> 0.067. 3. ESRD: Continue patient graphite pan drier tender consultation, dialysis Tuesday, , Tuesday normal regimen with HD 03/25/2020 with removal of 2 L with planned repeat 03/27/2020 per discussion with patient's graphite pan drier tender. 4. AOCD: Admission hemoglobin 8.6, similar to baseline, anemia of chronic disease associated with end-stage renal disease, defer treatments to nephrology, consulted. 03/26/2020 hemoglobin 9.1. 5. History of 2nd AVB: That is post pacemaker placement, patient with recent interrogation during prior presentation without marked finding. 6. Diabetes mellitus type II: Hold oral home regimen, continue home insulin regimen alterations as needed given usage of steroids as would expect elevations, ADA diet, accu checks w/ ISS. 7. Hypertension: Continue home regimen including metoprolol with hold parameters especially given concurrent usage of midodrine with dialysis, PRN hydralazine. 8. Hyperlipidemia: Continue home statin regimen. 9. Hypothyroidism: Continue home synthroid regimen. 10. DVT prophylaxis: SCDs, Lovenox. 11. Code Status: DNR-CCA, no intubation. Inpatient E&M: 58368 Subs Hosp L2
[2020-03-26] MEDS: Aspirin E.C. 81 MG Tablet PO (09:13)
[2020-03-26] MEDS: Calcium Acetate 667 MG Capsule 1334 MG PO (09:13)
[2020-03-26] MEDS: Menthol/Lanolin/Calamine/Znox 113 GM Tube 1 APPLIC TOPICAL ×2 (09:14→20:18)
[2020-03-26] MEDS: Midodrine HCl 5 MG Tablet PO ×3 (09:14→17:22)
[2020-03-26] MEDS: dexAMETHasone 4 MG Tablet 6 MG PO (09:14)
[2020-03-26] MEDS: Metoprolol Tartrate 25 MG Tablet 12.5 MG PO ×2 (09:15→20:17)
[2020-03-26] MEDS: Pravastatin 80 MG Tablet PO (09:16)
[2020-03-26] MEDS: Folic Acid/Vitamin B Comp W-C 1 Capsule 1 CAP PO (09:16)
[2020-03-26] MEDS: Clopidogrel Bisulfate 75 MG Tablet PO (09:16)
[2020-03-26] MEDS: Levothyroxine 175 MCG Tablet PO (09:17)
--- NOTE | 2020-03-26 09:36 | PN.RENAL_ITS ---
Patient Problems: Active and Suspected Problems (Last Reviewed 03/25/20 @ 02:[address] Priyank Tate MD) Pneumonia (Acute) Debility (Acute) COVID-19 (Acute) SARS (severe acute respiratory syndrome) (Acute) Subjective: on RA had 2 l net UF yesterday no acute events per RN - Physical Exam Vitals/I&O's: Vital Signs Temp Pulse Resp BP Pulse Ox 96.0 F L 60 24 H 155/79 H 95 03/26/20 09:09 03/26/20 09:15 03/26/20 09:09 03/26/20 09:15 03/26/20 09:09 Oxygen Flow Rate (L/min) 2 Oxygen Delivery Method Room Air Weight: 111.7 kg Body Mass Index (BMI) 37.4 Finger Stick Blood Glucose 124 Intake and Output for Last 24 Hours 03/24/20 03/25/20 03/26/20 23:59 23:59 23:59 Intake Total 50 / 50 595 / 695 150 / 150 Output Total 160 / 160 Balance 50 / 50 435 / 535 150 / 150 Oral: - - PE deferred to preserve PPE and prevent further transmission of covid- 19 Laboratory Results 03/24/20 21:24: Diff Path Review Reviewed 03/25/20 05:46: Diff Path Review Reviewed 03/25/20 05:46: Total Creatine Kinase 133, C-React Prot Ext Range 64.60 H 03/25/20 05:46: B-Natriuretic Peptide 1899.0 H 03/25/20 06:24: POC Glucose 177 H 03/25/20 10:20: Blood Type A POSITIVE 03/25/20 12:09: POC Glucose 194 H 03/25/20 12:35: Urine Color Yellow, Urine Clarity Sl. Cloudy, Urine pH 6.0, Ur Specific [place] 1.010, Urine Protein 30 H, Urine Glucose (UA) Normal, Urine Ketones Negative, Urine Occult Blood 25 H, Urine Nitrite Negative, Urine Bilirubin 1 H, Urine Urobilinogen Normal, Ur Leukocyte Esterase 100 H, Urine RBC 0 SEEN, Urine WBC 0-5 SEEN, Ur Squamous Epith Cells 0-5 SEEN, Urine Bacteria RARE, Urine Mucus 0 SEEN 03/25/20 15:15: PT 13.0, INR 1.0, Fibrinogen 603 H, D-Dimer Quant (PE/DVT) 1.96 H* 03/25/20 15:15: Troponin I 0.086 H 03/25/20 16:10: POC Glucose 154 H 03/25/20 18:15: Troponin I 0.079 H 03/25/20 21:20: Troponin I 0.067 H 03/25/20 23:45: POC Glucose 186 H 03/26/20 06:02: WBC 4.3 L, RBC 2.93 L, Hgb 9.1 L, Hct 28.7 L, MCV 98.0 H, MCH 31.1, MCHC 31.7 L, RDW Std Deviation 56.6 H, RDW Coeff of Renan 15.9 H, Plt Count 172, MPV 10.5, Immature Gran % (Auto) 1.200 H, Neut % (Auto) 84.7 H, Lymph % (Auto) 8.1 L, [place] % (Auto) 6.0, Eos % (Auto) 0.0, Baso % (Auto) 0.0, Absolute Neuts (auto) 3.6, Absolute Lymphs (auto) 0.35 L, Nucleated RBC % 0.9, Differential Comment SCANNED, Diff Path Review May foll, Platelet Estimate ADEQUATE, Plt Morphology Comment CLUMPED 03/26/20 06:02: Sodium 131 L, Potassium 4.8, Chloride 99, Carbon Dioxide 21.0, Anion Gap 11, BUN 54 H, Creatinine 7.20 H, Estim Creat Clear Calc 8.05, Est GFR (MDRD) Af Amer 10 L, Est GFR (MDRD) Non-Af 8 L, BUN/Creatinine Ratio 7.5 L, Glucose 138 H, Calcium 8.2 L, Total Bilirubin 0.50, AST 41 H, ALT 30, Alkaline Phosphatase 64, Total Protein 6.2 L, Albumin 2.3 L, Globulin 3.9, Albumin/Globulin Ratio 0.6 L 03/26/20 06:26: POC Glucose 140 H Current Medications Acetaminophen (Acetaminophen 325 Mg Tablet) 650 mg PO Q6H PRN PRN PRN Reason: Pain Score 1-10/Temp > 100.7 F Albuterol Sulfate (Albuterol Ih 8.5 Gm (Proair) Inhaler (200 Puffs)) 2 puff INHALATION Q4H PRN PRN PRN Reason: SOB/WHEEZING Aspirin (Aspirin E.C. 81 Mg Tablet) 81 mg PO DAILY@0800 [facility] Last Admin: 03/26/20 09:13 Dose: 81 mg Documented by: Calamine/Phenol (Menthol/Lanolin/Calamine/Znox 113 Gm Tube) 1 applic TOPICAL BID [facility]; Protocol Last Admin: 03/26/20 09:14 Dose: 1 applicatio Documented by: Calcium Acetate (Calcium Acetate 667 Mg Capsule) 1,334 mg PO BREAKFAST [facility] Last Admin: 03/26/20 09:13 Dose: 1,334 mg Documented by: Clopidogrel Bisulfate (Clopidogrel Bisulfate 75 Mg Tablet) 75 mg PO DAILY [facility] Last Admin: 03/26/20 09:16 Dose: 75 mg Documented by: Dexamethasone (Dexamethasone 4 Mg Tablet) 6 mg PO DAILY [facility] Last Admin: 03/26/20 09:14 Dose: 6 mg Documented by: Dextrose (Dextrose 50%-Water 25 Gm/50 Ml Disp.Syrin) 0 gm IV X1 PRN; Protocol PRN Reason: Hypoglycemia Enoxaparin Sodium (Enoxaparin 30 Mg/0.3 Ml Syringe) 30 mg SC DAILY [facility] Last Admin: 03/25/20 09:33 Dose: 30 mg Documented by: Glucagon (Glucagon 1 Mg/Ml Syringe) 1 mg IM .X1 PRN PRN Reason: Hypoglycemia Guaifenesin (Guaifenesin 10 Ml Udc (200mg/10ml)) 10 ml PO Q4H PRN PRN PRN Reason: COUGH Sodium Chloride () 250 mls @ 15 mls/hr IV .[id number] PRN PRN Reason: Saline Flush Insulin Glargine (Insulin Glargine 100 Units/Ml Pen) 10 units SC QHS [facility] Last Admin: 03/25/20 23:47 Dose: 10 u Documented by: Insulin Human Lispro (Insulin Lispro 100 Unit/Ml Insuln.Pen) 0 unit SC ACHS [facility]; Protocol Last Admin: 03/26/20 06:27 Dose: Not Given Documented by: Latanoprost (Latanoprost 0.005% 1 Bottle) 1 drop EACH EYE QHS [facility] Last Admin: 03/25/20 23:40 Dose: 1 drop Documented by: Levothyroxine Sodium (Levothyroxine 175 Mcg Tablet) 175 mcg PO DAILY [facility] Last Admin: 03/26/20 09:17 Dose: 175 mcg Documented by: Loperamide HCl (Loperamide 2 Mg Capsule) 2 mg PO Q2H PRN PRN Reason: DIARRHEA/LOOSE STOOLS Last Admin: 03/25/20 12:57 Dose: 2 mg Documented by: Melatonin (Melatonin 3 Mg Tablet) 3 mg PO QHS PRN PRN PRN Reason: INSOMNIA Metoprolol Tartrate (Metoprolol Tartrate 25 Mg Tablet) 12.5 mg PO BID [facility] Last Admin: 03/26/20 09:15 Dose: 12.5 mg Documented by: Midodrine (Midodrine Hcl 5 Mg Tablet) 5 mg PO TIDCM [facility] Last Admin: 03/26/20 09:14 Dose: 5 mg Documented by: Multivit/Ca Carb/B Cmplx/FA/Prenat (Folic Acid/Vitamin B Comp W-C 1 Capsule) 1 capsule PO DAILY [facility] Last Admin: 03/26/20 09:16 Dose: 1 capsule Documented by: Ondansetron HCl (Ondansetron 4 Mg/2 Ml Vial) 4 mg IV Q8H PRN PRN PRN Reason: NAUSEA/VOMITING Pravastatin Sodium (Pravastatin 80 Mg Tablet) 80 mg PO DAILY [facility] Last Admin: 03/26/20 09:16 Dose: 80 mg Documented by: Sodium Chloride (0.9% Saline Lock 10 Ml Syringe) 10 - 40 ml IV UD PRN PRN Reason: SALINE FLUSH Last Admin: 03/25/20 23:53 Dose: 10 ml Documented by: Tamsulosin HCl (Tamsulosin Hcl 0.4 Mg Capsule) 0.4 mg PO QHS [facility] Last Admin: 03/25/20 23:39 Dose: 0.4 mg Documented by: Medical Necessity - Tobacco Use Smoking Status: Never smoker Tobacco Use: Non-smoker Assessment/Plan All Active Problems (Last Reviewed 03/25/20 @ 02:[address] Priyank Tate MD) Pneumonia (Acute) Debility (Acute) COVID-19 (Acute) SARS (severe acute respiratory syndrome) (Acute) Nephrolithiasis (Resolved) ESRD continue TTS schedule.For HD tomorrow Anemia JOSE with dialysis CKD MBD continue binders COVID-19 mgmt per ID.
[2020-03-26] MEDS: Enoxaparin 30 MG/0.3 ML Syringe SC (10:16)
[2020-03-26] MEDS: Insulin Lispro 100 UNIT/ML INSULN.PEN SC ×3 (11:59→20:27)
[2020-03-26 12:11] LABS: Bedside Glucose 218 mg/dL (70-110)
[2020-03-26 12:55] LABS: Pathologist Review Reviewed
--- NOTE | 2020-03-26 14:19 | PN_ITS ---
Patient Problems: Active and Suspected Problems (Last Reviewed 03/25/20 @ 02:[address] Priyank Tate MD) Pneumonia (Acute) Debility (Acute) COVID-19 (Acute) SARS (severe acute respiratory syndrome) (Acute) Subjective: Patient did well overnight. Patient has been able to be taken off of supplemental oxygen, but continues to report significant weakness. No chest pain is been reported. Patient was able to tolerate dialysis well yesterday. - Physical Exam Vitals/I&O's: Vital Signs Temp Pulse Resp BP Pulse Ox 35.6 C L 60 24 H 155/79 H 95 03/26/20 09:09 03/26/20 09:15 03/26/20 09:09 03/26/20 09:15 03/26/20 09:09 Oxygen Flow Rate (L/min) 2 Oxygen Delivery Method Room Air Weight: 111.7 kg Body Mass Index (BMI) 37.4 Finger Stick Blood Glucose 124 Intake and Output for Last 24 Hours 03/24/20 03/25/20 03/26/20 23:59 23:59 23:59 Intake Total 50 / 50 595 / 695 150 / 150 Output Total 160 / 160 Balance 50 / 50 435 / 535 150 / 150 General: Alert, Oriented x3, Cooperative, No apparent distress, Well developed, Well nourished, - - Obese. Speaking in full sentences. HEENT: Atraumatic, PERRLA, EOMI, Normocephalic, - - Right scleral injection without icterus Oral: Moist Mucosa, No Gingival or Mucosal Lesions/ Ulcerations, - - Crowded posterior pharynx Neck: Supple, No JVD, No Nodes, Trachea Midline Lungs: No rhonchi, No wheeze, No rales, Diminished, - - Symmetric expansion. No dullness to percussion. Cardiovascular: Regular rate, Regular Rhythm, Normal S1, Normal S2, No murmurs, No rub noted, No Gallop Abdomen: Bowel Sounds Present, Soft, Non Tender, Non-Distended, Obese Extremities: No clubbing, No cyanosis, Edema Skin: - - Some ecchymosis around dialysis site Musculoskeletal: No Tenderness to Palpation of Joints or Extremities Lymphatic: No Cervical, Supraclavicular, or Inguinal Adenopathy Neurological: Cranial nerves II-XII grossly intact, Neuro grossly intact, Motor Exam 5/5 strength throughout Psych/Mental Status: Alert and oriented to time, place, person, mood and affect Laboratory Results 03/25/20 05:46: Total Creatine Kinase 133, C-React Prot Ext Range 64.60 H 03/25/20 05:46: B-Natriuretic Peptide 1899.0 H 03/25/20 15:15: PT 13.0, INR 1.0, Fibrinogen 603 H, D-Dimer Quant (PE/DVT) 1.96 H* 03/25/20 15:15: Troponin I 0.086 H 03/25/20 16:10: POC Glucose 154 H 03/25/20 18:15: Troponin I 0.079 H 03/25/20 21:20: Troponin I 0.067 H 03/25/20 23:45: POC Glucose 186 H 03/26/20 06:02: WBC 4.3 L, RBC 2.93 L, Hgb 9.1 L, Hct 28.7 L, MCV 98.0 H, MCH 31.1, MCHC 31.7 L, RDW Std Deviation 56.6 H, RDW Coeff of Renan 15.9 H, Plt Count 172, MPV 10.5, Immature Gran % (Auto) 1.200 H, Neut % (Auto) 84.7 H, Lymph % (Auto) 8.1 L, [place] % (Auto) 6.0, Eos % (Auto) 0.0, Baso % (Auto) 0.0, Absolute Neuts (auto) 3.6, Absolute Lymphs (auto) 0.35 L, Nucleated RBC % 0.9, Differential Comment SCANNED, Diff Path Review Reviewed, Platelet Estimate ADEQUATE, Plt Morphology Comment CLUMPED 03/26/20 06:02: Sodium 131 L, Potassium 4.8, Chloride 99, Carbon Dioxide 21.0, Anion Gap 11, BUN 54 H, Creatinine 7.20 H, Estim Creat Clear Calc 8.05, Est GFR (MDRD) Af Amer 10 L, Est GFR (MDRD) Non-Af 8 L, BUN/Creatinine Ratio 7.5 L, Glucose 138 H, Calcium 8.2 L, Total Bilirubin 0.50, AST 41 H, ALT 30, Alkaline Phosphatase 64, Total Protein 6.2 L, Albumin 2.3 L, Globulin 3.9, Albumin/Globulin Ratio 0.6 L 03/26/20 06:26: POC Glucose 140 H 03/26/20 11:55: POC Glucose 218 H Current Medications Acetaminophen (Acetaminophen 325 Mg Tablet) 650 mg PO Q6H PRN PRN PRN Reason: Pain Score 1-10/Temp > 100.7 F Albuterol Sulfate (Albuterol Ih 8.5 Gm (Proair) Inhaler (200 Puffs)) 2 puff INHALATION Q4H PRN PRN PRN Reason: SOB/WHEEZING Aspirin (Aspirin E.C. 81 Mg Tablet) 81 mg PO DAILY@0800 [facility] Last Admin: 03/26/20 09:13 Dose: 81 mg Documented by: Calamine/Phenol (Menthol/Lanolin/Calamine/Znox 113 Gm Tube) 1 applic TOPICAL BID [facility]; Protocol Last Admin: 03/26/20 09:14 Dose: 1 applicatio Documented by: Calcium Acetate (Calcium Acetate 667 Mg Capsule) 1,334 mg PO BREAKFAST [facility] [place] Last Admin: 03/26/20 09:13 Dose: 1,334 mg Documented by: Clopidogrel Bisulfate (Clopidogrel Bisulfate 75 Mg Tablet) 75 mg PO DAILY [facility] [place] Last Admin: 03/26/20 09:16 Dose: 75 mg Documented by: Dexamethasone (Dexamethasone 4 Mg Tablet) 6 mg PO DAILY [facility] [place] Last Admin: 03/26/20 09:14 Dose: 6 mg Documented by: Dextrose (Dextrose 50%-Water 25 Gm/50 Ml Disp.Syrin) 0 gm IV X1 PRN; Protocol PRN Reason: Hypoglycemia Enoxaparin Sodium (Enoxaparin 30 Mg/0.3 Ml Syringe) 30 mg SC DAILY [facility] [place] Last Admin: 03/26/20 10:16 Dose: 30 mg Documented by: Glucagon (Glucagon 1 Mg/Ml Syringe) 1 mg IM .X1 PRN PRN Reason: Hypoglycemia Guaifenesin (Guaifenesin 10 Ml Udc (200mg/10ml)) 10 ml PO Q4H PRN PRN PRN Reason: COUGH Sodium Chloride () 250 mls @ 15 mls/hr IV .[id number] PRN PRN Reason: Saline Flush Insulin Glargine (Insulin Glargine 100 Units/Ml Pen) 10 units SC QHS [facility] [place] Last Admin: 03/25/20 23:47 Dose: 10 u Documented by: Insulin Human Lispro (Insulin Lispro 100 Unit/Ml Insuln.Pen) 0 unit SC ACHS [facility]; Protocol Last Admin: 03/26/20 11:59 Dose: 2 units Documented by: Latanoprost (Latanoprost 0.005% 1 Bottle) 1 drop EACH EYE QHS [facility] [place] Last Admin: 03/25/20 23:40 Dose: 1 drop Documented by: Levothyroxine Sodium (Levothyroxine 175 Mcg Tablet) 175 mcg PO DAILY [facility] [place] Last Admin: 03/26/20 09:17 Dose: 175 mcg Documented by: Loperamide HCl (Loperamide 2 Mg Capsule) 2 mg PO Q2H PRN PRN Reason: DIARRHEA/LOOSE STOOLS Last Admin: 03/25/20 12:57 Dose: 2 mg Documented by: Melatonin (Melatonin 3 Mg Tablet) 3 mg PO QHS PRN PRN PRN Reason: INSOMNIA Metoprolol Tartrate (Metoprolol Tartrate 25 Mg Tablet) 12.5 mg PO BID [facility] [place] Last Admin: 03/26/20 09:15 Dose: 12.5 mg Documented by: Midodrine (Midodrine Hcl 5 Mg Tablet) 5 mg PO TIDCM [facility] [place] Last Admin: 03/26/20 12:00 Dose: 5 mg Documented by: Multivit/Ca Carb/B Cmplx/FA/Prenat (Folic Acid/Vitamin B Comp W-C 1 Capsule) 1 capsule PO DAILY [facility] [place] Last Admin: 03/26/20 09:16 Dose: 1 capsule Documented by: Ondansetron HCl (Ondansetron 4 Mg/2 Ml Vial) 4 mg IV Q8H PRN PRN PRN Reason: NAUSEA/VOMITING Pravastatin Sodium (Pravastatin 80 Mg Tablet) 80 mg PO DAILY [facility] [place] Last Admin: 03/26/20 09:16 Dose: 80 mg Documented by: Sodium Chloride (0.9% Saline Lock 10 Ml Syringe) 10 - 40 ml IV UD PRN PRN Reason: SALINE FLUSH Last Admin: 03/25/20 23:53 Dose: 10 ml Documented by: Tamsulosin HCl (Tamsulosin Hcl 0.4 Mg Capsule) 0.4 mg PO QHS [facility] [place] Last Admin: 03/25/20 23:39 Dose: 0.4 mg Documented by: Medical Necessity - Tobacco Use Smoking Status: Never smoker Tobacco Use: Non-smoker Assessment/Plan All Active Problems (Last Reviewed 03/25/20 @ 02:[address] Priyank Tate MD) Pneumonia (Acute) Debility (Acute) COVID-19 (Acute) SARS (severe acute respiratory syndrome) (Acute) Nephrolithiasis (Resolved) RECOMMENDATIONS: 1. Monitor for complications of Decadron 2. Continue with dialysis per nephrology 3. Monitor for hypotension given history of end-stage renal 4. Walking oximetry prior to discharge 5. Hemodynamically stable on room air. Will sign off from a critical care/pulmonary perspective IMPRESSIONS: 1. Acute COVID-19 infection Patient does have groundglass opacities noted bilaterally. However, this is difficult to assess in the setting of end-stage renal disease with elevated creatinine. Exact onset is unclear at this time. Patient would not be a candidate for remdesivir given renal function. Patient appears to be tolerating current therapy well. 2. Troponin elevation Unclear significance. Patient is on room air at this time and does have end-stage renal disease. Patient had a heart catheterization last month and no interventions were indicated. Likely not necessary given lack of ST elevations for repeat evaluation. 3. End-stage renal disease/diabetes mellitus type 2/hypertension/hyperlipidemia/hypothyroidism/obesity Complicates care, management, recovery and prognosis. We will need to watch blood sugars closely given Decadron therapy. May require Lantus therapy. Blood pressure appears to be controlled at this time, but patient is on midodrine therapy. May be able to discontinue midodrine if blood pressure remains elevated. Inpatient E&M: 09935 Subs Hosp L2
--- NOTE | 2020-03-26 16:13 | PCM.PN.ID ---
Patient Problems: Active and Suspected Problems (Last Reviewed 03/25/20 @ 02:[address] Priyank Tate MD) Pneumonia (Acute) Debility (Acute) COVID-19 (Acute) SARS (severe acute respiratory syndrome) (Acute) Subjective: Not feeling any better, remains on RA, no fever - Physical Exam Vitals/I&O's: Vital Signs Temp Pulse Resp BP Pulse Ox 97.6 F L 65 24 H 117/51 L 96 03/26/20 14:26 03/26/20 15:25 03/26/20 14:26 03/26/20 14:26 03/26/20 14:26 Oxygen Flow Rate (L/min) 2 Oxygen Delivery Method Room Air Weight: 111.7 kg Body Mass Index (BMI) 37.4 Finger Stick Blood Glucose 124 Intake and Output for Last 24 Hours 03/24/20 03/25/20 03/26/20 23:59 23:59 23:59 Intake Total 50 / 50 595 / 695 150 / 150 Output Total 160 / 160 Balance 50 / 50 435 / 535 150 / 150 General: Alert, Cooperative, No apparent distress Lungs: Diminished Cardiovascular: Regular rate, Regular Rhythm Abdomen: Soft, Non Tender, Non-Distended Skin: No rashes Laboratory Results 03/25/20 15:15: PT 13.0, INR 1.0, Fibrinogen 603 H, D-Dimer Quant (PE/DVT) 1.96 H* 03/25/20 15:15: Troponin I 0.086 H 03/25/20 16:10: POC Glucose 154 H 03/25/20 18:15: Troponin I 0.079 H 03/25/20 21:20: Troponin I 0.067 H 03/25/20 23:45: POC Glucose 186 H 03/26/20 06:02: WBC 4.3 L, RBC 2.93 L, Hgb 9.1 L, Hct 28.7 L, MCV 98.0 H, MCH 31.1, MCHC 31.7 L, RDW Std Deviation 56.6 H, RDW Coeff of Renan 15.9 H, Plt Count 172, MPV 10.5, Immature Gran % (Auto) 1.200 H, Neut % (Auto) 84.7 H, Lymph % (Auto) 8.1 L, [place] % (Auto) 6.0, Eos % (Auto) 0.0, Baso % (Auto) 0.0, Absolute Neuts (auto) 3.6, Absolute Lymphs (auto) 0.35 L, Nucleated RBC % 0.9, Differential Comment SCANNED, Diff Path Review Reviewed, Platelet Estimate ADEQUATE, Plt Morphology Comment CLUMPED 03/26/20 06:02: Sodium 131 L, Potassium 4.8, Chloride 99, Carbon Dioxide 21.0, Anion Gap 11, BUN 54 H, Creatinine 7.20 H, Estim Creat Clear Calc 8.05, Est GFR (MDRD) Af Amer 10 L, Est GFR (MDRD) Non-Af 8 L, BUN/Creatinine Ratio 7.5 L, Glucose 138 H, Calcium 8.2 L, Total Bilirubin 0.50, AST 41 H, ALT 30, Alkaline Phosphatase 64, Total Protein 6.2 L, Albumin 2.3 L, Globulin 3.9, Albumin/Globulin Ratio 0.6 L 03/26/20 06:26: POC Glucose 140 H 03/26/20 11:55: POC Glucose 218 H Current Medications Acetaminophen (Acetaminophen 325 Mg Tablet) 650 mg PO Q6H PRN PRN PRN Reason: Pain Score 1-10/Temp > 100.7 F Albuterol Sulfate (Albuterol Ih 8.5 Gm (Proair) Inhaler (200 Puffs)) 2 puff INHALATION Q4H PRN PRN PRN Reason: SOB/WHEEZING Aspirin (Aspirin E.C. 81 Mg Tablet) 81 mg PO DAILY@0800 [facility] Last Admin: 03/26/20 09:13 Dose: 81 mg Documented by: Calamine/Phenol (Menthol/Lanolin/Calamine/Znox 113 Gm Tube) 1 applic TOPICAL BID [facility]; Protocol Last Admin: 03/26/20 09:14 Dose: 1 applicatio Documented by: Calcium Acetate (Calcium Acetate 667 Mg Capsule) 1,334 mg PO BREAKFAST [facility] Last Admin: 03/26/20 09:13 Dose: 1,334 mg Documented by: Clopidogrel Bisulfate (Clopidogrel Bisulfate 75 Mg Tablet) 75 mg PO DAILY [facility] Last Admin: 03/26/20 09:16 Dose: 75 mg Documented by: Dexamethasone (Dexamethasone 4 Mg Tablet) 6 mg PO DAILY [facility] Last Admin: 03/26/20 09:14 Dose: 6 mg Documented by: Dextrose (Dextrose 50%-Water 25 Gm/50 Ml Disp.Syrin) 0 gm IV X1 PRN; Protocol PRN Reason: Hypoglycemia Enoxaparin Sodium (Enoxaparin 30 Mg/0.3 Ml Syringe) 30 mg SC DAILY [facility] Last Admin: 03/26/20 10:16 Dose: 30 mg Documented by: Glucagon (Glucagon 1 Mg/Ml Syringe) 1 mg IM .X1 PRN PRN Reason: Hypoglycemia Guaifenesin (Guaifenesin 10 Ml Udc (200mg/10ml)) 10 ml PO Q4H PRN PRN PRN Reason: COUGH Sodium Chloride () 250 mls @ 15 mls/hr IV .[id number] PRN PRN Reason: Saline Flush Insulin Glargine (Insulin Glargine 100 Units/Ml Pen) 10 units SC QHS [facility] Last Admin: 03/25/20 23:47 Dose: 10 u Documented by: Insulin Human Lispro (Insulin Lispro 100 Unit/Ml Insuln.Pen) 0 unit SC ACHS [facility]; Protocol Last Admin: 03/26/20 11:59 Dose: 2 units Documented by: Latanoprost (Latanoprost 0.005% 1 Bottle) 1 drop EACH EYE QHS [facility] Last Admin: 03/25/20 23:40 Dose: 1 drop Documented by: Levothyroxine Sodium (Levothyroxine 175 Mcg Tablet) 175 mcg PO DAILY [facility] Last Admin: 03/26/20 09:17 Dose: 175 mcg Documented by: Loperamide HCl (Loperamide 2 Mg Capsule) 2 mg PO Q2H PRN PRN Reason: DIARRHEA/LOOSE STOOLS Last Admin: 03/25/20 12:57 Dose: 2 mg Documented by: Melatonin (Melatonin 3 Mg Tablet) 3 mg PO QHS PRN PRN PRN Reason: INSOMNIA Metoprolol Tartrate (Metoprolol Tartrate 25 Mg Tablet) 12.5 mg PO BID [facility] Last Admin: 03/26/20 09:15 Dose: 12.5 mg Documented by: Midodrine (Midodrine Hcl 5 Mg Tablet) 5 mg PO TIDCM [facility] Last Admin: 03/26/20 12:00 Dose: 5 mg Documented by: Multivit/Ca Carb/B Cmplx/FA/Prenat (Folic Acid/Vitamin B Comp W-C 1 Capsule) 1 capsule PO DAILY [facility] Last Admin: 03/26/20 09:16 Dose: 1 capsule Documented by: Ondansetron HCl (Ondansetron 4 Mg/2 Ml Vial) 4 mg IV Q8H PRN PRN PRN Reason: NAUSEA/VOMITING Pravastatin Sodium (Pravastatin 80 Mg Tablet) 80 mg PO DAILY [facility] Last Admin: 03/26/20 09:16 Dose: 80 mg Documented by: Sodium Chloride (0.9% Saline Lock 10 Ml Syringe) 10 - 40 ml IV UD PRN PRN Reason: SALINE FLUSH Last Admin: 03/25/20 23:53 Dose: 10 ml Documented by: Tamsulosin HCl (Tamsulosin Hcl 0.4 Mg Capsule) 0.4 mg PO QHS [facility] Last Admin: 03/25/20 23:39 Dose: 0.4 mg Documented by: Medical Necessity - Tobacco Use Smoking Status: Never smoker Tobacco Use: Non-smoker Route of nutrition/ use of supplements: [] Nutritional Intake: [] IV Site: [] Boswell Catheter: [] - Assessment/Plan Antibiotics: [] Assessment/Plan: [] Active and Suspected Problems (Last Reviewed 03/25/20 @ 02:[address] Priyank Tate MD) Pneumonia (Acute) Debility (Acute) COVID-19 (Acute) SARS (severe acute respiratory syndrome) (Acute) Covid - On RA, feeling about the same. On dex. Not a candidate for remdesivir due to renal function. Ok for discharge home off of steroids. Recommended get tested and quarantine for 2 weeks. Will follow
[2020-03-26 17:36] LABS: Bedside Glucose 151 mg/dL (70-110)
[2020-03-26] MEDS: Tamsulosin HCl 0.4 MG Capsule PO (20:17)
[2020-03-26] MEDS: Latanoprost 0.005% 1 Bottle 1 DRP EACH EYE (20:19)
[2020-03-26] MEDS: 0.9% Saline Lock 10 ML Syringe IV (20:22)
[2020-03-26 21:00] LABS: Bedside Glucose 185 mg/dL (70-110)
[2020-03-27] VITALS (19 sets, daily range): BP systolic 128–150; BP diastolic 59–77; PULSE 47–87; RESP 16–20; TEMP 35.3–36.2; O2SAT 94–99
[2020-03-27 05:42] LABS: Absolute Lymphocyte Count 0.42 X10^3/uL (0.83-4.51); Absolute Neutrophil Count 3.2 X10^3/uL (2.0-7.7); Basophil# 0.01 X10^3/uL; Basophil% 0.3 % (0-1); Hematocrit 27.9 % (40-54); Hemoglobin 8.8 g/dL (13.0-16.5); Lymphocyte # 0.42 X10^3/ul (4.0); Lymphocyte % 10.6 % (19-41); Mean Corp Hgb Conc 31.5 g/dL (32-36); Mean Corpuscular Hgb 30.8 pg (27.0-32.0); Mean Corpuscular Volume 97.6 fL (80-94); Mean Platelet Vol. 10.8 fl (6.2-12.0); Monocyte# 0.24 X10^3/uL; Monocyte% 6.1 % (0-10); NRBC Flagged by Analyzer 0.8 % (0-5); Neutrophil # 3.23 X10^3/uL (2.7-7.7); Neutrophil % 81.7 % (47-70); POSITIVE COUNT YES; POSITIVE DIFFERENTIAL YES; Platelet Count 179 K/mm3 (150-450); RBC Distribution Width CV 16.1 % (11.6-14.6); RBC Distribution Width SD 57.7 fl (35.1-43.9); Red Blood Count 2.86 M/mm3 (4.6-6.2)
[2020-03-27 05:48] LABS: Differential Indicated SCAN CRITERIA MET
[2020-03-27 06:09] LABS: Differential Comment SCANNED; Platelet Estimate ADEQUATE (ADEQ); Polychromasia RARE
[2020-03-27 06:12] LABS: ALB/GLOB Ratio 0.6 RATIO (0.9-2.4); AST(SGOT) 41 U/L (15-37); Alanine Aminotransfer ALT/SGPT 28 U/L (16-61); Albumin, Serum 2.4 g/dL (3.2-5.0); Alkaline Phosphatase 61 U/L (45-117); Anion Gap 12 (5-15); BUN 75 mg/dL (7-18); BUN/Creat Ratio 8.7 RATIO (10-20); Chloride 98 mmol/L (98-107); EST Glomerular Filtration Rate 6 mL/min (>60); Est Glom Filt Rate - Afr Amer 8 mL/min (>60); Estimated Creatinine Clearance 6.74 ml/min; Globulin 3.7 g/dL (2.2-4.2); Glucose 178 mg/dL (74-106); Potassium 4.9 mmol/L (3.5-5.1); Protein, Total 6.1 g/dL (6.4-8.2); Sodium Level 132 mmol/L (136-145)
[2020-03-27] MEDS: Insulin Lispro 100 UNIT/ML INSULN.PEN SC ×4 (06:40→22:03)
--- NOTE | 2020-03-27 07:20 | PCM.PN.HOSP ---
Patient Problems: Active and Suspected Problems (Last Reviewed 03/25/20 @ 02:[address] Priyank Tate MD) Pneumonia (Acute) Debility (Acute) COVID-19 (Acute) SARS (severe acute respiratory syndrome) (Acute) Subjective: Patient overnight with no acute events per self and per nursing report. Patient notes diarrhea has certainly lessened. Patient denies any recurrent significant dyspnea or cough. Patient has been transitioned off oxygen to room air. Patient is still significantly weak especially with any activity. Did discuss initially custodial facility placement and patient had been reticent. Following discussions that patient would necessitate dialysis at [facility] given Covid status following discussions with his spouse now amenable to skilled facility placement near new dialysis center until clinically improved. Patient denies fevers, chills, nausea, emesis, abdominal pain, chest pain or dyspnea. Objective: Physical Examination: General: awake, alert, oriented x 3 and cooperative, seated upright in the [facility] bed, no acute distress, improved since initial presentation and even day prior. Skin: normal color, turgor, no icterus, cyanosis. HEENT: AT/NC, EOMI, PERRLA, MMM. Lungs: Improved breath sounds, improved effort, off oxygen, diminished but clear to auscultation, no obvious rales, rhonchi or wheezing. Heart: Bradycardic with regular rhythm; no gallop, rub audible. Abdomen: soft, obese, NTTP, ND, normalized BS. Extremities: no cyanosis, clubbing, or edema, + thrill AVF. Neurological: patient awake, alert, oriented as noted; cognitive function peers baseline intact; pupils equally reactive to light and accomodation; cranial nerves II-XII grossly normal, moving all 4 extremities, fatigued appearing, strength improving, moderately globally decreased secondary to acute presentation. Psychiatric: affect remains improved, more interactive, normal no acute evidence of depressive or anxiety feelings. Vitals/I&O's: Vital Signs Temp Pulse Resp BP Pulse Ox 96.1 F L 60 20 H 130/60 H 94 03/27/20 02:24 03/27/20 02:24 03/27/20 02:30 03/27/20 02:24 03/27/20 02:30 Oxygen Flow Rate (L/min) 2 Oxygen Delivery Method Room Air Weight: 241 lb 10.026 oz Body Mass Index (BMI) 37.4 Finger Stick Blood Glucose 124 Intake and Output for Last 24 Hours 03/25/20 03/26/20 03/27/20 23:59 23:59 23:59 Intake Total 595 / 695 570 / 970 500 / 500 Output Total 160 / 160 Balance 435 / 535 570 / 970 500 / 500 Laboratory Results 03/26/20 06:02: Diff Path Review Reviewed 03/26/20 11:55: POC Glucose 218 H 03/26/20 17:20: POC Glucose 151 H 03/26/20 20:26: POC Glucose 185 H 03/27/20 05:28: WBC 4.0 L, RBC 2.86 L, Hgb 8.8 L, Hct 27.9 L, MCV 97.6 H, MCH 30.8, MCHC 31.5 L, RDW Std Deviation 57.7 H, RDW Coeff of Renan 16.1 H, Plt Count 179, MPV 10.8, Immature Gran % (Auto) 1.300 H, Neut % (Auto) 81.7 H, Lymph % (Auto) 10.6 L, Harris % (Auto) 6.1, Eos % (Auto) 0.0, Baso % (Auto) 0.3, Absolute Neuts (auto) 3.2, Absolute Lymphs (auto) 0.42 L, Nucleated RBC % 0.8, Differential Comment SCANNED, Diff Path Review May foll, Platelet Estimate ADEQUATE, Polychromasia RARE 03/27/20 05:28: Sodium 132 L, Potassium 4.9, Chloride 98, Carbon Dioxide 22.0, Anion Gap 12, BUN 75 H, Creatinine 8.60 H*, Estim Creat Clear Calc 6.74, Est GFR (MDRD) Af Amer 8 L, Est GFR (MDRD) Non-Af 6 L, BUN/Creatinine Ratio 8.7 L, Glucose 178 H, Calcium 8.0 L, Total Bilirubin 0.40, AST 41 H, ALT 28, Alkaline Phosphatase 61, Total Protein 6.1 L, Albumin 2.4 L, Globulin 3.7, Albumin/Globulin Ratio 0.6 L Current Medications Acetaminophen (Acetaminophen 325 Mg Tablet) 650 mg PO Q6H PRN PRN PRN Reason: Pain Score 1-10/Temp > 100.7 F Albuterol Sulfate (Albuterol Ih 8.5 Gm (Proair) Inhaler (200 Puffs)) 2 puff INHALATION Q4H PRN PRN PRN Reason: SOB/WHEEZING Aspirin (Aspirin E.C. 81 Mg Tablet) 81 mg PO DAILY@0800 [facility] Last Admin: 03/26/20 09:13 Dose: 81 mg Documented by: Calamine/Phenol (Menthol/Lanolin/Calamine/Znox 113 Gm Tube) 1 applic TOPICAL BID [facility]; Protocol Last Admin: 03/26/20 20:18 Dose: 1 applicatio Documented by: Calcium Acetate (Calcium Acetate 667 Mg Capsule) 1,334 mg PO BREAKFAST [facility] Last Admin: 03/26/20 09:13 Dose: 1,334 mg Documented by: Clopidogrel Bisulfate (Clopidogrel Bisulfate 75 Mg Tablet) 75 mg PO DAILY [facility] Last Admin: 03/26/20 09:16 Dose: 75 mg Documented by: Dexamethasone (Dexamethasone 4 Mg Tablet) 6 mg PO DAILY [facility] Last Admin: 03/26/20 09:14 Dose: 6 mg Documented by: Dextrose (Dextrose 50%-Water 25 Gm/50 Ml Disp.Syrin) 0 gm IV X1 PRN; Protocol PRN Reason: Hypoglycemia Enoxaparin Sodium (Enoxaparin 30 Mg/0.3 Ml Syringe) 30 mg SC DAILY [facility] Last Admin: 03/26/20 10:16 Dose: 30 mg Documented by: Glucagon (Glucagon 1 Mg/Ml Syringe) 1 mg IM .X1 PRN PRN Reason: Hypoglycemia Guaifenesin (Guaifenesin 10 Ml Udc (200mg/10ml)) 10 ml PO Q4H PRN PRN PRN Reason: COUGH Sodium Chloride () 250 mls @ 15 mls/hr IV .[id number] PRN PRN Reason: Saline Flush Insulin Glargine (Insulin Glargine 100 Units/Ml Pen) 10 units SC QHS [facility] Last Admin: 03/26/20 20:27 Dose: 10 u Documented by: Insulin Human Lispro (Insulin Lispro 100 Unit/Ml Insuln.Pen) 0 unit SC ACHS [facility]; Protocol Last Admin: 03/27/20 06:40 Dose: 1 units Documented by: Latanoprost (Latanoprost 0.005% 1 Bottle) 1 drop EACH EYE QHS [facility] Last Admin: 03/26/20 20:19 Dose: 1 drop Documented by: Levothyroxine Sodium (Levothyroxine 175 Mcg Tablet) 175 mcg PO DAILY [facility] Last Admin: 03/26/20 09:17 Dose: 175 mcg Documented by: Loperamide HCl (Loperamide 2 Mg Capsule) 2 mg PO Q2H PRN PRN Reason: DIARRHEA/LOOSE STOOLS Last Admin: 03/25/20 12:57 Dose: 2 mg Documented by: Melatonin (Melatonin 3 Mg Tablet) 3 mg PO QHS PRN PRN PRN Reason: INSOMNIA Metoprolol Tartrate (Metoprolol Tartrate 25 Mg Tablet) 12.5 mg PO BID [facility] Last Admin: 03/26/20 20:17 Dose: 12.5 mg Documented by: Midodrine (Midodrine Hcl 5 Mg Tablet) 5 mg PO TIDCM [facility] Last Admin: 03/26/20 17:22 Dose: 5 mg Documented by: Multivit/Ca Carb/B Cmplx/FA/Prenat (Folic Acid/Vitamin B Comp W-C 1 Capsule) 1 capsule PO DAILY [facility] Last Admin: 03/26/20 09:16 Dose: 1 capsule Documented by: Ondansetron HCl (Ondansetron 4 Mg/2 Ml Vial) 4 mg IV Q8H PRN PRN PRN Reason: NAUSEA/VOMITING Pravastatin Sodium (Pravastatin 80 Mg Tablet) 80 mg PO DAILY [facility] Last Admin: 03/26/20 09:16 Dose: 80 mg Documented by: Sodium Chloride (0.9% Saline Lock 10 Ml Syringe) 10 - 40 ml IV UD PRN PRN Reason: SALINE FLUSH Last Admin: 03/26/20 20:22 Dose: 10 ml Documented by: Tamsulosin HCl (Tamsulosin Hcl 0.4 Mg Capsule) 0.4 mg PO QHS [facility] Last Admin: 03/26/20 20:17 Dose: 0.4 mg Documented by: Medical Necessity - Tobacco Use Smoking Status: Never smoker Tobacco Use: Non-smoker Assessment/Plan All Active Problems (Last Reviewed 03/25/20 @ 02:[address] 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 1. Acute hypoxia with dyspnea, Cough, Fever, diarrhea with Bilateral Pneumonia secondary to Acute Viral Syndrome, COVID-19: Admitted to medical surgical floor on telemetry, saturations improved with oxygen supplementation to low 90s, initially IV decadron-->oral decadron w/ continued close monitoring of patient blood sugars given underlying diabetes, not great candidate for remdesivir given renal disease, CTPA with patchy nodular groundglass infiltrates throughout both lungs with the midlung and lung base prominence consistent with Covid pneumonia with a small bilateral pleural effusions, right greater than left, no evidence of pulmonary emboli, pulmonary and ID consulted, not candidate for remdesivir given renal disease, noted enzyme elevation with recent intervention with trending with improvement, last 0.067, recent echo as noted, continue supportive care. Planned repeat 03/27/2020 HD treatment per discussion with Nephrology. Will need HD at [facility] facility given + COVID status. Given weakness and debility attempting SNF placement near [facility] HD sessions. 2. Indeterminate cardiac enzyme: Suspected secondary to #1, hypoxia associated, troponin 0.124, maintain on cardiac telemetry, will cycle cardiac enzymes, magnesium level 2.4. Recent 02/19/2020 echocardiogram with normal LV size, normal LV systolic function, EF 60% with moderate concentric LVH noted. Recent 02/19/2020 cardiac catheterization with severe coronary artery disease with calcification especially involving the circumflex arterial system involving the mid circumflex as well as the first obtuse marginal branch with noted extensive left to right collaterals filling almost the entire right coronary system with moderate LAD disease noted with transfer to tertiary facility for consideration CABG with eventually PCI performed. Continued on aspirin, Plavix, metoprolol, statin therapy. Cardiac enzyme trending with initial 0.124-> 0.086-> 0.079-> 0.067. 3. ESRD: Continue patient health education specialist consultation, dialysis Tuesday, , Tuesday normal regimen with HD 03/25/2020 with removal of 2 L, planned now repeat 03/27/2020 per discussion with patient's health education specialist. 4. AOCD: Admission hemoglobin 8.6, similar to baseline, anemia of chronic disease associated with end-stage renal disease, defer treatments to nephrology, consulted, 03/26/2020 hemoglobin 9.1-->03/27/20 Hgb 8.8. 5. History of 2nd AVB: That is post pacemaker placement, patient with recent interrogation during prior presentation without marked finding. 6. Diabetes mellitus type II: Hold oral home regimen, continue home insulin regimen alterations as needed given usage of steroids as would expect elevations, ADA diet, accu checks w/ ISS. 7. Hypertension: Continue home regimen including metoprolol with hold parameters especially given concurrent usage of midodrine with dialysis, PRN hydralazine. 8. Hyperlipidemia: Continue home statin regimen. 9. Hypothyroidism: Continue home synthroid regimen. 10. DVT prophylaxis: SCDs, Lovenox. 11. Code Status: DNR-CCA, no intubation. updated on patient progress and discharge planning. Inpatient E&M: 39898 Subs Hosp L2
[2020-03-27 07:41] LABS: Bedside Glucose 183 mg/dL (70-110)
[2020-03-27] MEDS: dexAMETHasone 4 MG Tablet 6 MG PO (08:09)
[2020-03-27] MEDS: Aspirin E.C. 81 MG Tablet PO (08:10)
[2020-03-27] MEDS: Midodrine HCl 5 MG Tablet PO ×3 (08:10→16:46)
[2020-03-27] MEDS: Menthol/Lanolin/Calamine/Znox 113 GM Tube 1 APPLIC TOPICAL ×2 (08:10→20:29)
[2020-03-27] MEDS: Calcium Acetate 667 MG Capsule 1334 MG PO (08:10)
[2020-03-27] MEDS: Pravastatin 80 MG Tablet PO (08:10)
[2020-03-27] MEDS: Folic Acid/Vitamin B Comp W-C 1 Capsule 1 CAP PO (08:11)
[2020-03-27] MEDS: Levothyroxine 175 MCG Tablet PO (08:11)
[2020-03-27] MEDS: Metoprolol Tartrate 25 MG Tablet 12.5 MG PO (08:11)
[2020-03-27] MEDS: Enoxaparin 30 MG/0.3 ML Syringe SC (08:12)
--- NOTE | 2020-03-27 09:55 | PCM.PN.REN ---
Patient Problems: Active and Suspected Problems (Last Reviewed 03/25/20 @ 02:[address] Priyank Tate MD) Pneumonia (Acute) Debility (Acute) COVID-19 (Acute) SARS (severe acute respiratory syndrome) (Acute) Subjective: Following for ESRD. Pt denies SOB at rest but is still tired. He denies nausea or edema. - Physical Exam Vitals/I&O's: Vital Signs Temp Pulse Resp BP Pulse Ox 96.1 F L 60 20 H 130/59 H 94 03/27/20 08:15 03/27/20 08:15 03/27/20 08:25 03/27/20 08:15 03/27/20 08:25 Oxygen Flow Rate (L/min) 2 Oxygen Delivery Method Room Air Weight: 109.6 kg Body Mass Index (BMI) 37.4 Finger Stick Blood Glucose 124 Intake and Output for Last 24 Hours 03/25/20 03/26/20 03/27/20 23:59 23:59 23:59 Intake Total 595 / 695 570 / 970 500 / 500 Output Total 160 / 160 Balance 435 / 535 570 / 970 500 / 500 General: Alert, Oriented x3 HEENT: Atraumatic Oral: Moist Mucosa Neck: Supple Lungs: Clear to auscultation Cardiovascular: Normal S1, Normal S2, No murmurs Abdomen: Bowel Sounds Present, Soft, Non Tender Extremities: No edema Microbiology Past 72 Hours 03/24/20 21:15 Blood Culture (Wb) - Right Hand Blood Culture - Preliminary No growth in 48 hours. 03/24/20 21:24 Blood Culture (Wb) - Right Forearm Blood Culture - Preliminary No growth in 48 hours. Laboratory Results 03/26/20 06:02: Diff Path Review Reviewed 03/26/20 11:55: POC Glucose 218 H 03/26/20 17:20: POC Glucose 151 H 03/26/20 20:26: POC Glucose 185 H 03/27/20 05:28: WBC 4.0 L, RBC 2.86 L, Hgb 8.8 L, Hct 27.9 L, MCV 97.6 H, MCH 30.8, MCHC 31.5 L, RDW Std Deviation 57.7 H, RDW Coeff of Renan 16.1 H, Plt Count 179, MPV 10.8, Immature Gran % (Auto) 1.300 H, Neut % (Auto) 81.7 H, Lymph % (Auto) 10.6 L, Solano % (Auto) 6.1, Eos % (Auto) 0.0, Baso % (Auto) 0.3, Absolute Neuts (auto) 3.2, Absolute Lymphs (auto) 0.42 L, Nucleated RBC % 0.8, Differential Comment SCANNED, Diff Path Review May foll, Platelet Estimate ADEQUATE, Polychromasia RARE 03/27/20 05:28: Sodium 132 L, Potassium 4.9, Chloride 98, Carbon Dioxide 22.0, Anion Gap 12, BUN 75 H, Creatinine 8.60 H*, Estim Creat Clear Calc 6.74, Est GFR (MDRD) Af Amer 8 L, Est GFR (MDRD) Non-Af 6 L, BUN/Creatinine Ratio 8.7 L, Glucose 178 H, Calcium 8.0 L, Total Bilirubin 0.40, AST 41 H, ALT 28, Alkaline Phosphatase 61, Total Protein 6.1 L, Albumin 2.4 L, Globulin 3.7, Albumin/Globulin Ratio 0.6 L 03/27/20 06:39: POC Glucose 183 H Current Medications Acetaminophen (Acetaminophen 325 Mg Tablet) 650 mg PO Q6H PRN PRN PRN Reason: Pain Score 1-10/Temp > 100.7 F Albuterol Sulfate (Albuterol Ih 8.5 Gm (Proair) Inhaler (200 Puffs)) 2 puff INHALATION Q4H PRN PRN PRN Reason: SOB/WHEEZING Aspirin (Aspirin E.C. 81 Mg Tablet) 81 mg PO DAILY@0800 [facility] Last Admin: 03/27/20 08:10 Dose: 81 mg Documented by: Calamine/Phenol (Menthol/Lanolin/Calamine/Znox 113 Gm Tube) 1 applic TOPICAL BID [facility]; Protocol Last Admin: 03/27/20 08:10 Dose: 1 applicatio Documented by: Calcium Acetate (Calcium Acetate 667 Mg Capsule) 1,334 mg PO BREAKFAST [facility] Last Admin: 03/27/20 08:10 Dose: 1,334 mg Documented by: Clopidogrel Bisulfate (Clopidogrel Bisulfate 75 Mg Tablet) 75 mg PO DAILY [facility] Last Admin: 03/26/20 09:16 Dose: 75 mg Documented by: Dexamethasone (Dexamethasone 4 Mg Tablet) 6 mg PO DAILY [facility] Last Admin: 03/27/20 08:09 Dose: 6 mg Documented by: Dextrose (Dextrose 50%-Water 25 Gm/50 Ml Disp.Syrin) 0 gm IV X1 PRN; Protocol PRN Reason: Hypoglycemia Enoxaparin Sodium (Enoxaparin 30 Mg/0.3 Ml Syringe) 30 mg SC DAILY [facility] Last Admin: 03/27/20 08:12 Dose: 30 mg Documented by: Glucagon (Glucagon 1 Mg/Ml Syringe) 1 mg IM .X1 PRN PRN Reason: Hypoglycemia Guaifenesin (Guaifenesin 10 Ml Udc (200mg/10ml)) 10 ml PO Q4H PRN PRN PRN Reason: COUGH Sodium Chloride () 250 mls @ 15 mls/hr IV .[id number] PRN PRN Reason: Saline Flush Insulin Glargine (Insulin Glargine 100 Units/Ml Pen) 10 units SC QHS [facility] Last Admin: 03/26/20 20:27 Dose: 10 u Documented by: Insulin Human Lispro (Insulin Lispro 100 Unit/Ml Insuln.Pen) 0 unit SC ACHS [facility]; Protocol Last Admin: 03/27/20 06:40 Dose: 1 units Documented by: Latanoprost (Latanoprost 0.005% 1 Bottle) 1 drop EACH EYE QHS [facility] Last Admin: 03/26/20 20:19 Dose: 1 drop Documented by: Levothyroxine Sodium (Levothyroxine 175 Mcg Tablet) 175 mcg PO DAILY [facility] Last Admin: 03/27/20 08:11 Dose: 175 mcg Documented by: Loperamide HCl (Loperamide 2 Mg Capsule) 2 mg PO Q2H PRN PRN Reason: DIARRHEA/LOOSE STOOLS Last Admin: 03/25/20 12:57 Dose: 2 mg Documented by: Melatonin (Melatonin 3 Mg Tablet) 3 mg PO QHS PRN PRN PRN Reason: INSOMNIA Metoprolol Tartrate (Metoprolol Tartrate 25 Mg Tablet) 12.5 mg PO BID [facility] Last Admin: 03/27/20 08:11 Dose: 12.5 mg Documented by: Midodrine (Midodrine Hcl 5 Mg Tablet) 5 mg PO TIDCM [facility] Last Admin: 03/27/20 08:10 Dose: 5 mg Documented by: Multivit/Ca Carb/B Cmplx/FA/Prenat (Folic Acid/Vitamin B Comp W-C 1 Capsule) 1 capsule PO DAILY [facility] Last Admin: 03/27/20 08:11 Dose: 1 capsule Documented by: Ondansetron HCl (Ondansetron 4 Mg/2 Ml Vial) 4 mg IV Q8H PRN PRN PRN Reason: NAUSEA/VOMITING Pravastatin Sodium (Pravastatin 80 Mg Tablet) 80 mg PO DAILY [facility] Last Admin: 03/27/20 08:10 Dose: 80 mg Documented by: Sodium Chloride (0.9% Saline Lock 10 Ml Syringe) 10 - 40 ml IV UD PRN PRN Reason: SALINE FLUSH Last Admin: 03/26/20 20:22 Dose: 10 ml Documented by: Tamsulosin HCl (Tamsulosin Hcl 0.4 Mg Capsule) 0.4 mg PO QHS [facility] Last Admin: 03/26/20 20:17 Dose: 0.4 mg Documented by: Medical Necessity - Tobacco Use Smoking Status: Never smoker Tobacco Use: Non-smoker Assessment/Plan All Active Problems (Last Reviewed 03/25/20 @ 02:[address] Priyank Tate MD) Pneumonia (Acute) Debility (Acute) COVID-19 (Acute) SARS (severe acute respiratory syndrome) (Acute) Nephrolithiasis (Resolved) 1. ESRD. HD TTS. Will dialyze later today. Will UF around 2 L (if BP allows). 2. Anemia. Continue JOSE with HD. 3. SHPT. Continue calcium acetate with meals. Will check Ca/P as outpt. 4. COVID19 infection. On dexamethasone. Clinically improving. He will have to go to a cohort COVID19 dialysis unit in [place], [place] until he tests negative for COVID19.
[2020-03-27] MEDS: Clopidogrel Bisulfate 75 MG Tablet PO (10:25)
--- NOTE | 2020-03-27 10:47 | CASEMGMT ---
RN BARRY Note: Physician is considering dc today for patient. Home oxygen testing completed and patient will not need home oxygen. Patient will need walker for home. Introduced role of CM to patient via phone. [facility] @ [facility] facility is Tuesday03/29/20 @ 6 am. The patient requested I contact his re: home health care and equipment needs. -Call to who was very anxious re: the patient coming home. She states she is unable to assist him at home so he needs to be independent with his care, and be able to navigate 4 stairs to a bathroom and walk length of house to get to his lift chair. Patient also was having difficulty getting in and out of the car prior to admission. She requested CM speak with her daughter in [place] who will call. -RN BARRY [facility] with [facility] . Daughter and are requesting patient go to SNF near [facility] to a facility that could transfer (or they may need to pay for transportation) to dialysis. -Call to [facility] in [place] . Message left with [employer] Services Officer requesting any information they could offer for area facilities that their patients with COVID may utilize. -Update to [facility]. -Update to Dr. Mendoza. Trice LEEN RN ACM
[2020-03-27 13:48] LABS: Pathologist Review Reviewed
--- NOTE | 2020-03-27 15:15 | CASEMGMT ---
Social Work Referral received from PAUL Grady. Pt family hoping pt can go to a SNF that will transport him to dialysis center in [place]. Phone call to [facility] [place] and [facility] in [place]. They facilities do not accept Covid pt. Phone call to [facility] in [place]. They do accept Covid pt but are currently full and admission coordinator here states they are the only facility in the area accepting Covid patients. Phone call to [facility], as there is a designated Covid dialysis center near there. Although they do accept covid pt they do not have any way to transport pt to dialysis. Phone call to [facility] [place] and they do accept Covid pt and have [facility] If pt could be changed from [facility] to [facility] then they could possible accept pt and do on site dialysis. Miguel A MILLER updated and she spoke with family who would be agreeable to this. Referral faxed to [facility] and [facility] confirms they are in network with insurance. Will await determination. Plan: [facility] [place], pending acceptance, insurance auth and change of dialysis provider. DONNELL Mckeon
[2020-03-27 15:56] LABS: Bedside Glucose 258 mg/dL (70-110)
[2020-03-27 16:51] LABS: Bedside Glucose 303 mg/dL (70-110)
[2020-03-27] MEDS: Latanoprost 0.005% 1 Bottle 1 DRP EACH EYE (20:32)
[2020-03-27] MEDS: 0.9% Saline Lock 10 ML Syringe IV (20:35)
[2020-03-27] MEDS: Tamsulosin HCl 0.4 MG Capsule PO (22:04)
[2020-03-27 22:25] LABS: Bedside Glucose 192 mg/dL (70-110)
[2020-03-28] VITALS (18 sets, daily range): BP systolic 107–137; BP diastolic 50–69; PULSE 60–63; RESP 16–20; TEMP 35.2–36.1; O2SAT 92–97
--- NOTE | 2020-03-28 01:30 | DIALYSIS ---
Hemodialysis completed. -2000ml off. stable t/o. hemostasis to luavg obtained. gauze/tape applied. Report to Carley VALENCIA
[2020-03-28 05:32] LABS: Absolute Lymphocyte Count 0.57 X10^3/uL (0.83-4.51); Basophil# 0.01 X10^3/uL; Basophil% 0.2 % (0-1); Hematocrit 27.7 % (40-54); Lymphocyte # 0.57 X10^3/ul (4.0); Lymphocyte % 14.1 % (19-41); Mean Corp Hgb Conc 32.5 g/dL (32-36); Mean Corpuscular Hgb 31.3 pg (27.0-32.0); Mean Corpuscular Volume 96.2 fL (80-94); Mean Platelet Vol. 9.7 fl (6.2-12.0); Monocyte# 0.32 X10^3/uL; Monocyte% 7.9 % (0-10); NRBC Flagged by Analyzer 2.2 % (0-5); Neutrophil # 3.04 X10^3/uL (2.7-7.7); Neutrophil % 75.3 % (47-70); POSITIVE DIFFERENTIAL YES; Platelet Count 197 K/mm3 (150-450); RBC Distribution Width CV 15.9 % (11.6-14.6); RBC Distribution Width SD 55.8 fl (35.1-43.9); Red Blood Count 2.88 M/mm3 (4.6-6.2)
[2020-03-28 05:39] LABS: Differential Indicated SCAN CRITERIA MET
[2020-03-28 06:09] LABS: ALB/GLOB Ratio 0.7 RATIO (0.9-2.4); AST(SGOT) 28 U/L (15-37); Alanine Aminotransfer ALT/SGPT 31 U/L (16-61); Albumin, Serum 2.6 g/dL (3.2-5.0); Alkaline Phosphatase 60 U/L (45-117); Anion Gap 9 (5-15); BUN 40 mg/dL (7-18); BUN/Creat Ratio 7.3 RATIO (10-20); Calcium,Total 7.5 mg/dL (8.5-10.1); Chloride 90 mmol/L (98-107); Creatinine, Serum 5.49 mg/dL (0.70-1.30); EST Glomerular Filtration Rate 11 mL/min (>60); Est Glom Filt Rate - Afr Amer 13 mL/min (>60); Estimated Creatinine Clearance 10.56 ml/min; Globulin 3.5 g/dL (2.2-4.2); Glucose 126 mg/dL (74-106); Potassium 3.4 mmol/L (3.5-5.1); Protein, Total 6.1 g/dL (6.4-8.2); Sodium Level 130 mmol/L (136-145)
[2020-03-28 06:41] LABS: Differential Comment SCANNED
[2020-03-28 07:01] LABS: Bedside Glucose 130 mg/dL (70-110)
--- NOTE | 2020-03-28 07:04 | PCM.PN.HOSP ---
Patient Problems: Active and Suspected Problems (Last Reviewed 03/25/20 @ 02:[address] Priyank Tate MD) Pneumonia (Acute) Debility (Acute) COVID-19 (Acute) SARS (severe acute respiratory syndrome) (Acute) Subjective: Patient with no acute events overnight per self and per nursing report patient. Patient is extremely irritable this morning, noted that he sat in his chair and was waiting for someone to help him get back to bed with various other complaints. Patient notes complete resolution of prior abdominal discomfort, diarrhea, dyspnea or cough. Did discuss patient status with his spouse who notes that this is his baseline behavior and agrees that he seems as though he is feeling improved. Patient awaiting skilled facility bed placement for continued therapies and dialysis access. Patient denies fevers, chills, nausea, emesis, abdominal pain, chest pain or dyspnea. Objective: Physical Examination: General: awake, alert, oriented x 3 and cooperative, seated upright in the [place] to Covid unit bed, no acute distress, irritable. Skin: normal color, turgor, no icterus, cyanosis. HEENT: AT/NC, EOMI, PERRLA, MMM. Lungs: Improved breath sounds, improved effort, off oxygen, diminished but clear to auscultation, no obvious rales, rhonchi or wheezing. Heart: Bradycardic with regular rhythm; no gallop, rub audible. Abdomen: soft, obese, NTTP, ND, normalized BS. Extremities: no cyanosis, clubbing, or edema, + thrill AVF. Neurological: patient awake, alert, oriented as noted; cognitive function peers baseline intact; pupils equally reactive to light and accomodation; cranial nerves II-XII grossly normal, moving all 4 extremities, fatigued appearing, strength improving, needs moderately globally decreased secondary to acute presentation. Psychiatric: affect remains irritable, no acute evidence of depressive or anxiety feelings. Vitals/I&O's: Vital Signs Temp Pulse Resp BP Pulse Ox 95.4 F L 60 18 116/54 L 96 03/28/20 06:42 03/28/20 06:42 03/28/20 06:42 03/28/20 06:42 03/28/20 06:42 Oxygen Flow Rate (L/min) 2 Oxygen Delivery Method Room Air Weight: 242 lb 11.663 oz Body Mass Index (BMI) 37.4 Finger Stick Blood Glucose 124 Intake and Output for Last 24 Hours 03/26/20 03/27/20 03/28/20 23:59 23:59 23:59 Intake Total 570 / 970 700 / 700 300 / 300 Output Total 1999 Balance 570 / 970 700 / 700 -1700 / -1700 Microbiology Past 72 Hours 03/24/20 21:15 Blood Culture (Wb) - Right Hand Blood Culture - Preliminary No growth in 48 hours. 03/24/20 21:24 Blood Culture (Wb) - Right Forearm Blood Culture - Preliminary No growth in 48 hours. Laboratory Results 03/27/20 05:28: Diff Path Review Reviewed 03/27/20 06:39: POC Glucose 183 H 03/27/20 11:50: POC Glucose 258 H 03/27/20 16:38: POC Glucose 303 H 03/27/20 22:00: POC Glucose 192 H 03/28/20 05:12: WBC 4.0 L, RBC 2.88 L, Hgb 9.0 L, Hct 27.7 L, MCV 96.2 H, MCH 31.3, MCHC 32.5, RDW Std Deviation 55.8 H, RDW Coeff of Renan 15.9 H, Plt Count 197, MPV 9.7, Immature Gran % (Auto) 2.500 H, Neut % (Auto) 75.3 H, Lymph % (Auto) 14.1 L, Delta % (Auto) 7.9, Eos % (Auto) 0.0, Baso % (Auto) 0.2, Absolute Neuts (auto) 3.0, Absolute Lymphs (auto) 0.57 L, Nucleated RBC % 2.2, Differential Comment SCANNED, Diff Path Review September03/28/20 05:12: Sodium 130 L, Potassium 3.4 L, Chloride 90 L, Carbon Dioxide 31.0, Anion Gap 9, BUN 40 H, Creatinine 5.49 H, Estim Creat Clear Calc 10.56, Est GFR (MDRD) Af Amer 13 L, Est GFR (MDRD) Non-Af 11 L, BUN/Creatinine Ratio 7.3 L, Glucose 126 H, Calcium 7.5 L, Total Bilirubin 0.40, AST 28, ALT 31, Alkaline Phosphatase 60, Total Protein 6.1 L, Albumin 2.6 L, Globulin 3.5, Albumin/Globulin Ratio 0.7 L 03/28/20 06:41: POC Glucose 130 H Current Medications Acetaminophen (Acetaminophen 325 Mg Tablet) 650 mg PO Q6H PRN PRN PRN Reason: Pain Score 1-10/Temp > 100.7 F Albuterol Sulfate (Albuterol Ih 8.5 Gm (Proair) Inhaler (200 Puffs)) 2 puff INHALATION Q4H PRN PRN PRN Reason: SOB/WHEEZING Aspirin (Aspirin E.C. 81 Mg Tablet) 81 mg PO DAILY@0800 [facility] Last Admin: 03/27/20 08:10 Dose: 81 mg Documented by: Calamine/Phenol (Menthol/Lanolin/Calamine/Znox 113 Gm Tube) 1 applic TOPICAL BID [facility]; Protocol Last Admin: 03/27/20 20:29 Dose: 1 applicatio Documented by: Calcium Acetate (Calcium Acetate 667 Mg Capsule) 1,334 mg PO BREAKFAST [facility] Last Admin: 03/27/20 08:10 Dose: 1,334 mg Documented by: Clopidogrel Bisulfate (Clopidogrel Bisulfate 75 Mg Tablet) 75 mg PO DAILY [facility] Last Admin: 03/27/20 10:25 Dose: 75 mg Documented by: Dexamethasone (Dexamethasone 4 Mg Tablet) 6 mg PO DAILY [facility] Last Admin: 03/27/20 08:09 Dose: 6 mg Documented by: Dextrose (Dextrose 50%-Water 25 Gm/50 Ml Disp.Syrin) 0 gm IV X1 PRN; Protocol PRN Reason: Hypoglycemia Enoxaparin Sodium (Enoxaparin 30 Mg/0.3 Ml Syringe) 30 mg SC DAILY [facility] Last Admin: 03/27/20 08:12 Dose: 30 mg Documented by: Glucagon (Glucagon 1 Mg/Ml Syringe) 1 mg IM .X1 PRN PRN Reason: Hypoglycemia Guaifenesin (Guaifenesin 10 Ml Udc (200mg/10ml)) 10 ml PO Q4H PRN PRN PRN Reason: COUGH Sodium Chloride () 250 mls @ 15 mls/hr IV .[id number] PRN PRN Reason: Saline Flush Insulin Glargine (Insulin Glargine 100 Units/Ml Pen) 10 units SC QHS [facility] Last Admin: 03/27/20 22:04 Dose: 10 u Documented by: Insulin Human Lispro (Insulin Lispro 100 Unit/Ml Insuln.Pen) 0 unit SC ACHS [facility]; Protocol Last Admin: 03/28/20 06:41 Dose: Not Given Documented by: Latanoprost (Latanoprost 0.005% 1 Bottle) 1 drop EACH EYE QHS [facility] Last Admin: 03/27/20 20:32 Dose: 1 drop Documented by: Levothyroxine Sodium (Levothyroxine 175 Mcg Tablet) 175 mcg PO DAILY [facility] Last Admin: 03/27/20 08:11 Dose: 175 mcg Documented by: Loperamide HCl (Loperamide 2 Mg Capsule) 2 mg PO Q2H PRN PRN Reason: DIARRHEA/LOOSE STOOLS Last Admin: 03/25/20 12:57 Dose: 2 mg Documented by: Melatonin (Melatonin 3 Mg Tablet) 3 mg PO QHS PRN PRN PRN Reason: INSOMNIA Metoprolol Tartrate (Metoprolol Tartrate 25 Mg Tablet) 12.5 mg PO BID [facility] Last Admin: 03/27/20 23:00 Dose: Not Given Documented by: Midodrine (Midodrine Hcl 5 Mg Tablet) 5 mg PO TIDCM [facility] Last Admin: 03/27/20 16:46 Dose: 5 mg Documented by: Multivit/Ca Carb/B Cmplx/FA/Prenat (Folic Acid/Vitamin B Comp W-C 1 Capsule) 1 capsule PO DAILY [facility] Last Admin: 03/27/20 08:11 Dose: 1 capsule Documented by: Ondansetron HCl (Ondansetron 4 Mg/2 Ml Vial) 4 mg IV Q8H PRN PRN PRN Reason: NAUSEA/VOMITING Pravastatin Sodium (Pravastatin 80 Mg Tablet) 80 mg PO DAILY [facility] Last Admin: 03/27/20 08:10 Dose: 80 mg Documented by: Sodium Chloride (0.9% Saline Lock 10 Ml Syringe) 10 - 40 ml IV UD PRN PRN Reason: SALINE FLUSH Last Admin: 03/27/20 20:35 Dose: 10 ml Documented by: Tamsulosin HCl (Tamsulosin Hcl 0.4 Mg Capsule) 0.4 mg PO QHS [facility] Last Admin: 03/27/20 22:04 Dose: 0.4 mg Documented by: STROKE Vital Signs/Narrative: Vital Signs Temp Pulse Resp BP Pulse Ox 03/28/20 06:42 95.4 F L 60 18 116/54 L 96 Medical Necessity - Tobacco Use Smoking Status: Never smoker Tobacco Use: Non-smoker Assessment/Plan All Active Problems (Last Reviewed 03/25/20 @ 02:[address] 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 1. Acute hypoxia with dyspnea, Cough, Fever, diarrhea with Bilateral Pneumonia secondary to Acute Viral Syndrome, COVID-19: Admitted to medical surgical floor on telemetry, saturations improved with oxygen supplementation to low 90s, initially IV decadron-->oral decadron w/ continued close monitoring of patient blood sugars given underlying diabetes, not great candidate for remdesivir given renal disease, CTPA with patchy nodular groundglass infiltrates throughout both lungs with the midlung and lung base prominence consistent with Covid pneumonia with a small bilateral pleural effusions, right greater than left, no evidence of pulmonary emboli, pulmonary and ID consulted, not candidate for remdesivir given renal disease, noted enzyme elevation with recent intervention with trending with improvement, last 0.067, recent echo as noted, continue supportive care. Patient awaiting SNF bed with access to HD. We will plan repeat HD 03/29/2020 and hopefully following potential for discharge to skilled facility if precertification obtained. Nephrology following as noted. 2. Indeterminate cardiac enzyme: Suspected secondary to #1, hypoxia associated, troponin 0.124, maintain on cardiac telemetry, will cycle cardiac enzymes, magnesium level 2.4. Recent 02/19/2020 echocardiogram with normal LV size, normal LV systolic function, EF 60% with moderate concentric LVH noted. Recent 02/19/2020 cardiac catheterization with severe coronary artery disease with calcification especially involving the circumflex arterial system involving the mid circumflex as well as the first obtuse marginal branch with noted extensive left to right collaterals filling almost the entire right coronary system with moderate LAD disease noted with transfer to tertiary facility for consideration CABG with eventually PCI performed. Continued on aspirin, Plavix, metoprolol, statin therapy. Cardiac enzyme trending with initial 0.124-> 0.086-> 0.079-> 0.067. 3. ESRD: Continue patient fluid dynamicist consultation, dialysis Tuesday, , Tuesday normal regimen with HD 03/25/2020 with removal of 2 L, repeat HD 03/27/20 with additional plans for repeat HD 03/29/2020 a.m. Patient would continue then to have dialysis at the skilled facility if precertification obtained. 4. AOCD: Admission hemoglobin 8.6, similar to baseline, anemia of chronic disease associated with end-stage renal disease, defer treatments to nephrology, consulted, 03/26/2020 hemoglobin 9.1-->03/28/20 Hgb 9.0. 5. History of 2nd AVB: s/p pacemaker placement, patient with recent interrogation during prior presentation without marked finding. 6. Diabetes mellitus type II: Hold oral home regimen, continue home insulin regimen, ADA diet, accu checks w/ ISS. 7. Hypertension: Continue home regimen including metoprolol with hold parameters, PRN hydralazine. 8. Hyperlipidemia: Continue home statin regimen. 9. Hypothyroidism: Continue home synthroid regimen. 10. DVT prophylaxis: SCDs, Lovenox. 11. Code Status: DNR-CCA, no intubation. Inpatient E&M: 53122 Subs Hosp L2
[2020-03-28] MEDS: Aspirin E.C. 81 MG Tablet PO (08:21)
[2020-03-28] MEDS: Metoprolol Tartrate 25 MG Tablet 12.5 MG PO ×2 (08:21→21:10)
[2020-03-28] MEDS: dexAMETHasone 4 MG Tablet 6 MG PO (08:22)
[2020-03-28] MEDS: Levothyroxine 175 MCG Tablet PO (08:22)
[2020-03-28] MEDS: Clopidogrel Bisulfate 75 MG Tablet PO (08:22)
[2020-03-28] MEDS: Pravastatin 80 MG Tablet PO (08:22)
[2020-03-28] MEDS: Folic Acid/Vitamin B Comp W-C 1 Capsule 1 CAP PO (08:22)
[2020-03-28] MEDS: Calcium Acetate 667 MG Capsule 1334 MG PO (08:23)
[2020-03-28] MEDS: Midodrine HCl 5 MG Tablet PO ×3 (08:23→16:32)
[2020-03-28] MEDS: Enoxaparin 30 MG/0.3 ML Syringe SC (08:23)
[2020-03-28] MEDS: Menthol/Lanolin/Calamine/Znox 113 GM Tube 1 APPLIC TOPICAL ×2 (08:24→21:14)
--- NOTE | 2020-03-28 11:21 | PN.RENAL_ITS ---
Patient Problems: Active and Suspected Problems (Last Reviewed 03/25/20 @ 02:[address] Priyank Tate MD) Pneumonia (Acute) Debility (Acute) COVID-19 (Acute) SARS (severe acute respiratory syndrome) (Acute) Subjective: Following for ESRD. No CP or SOB. However, he is frustrated about the room service (not getting immediate attention when he wants something). - Physical Exam Vitals/I&O's: Vital Signs Temp Pulse Resp BP Pulse Ox 95.4 F L 60 18 116/54 L 94 03/28/20 06:42 03/28/20 08:21 03/28/20 06:42 03/28/20 06:42 03/28/20 08:42 Oxygen Flow Rate (L/min) 2 Oxygen Delivery Method Room Air Weight: 110.1 kg Body Mass Index (BMI) 37.4 Finger Stick Blood Glucose 124 Intake and Output for Last 24 Hours 03/26/20 03/27/20 03/28/20 23:59 23:59 23:59 Intake Total 570 / 970 700 / 700 300 / 300 Output Total 1999 / 1999 Balance 570 / 970 700 / 700 -1700 / -1700 General: Alert, Oriented x3 HEENT: Atraumatic, EOMI Oral: Moist Mucosa Neck: Supple Lungs: Clear to auscultation Cardiovascular: Normal S1, Normal S2, No murmurs Abdomen: Bowel Sounds Present, Soft, Non Tender Extremities: No edema Microbiology Past 72 Hours 03/24/20 21:15 Blood Culture (Wb) - Right Hand Blood Culture - Preliminary No growth in 48 hours. 03/24/20 21:24 Blood Culture (Wb) - Right Forearm Blood Culture - Preliminary No growth in 48 hours. Laboratory Results 03/27/20 05:28: Diff Path Review Reviewed 03/27/20 11:50: POC Glucose 258 H 03/27/20 16:38: POC Glucose 303 H 03/27/20 22:00: POC Glucose 192 H 03/28/20 05:12: WBC 4.0 L, RBC 2.88 L, Hgb 9.0 L, Hct 27.7 L, MCV 96.2 H, MCH 31.3, MCHC 32.5, RDW Std Deviation 55.8 H, RDW Coeff of Renan 15.9 H, Plt Count 197, MPV 9.7, Immature Gran % (Auto) 2.500 H, Neut % (Auto) 75.3 H, Lymph % (Auto) 14.1 L, Page % (Auto) 7.9, Eos % (Auto) 0.0, Baso % (Auto) 0.2, Absolute Neuts (auto) 3.0, Absolute Lymphs (auto) 0.57 L, Nucleated RBC % 2.2, Differential Comment SCANNED, Diff Path Review September [facility] 03/28/20 05:12: Sodium 130 L, Potassium 3.4 L, Chloride 90 L, Carbon Dioxide 31.0, Anion Gap 9, BUN 40 H, Creatinine 5.49 H, Estim Creat Clear Calc 10.56, Est GFR (MDRD) Af Amer 13 L, Est GFR (MDRD) Non-Af 11 L, BUN/Creatinine Ratio 7.3 L, Glucose 126 H, Calcium 7.5 L, Total Bilirubin 0.40, AST 28, ALT 31, Alkaline Phosphatase 60, Total Protein 6.1 L, Albumin 2.6 L, Globulin 3.5, Albumin/Globulin Ratio 0.7 L 03/28/20 06:41: POC Glucose 130 H Current Medications Acetaminophen (Acetaminophen 325 Mg Tablet) 650 mg PO Q6H PRN PRN PRN Reason: Pain Score 1-10/Temp > 100.7 F Albuterol Sulfate (Albuterol Ih 8.5 Gm (Proair) Inhaler (200 Puffs)) 2 puff INHALATION Q4H PRN PRN PRN Reason: SOB/WHEEZING Aspirin (Aspirin E.C. 81 Mg Tablet) 81 mg PO DAILY@0800 [facility] Last Admin: 03/28/20 08:21 Dose: 81 mg Documented by: Calamine/Phenol (Menthol/Lanolin/Calamine/Znox 113 Gm Tube) 1 applic TOPICAL BID [facility]; Protocol Last Admin: 03/28/20 08:24 Dose: 1 applicatio Documented by: Calcium Acetate (Calcium Acetate 667 Mg Capsule) 1,334 mg PO BREAKFAST [facility] Last Admin: 03/28/20 08:23 Dose: 1,334 mg Documented by: Clopidogrel Bisulfate (Clopidogrel Bisulfate 75 Mg Tablet) 75 mg PO DAILY [facility] Last Admin: 03/28/20 08:22 Dose: 75 mg Documented by: Dexamethasone (Dexamethasone 4 Mg Tablet) 6 mg PO DAILY [facility] Last Admin: 03/28/20 08:22 Dose: 6 mg Documented by: Dextrose (Dextrose 50%-Water 25 Gm/50 Ml Disp.Syrin) 0 gm IV X1 PRN; Protocol PRN Reason: Hypoglycemia Enoxaparin Sodium (Enoxaparin 30 Mg/0.3 Ml Syringe) 30 mg SC DAILY [facility] Last Admin: 03/28/20 08:23 Dose: 30 mg Documented by: Glucagon (Glucagon 1 Mg/Ml Syringe) 1 mg IM .X1 PRN PRN Reason: Hypoglycemia Guaifenesin (Guaifenesin 10 Ml Udc (200mg/10ml)) 10 ml PO Q4H PRN PRN PRN Reason: COUGH Sodium Chloride () 250 mls @ 15 mls/hr IV .[id number] PRN PRN Reason: Saline Flush Insulin Glargine (Insulin Glargine 100 Units/Ml Pen) 10 units SC QHS [facility] Last Admin: 03/27/20 22:04 Dose: 10 u Documented by: Insulin Human Lispro (Insulin Lispro 100 Unit/Ml Insuln.Pen) 0 unit SC ACHS [facility]; Protocol Last Admin: 03/28/20 06:41 Dose: Not Given Documented by: Latanoprost (Latanoprost 0.005% 1 Bottle) 1 drop EACH EYE QHS [facility] Last Admin: 03/27/20 20:32 Dose: 1 drop Documented by: Levothyroxine Sodium (Levothyroxine 175 Mcg Tablet) 175 mcg PO DAILY [facility] Last Admin: 03/28/20 08:22 Dose: 175 mcg Documented by: Loperamide HCl (Loperamide 2 Mg Capsule) 2 mg PO Q2H PRN PRN Reason: DIARRHEA/LOOSE STOOLS Last Admin: 03/25/20 12:57 Dose: 2 mg Documented by: Melatonin (Melatonin 3 Mg Tablet) 3 mg PO QHS PRN PRN PRN Reason: INSOMNIA Metoprolol Tartrate (Metoprolol Tartrate 25 Mg Tablet) 12.5 mg PO BID [facility] Last Admin: 03/28/20 08:21 Dose: 12.5 mg Documented by: Midodrine (Midodrine Hcl 5 Mg Tablet) 5 mg PO TIDCM [facility] Last Admin: 03/28/20 08:23 Dose: 5 mg Documented by: Multivit/Ca Carb/B Cmplx/FA/Prenat (Folic Acid/Vitamin B Comp W-C 1 Capsule) 1 capsule PO DAILY [facility] Last Admin: 03/28/20 08:22 Dose: 1 capsule Documented by: Ondansetron HCl (Ondansetron 4 Mg/2 Ml Vial) 4 mg IV Q8H PRN PRN PRN Reason: NAUSEA/VOMITING Pravastatin Sodium (Pravastatin 80 Mg Tablet) 80 mg PO DAILY [facility] Last Admin: 03/28/20 08:22 Dose: 80 mg Documented by: Sodium Chloride (0.9% Saline Lock 10 Ml Syringe) 10 - 40 ml IV UD PRN PRN Reason: SALINE FLUSH Last Admin: 03/27/20 20:35 Dose: 10 ml Documented by: Tamsulosin HCl (Tamsulosin Hcl 0.4 Mg Capsule) 0.4 mg PO QHS [facility] Last Admin: 03/27/20 22:04 Dose: 0.4 mg Documented by: Medical Necessity - Tobacco Use Smoking Status: Never smoker Tobacco Use: Non-smoker Assessment/Plan All Active Problems (Last Reviewed 03/25/20 @ 02:[address] Priyank Tate MD) Pneumonia (Acute) Debility (Acute) COVID-19 (Acute) SARS (severe acute respiratory syndrome) (Acute) Nephrolithiasis (Resolved) 1. ESRD. HD TTS. No HD needed today. Next HD tomorrow. 2. Anemia. Continue JOSE with HD. 3. SHPT. Continue calcium acetate with meals. Will check Ca/P as outpt. 4. COVID19 infection. On dexamethasone. Clinically improving. D/w healthcare customer service and hospitalist. Working on SNF placement with HD on site.
[2020-03-28 11:25] LABS: Bedside Glucose 263 mg/dL (70-110)
[2020-03-28] MEDS: Insulin Lispro 100 UNIT/ML INSULN.PEN SC ×3 (11:31→21:08)
--- NOTE | 2020-03-28 12:18 | CASEMGMT ---
Social Work SW spoke with Carlos in admissions at [facility]. They are able to accept pt. A new referral will need to be made to [facility]. Miguel A VALENCIACM updated and will work on this. Per Carlos this process will take a few days so precert for SNF placement will not be started until Tuesday. WINDY placed phone call to pt dgt Ioana Pantera [phone] and updated on discharge plan. Ioana is agreeable to discharge to [facility] with onsight dialysis through [facility]. Ioana made aware that insurance will only cover stay for short term and pt will likely still test positive at the time of discharge. Ioana states once pt is complete with rehab and can ambulate and care for self more independently and is out of quarantine pt can return home and family will find someone to transport pt to [place] for Dialysis. Phone call to pt in room and discussed discharge plan. Pt is understanding and agreeable with plan. Plan: [facility], Dialysis needs changed to [facility], Insurance precert to be started on Tuesday. DONNELL Mckeon
--- NOTE | 2020-03-28 12:51 | CASEMGMT ---
ANNIE CM Note: Dialysis clinicals and cover sheet faxed to [facility] @ [phone]. Trice ARAIZA RN ACM
[2020-03-28 13:50] LABS: Pathologist Review Reviewed
--- NOTE | 2020-03-28 15:15 | CASEMGMT ---
Addendum entered by Miguel A Tovar 03/28/20 17:26: ~1600- called to [facility] @ . Explained to dialysis nurse that patient will be coming to their facility next week and referral was sent to wrong facility. Clinicals faxed to them @ . -called again to [facility]. Spoke with Jarvis. Lengthy call to clarify the facility request is for the [facility]. This was finally completed and referral will be processed. Hep panel is not completed yet and will need to be faxed on Tuesday. -Jarvis @ [facility] ext [phone] Original Note: Call to [facility] to verify fax was received. Per Intake person, the referral was faxed to the [facility] and not to the [facility]. Intake person was not able to understand that the [facility] is a SNF with In house hemodialysis. RN BARRY asked for [facility] phone number. Called to them to explain patient is not coming to them. They appreciated the clarification. Trice LEEN RN ACM
[2020-03-28 16:40] LABS: Bedside Glucose 285 mg/dL (70-110)
[2020-03-28] MEDS: Tamsulosin HCl 0.4 MG Capsule PO (21:10)
[2020-03-28] MEDS: Latanoprost 0.005% 1 Bottle 1 DRP EACH EYE (21:13)
[2020-03-28 22:31] LABS: Bedside Glucose 338 mg/dL (70-110)
[2020-03-29] VITALS (14 sets, daily range): BP systolic 118–143; BP diastolic 61–68; PULSE 59–61; RESP 18–20; TEMP 35.2–36.8; O2SAT 94–96
--- NOTE | 2020-03-29 07:23 | PCM.PN.HOSP ---
Patient Problems: Active and Suspected Problems (Last Reviewed 03/25/20 @ 02:[address] Priyank Tate MD) Pneumonia (Acute) Debility (Acute) COVID-19 (Acute) SARS (severe acute respiratory syndrome) (Acute) Subjective: Patient with no acute events overnight per self and per nursing report. He notes feeling more weak and fatigued today than day prior. Patient with repeat dialysis plan today. Patient understands still awaiting precertification for placement to skilled facility where he may be able to also receive dialysis concurrently. Patient less irritable than day prior but eager for transition out of the hospital. Patient notes as though he feels constipated and denies any recent recurrent diarrhea rather a lack of bowel movements over the last 24 to 48 hours. Patient denies fevers, chills, nausea, emesis, abdominal pain, chest pain or dyspnea. Objective: Physical Examination: General: awake, alert, oriented x 3 and cooperative, [facility], no acute distress. Skin: normal color, turgor, no icterus, cyanosis. HEENT: AT/NC, EOMI, PERRLA, MMM. Lungs: Breath sounds, greater bases, improved effort, no obvious rales, rhonchi or wheezing. Heart: Bradycardic with regular rhythm; no gallop, rub audible. Abdomen: soft, obese, mild generalized discomfort with palpation, mildly distended, mildly hyperactive bowel sounds. Extremities: no cyanosis, clubbing, or edema, + thrill AVF. Neurological: patient awake, alert, oriented as noted; cognitive function peers baseline intact; pupils equally reactive to light and accomodation; cranial nerves II-XII grossly normal, moving all 4 extremities, fatigued appearing, strength moderately globally decreased secondary to acute presentation. Psychiatric: affect improved, more normal, less irritable, no acute evidence of depressive or anxiety feelings. Vitals/I&O's: Vital Signs Temp Pulse Resp BP Pulse Ox 95.3 F L 60 20 H 125/76 H 95 03/29/20 04:45 03/29/20 04:45 03/29/20 04:54 03/29/20 04:45 03/29/20 04:45 Oxygen Flow Rate (L/min) 2 Oxygen Delivery Method Room Air Weight: 240 lb 15.444 oz Body Mass Index (BMI) 37.4 Finger Stick Blood Glucose 124 Intake and Output for Last 24 Hours 03/27/20 03/28/20 03/29/20 23:59 23:59 23:59 Intake Total 700 / 700 980 / 1080 100 / 100 Output Total 1999 / 1999 Balance 700 / 700 -1020 / -920 100 / 100 Microbiology Past 72 Hours 03/24/20 21:15 Blood Culture (Wb) - Right Hand Blood Culture - Preliminary No growth in 48 hours. 03/24/20 21:24 Blood Culture (Wb) - Right Forearm Blood Culture - Preliminary No growth in 48 hours. Laboratory Results 03/28/20 05:12: Diff Path Review Reviewed 03/28/20 11:11: POC Glucose 263 H 03/28/20 16:20: POC Glucose 285 H 03/28/20 21:00: POC Glucose 338 H Current Medications Acetaminophen (Acetaminophen 325 Mg Tablet) 650 mg PO Q6H PRN PRN PRN Reason: Pain Score 1-10/Temp > 100.7 F Albuterol Sulfate (Albuterol Ih 8.5 Gm (Proair) Inhaler (200 Puffs)) 2 puff INHALATION Q4H PRN PRN PRN Reason: SOB/WHEEZING Aspirin (Aspirin E.C. 81 Mg Tablet) 81 mg PO DAILY@0800 [facility] Last Admin: 03/28/20 08:21 Dose: 81 mg Documented by: Calamine/Phenol (Menthol/Lanolin/Calamine/Znox 113 Gm Tube) 1 applic TOPICAL BID [facility]; Protocol Last Admin: 03/28/20 21:14 Dose: 1 applicatio Documented by: Calcium Acetate (Calcium Acetate 667 Mg Capsule) 1,334 mg PO BREAKFAST [facility] Last Admin: 03/28/20 08:23 Dose: 1,334 mg Documented by: Clopidogrel Bisulfate (Clopidogrel Bisulfate 75 Mg Tablet) 75 mg PO DAILY [facility] Last Admin: 03/28/20 08:22 Dose: 75 mg Documented by: Dexamethasone (Dexamethasone 4 Mg Tablet) 6 mg PO DAILY [facility] Last Admin: 03/28/20 08:22 Dose: 6 mg Documented by: Dextrose (Dextrose 50%-Water 25 Gm/50 Ml Disp.Syrin) 0 gm IV X1 PRN; Protocol PRN Reason: Hypoglycemia Enoxaparin Sodium (Enoxaparin 30 Mg/0.3 Ml Syringe) 30 mg SC DAILY [facility] Last Admin: 03/28/20 08:23 Dose: 30 mg Documented by: Glucagon (Glucagon 1 Mg/Ml Syringe) 1 mg IM .X1 PRN PRN Reason: Hypoglycemia Guaifenesin (Guaifenesin 10 Ml Udc (200mg/10ml)) 10 ml PO Q4H PRN PRN PRN Reason: COUGH Sodium Chloride () 250 mls @ 15 mls/hr IV .[id number] PRN PRN Reason: Saline Flush Insulin Glargine (Insulin Glargine 100 Units/Ml Pen) 10 units SC QHS [facility] Last Admin: 03/28/20 21:09 Dose: 10 u Documented by: Insulin Human Lispro (Insulin Lispro 100 Unit/Ml Insuln.Pen) 0 unit SC [facility]; Protocol Last Admin: 03/29/20 06:55 Dose: Not Given Documented by: Latanoprost (Latanoprost 0.005% 1 Bottle) 1 drop EACH EYE QHS [facility] Last Admin: 03/28/20 21:13 Dose: 1 drop Documented by: Levothyroxine Sodium (Levothyroxine 175 Mcg Tablet) 175 mcg PO DAILY [facility] Last Admin: 03/28/20 08:22 Dose: 175 mcg Documented by: Loperamide HCl (Loperamide 2 Mg Capsule) 2 mg PO Q2H PRN PRN Reason: DIARRHEA/LOOSE STOOLS Last Admin: 03/25/20 12:57 Dose: 2 mg Documented by: Melatonin (Melatonin 3 Mg Tablet) 3 mg PO QHS PRN PRN PRN Reason: INSOMNIA Metoprolol Tartrate (Metoprolol Tartrate 25 Mg Tablet) 12.5 mg PO BID [facility] Last Admin: 03/28/20 21:10 Dose: 12.5 mg Documented by: Midodrine (Midodrine Hcl 5 Mg Tablet) 5 mg PO TIDCM [facility] Last Admin: 03/28/20 16:32 Dose: 5 mg Documented by: Multivit/Ca Carb/B Cmplx/FA/Prenat (Folic Acid/Vitamin B Comp W-C 1 Capsule) 1 capsule PO DAILY [facility] Last Admin: 03/28/20 08:22 Dose: 1 capsule Documented by: Ondansetron HCl (Ondansetron 4 Mg/2 Ml Vial) 4 mg IV Q8H PRN PRN PRN Reason: NAUSEA/VOMITING Pravastatin Sodium (Pravastatin 80 Mg Tablet) 80 mg PO DAILY [facility] Last Admin: 03/28/20 08:22 Dose: 80 mg Documented by: Sodium Chloride (0.9% Saline Lock 10 Ml Syringe) 10 - 40 ml IV UD PRN PRN Reason: SALINE FLUSH Last Admin: 03/27/20 20:35 Dose: 10 ml Documented by: Tamsulosin HCl (Tamsulosin Hcl 0.4 Mg Capsule) 0.4 mg PO QHS [facility] Last Admin: 03/28/20 21:10 Dose: 0.4 mg Documented by: STROKE Vital Signs/Narrative: Vital Signs Temp Pulse Resp BP Pulse Ox 03/29/20 04:54 20 H 03/29/20 04:45 95.3 F L 60 18 125/76 H 95 Medical Necessity - Tobacco Use Smoking Status: Never smoker Tobacco Use: Non-smoker Assessment/Plan All Active Problems (Last Reviewed 03/25/20 @ 02:[address] 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 1. Acute hypoxia with dyspnea, Cough, Fever, diarrhea with Bilateral Pneumonia secondary to Acute Viral Syndrome, COVID-19: Admitted to medical surgical floor on telemetry, saturations improved with oxygen supplementation to low 90s, initially IV decadron-->oral decadron w/ continued close monitoring of patient blood sugars given underlying diabetes, not great candidate for remdesivir given renal disease, CTPA with patchy nodular groundglass infiltrates throughout both lungs with the midlung and lung base prominence consistent with Covid pneumonia with a small bilateral pleural effusions, right greater than left, no evidence of pulmonary emboli, pulmonary and ID consulted, not candidate for remdesivir given renal disease, noted enzyme elevation with recent intervention with trending with improvement, last 0.067, recent echo as noted, continue supportive care. Plan repeat 03/29/2020 HD. [facility]. Patient diarrhea completely resolved, now with constipation therefore bowel regimen will be also initiated. 2. Indeterminate cardiac enzyme: Suspected secondary to #1, hypoxia associated, troponin 0.124, maintain on cardiac telemetry, will cycle cardiac enzymes, magnesium level 2.4. Recent 02/19/2020 echocardiogram with normal LV size, normal LV systolic function, EF 60% with moderate concentric LVH noted. Recent 02/19/2020 cardiac catheterization with severe coronary artery disease with calcification especially involving the circumflex arterial system involving the mid circumflex as well as the first obtuse marginal branch with noted extensive left to right collaterals filling almost the entire right coronary system with moderate LAD disease noted with transfer to tertiary facility for consideration CABG with eventually PCI performed. Continued on aspirin, Plavix, metoprolol, statin therapy. Cardiac enzyme trending with initial 0.124-> 0.086-> 0.079-> 0.067. 3. 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 Patient would continue then to have dialysis at the skilled facility if precertification obtained. 4. AOCD: Admission hemoglobin 8.6, similar to baseline, anemia of chronic disease associated with end-stage renal disease, defer treatments to nephrology, consulted, 03/26/2020 hemoglobin 9.1-->03/29/20 Hgb 9.2. 5. History of 2nd AVB: s/p pacemaker placement, patient with recent interrogation during prior presentation without marked finding. 6. Diabetes mellitus type II: Hold oral home regimen, continue home insulin regimen, ADA diet, accu checks w/ ISS. 7. Hypertension: Continue home regimen including metoprolol with hold parameters, PRN hydralazine. 8. Hyperlipidemia: Continue home statin regimen. 9. Hypothyroidism: Continue home synthroid regimen. 10. DVT prophylaxis: SCDs, Lovenox. 11. Code Status: DNR-CCA, no intubation. Inpatient E&M: 19129 Subs Hosp L2
[2020-03-29 08:09] LABS: Absolute Lymphocyte Count 0.48 X10^3/uL (0.83-4.51); Absolute Neutrophil Count 4.8 X10^3/uL (2.0-7.7); Basophil# 0.01 X10^3/uL; Basophil% 0.2 % (0-1); Hematocrit 28.5 % (40-54); Hemoglobin 9.2 g/dL (13.0-16.5); Lymphocyte # 0.48 X10^3/ul (4.0); Lymphocyte % 8.4 % (19-41); Mean Corp Hgb Conc 32.3 g/dL (32-36); Mean Corpuscular Hgb 31.3 pg (27.0-32.0); Mean Corpuscular Volume 96.9 fL (80-94); Mean Platelet Vol. 9.5 fl (6.2-12.0); Monocyte# 0.32 X10^3/uL; Monocyte% 5.6 % (0-10); NRBC Flagged by Analyzer 1.2 % (0-5); Neutrophil # 4.77 X10^3/uL (2.7-7.7); Neutrophil % 83.9 % (47-70); POSITIVE DIFFERENTIAL YES; Platelet Count 232 K/mm3 (150-450); RBC Distribution Width CV 15.8 % (11.6-14.6); RBC Distribution Width SD 55.2 fl (35.1-43.9); Red Blood Count 2.94 M/mm3 (4.6-6.2); White Blood Count 5.7 K/mm3 (4.4-11.0)
[2020-03-29 08:12] LABS: Differential Indicated SCAN CRITERIA MET
[2020-03-29 08:37] LABS: ALB/GLOB Ratio 0.8 RATIO (0.9-2.4); AST(SGOT) 28 U/L (15-37); Alanine Aminotransfer ALT/SGPT 31 U/L (16-61); Albumin, Serum 2.6 g/dL (3.2-5.0); Alkaline Phosphatase 63 U/L (45-117); Anion Gap 14 (5-15); BUN 66 mg/dL (7-18); BUN/Creat Ratio 8.9 RATIO (10-20); Calcium,Total 7.8 mg/dL (8.5-10.1); Chloride 90 mmol/L (98-107); Creatinine, Serum 7.39 mg/dL (0.70-1.30); EST Glomerular Filtration Rate 8 mL/min (>60); Est Glom Filt Rate - Afr Amer 9 mL/min (>60); Estimated Creatinine Clearance 7.84 ml/min; Globulin 3.4 g/dL (2.2-4.2); Glucose 137 mg/dL (74-106); Sodium Level 132 mmol/L (136-145)
[2020-03-29] MEDS: Calcium Acetate 667 MG Capsule 1334 MG PO (08:39)
[2020-03-29] MEDS: Midodrine HCl 5 MG Tablet PO ×3 (08:39→18:07)
[2020-03-29] MEDS: Aspirin E.C. 81 MG Tablet PO (08:39)
[2020-03-29] MEDS: Folic Acid/Vitamin B Comp W-C 1 Capsule 1 CAP PO (08:40)
[2020-03-29] MEDS: dexAMETHasone 4 MG Tablet 6 MG PO (08:40)
[2020-03-29] MEDS: Pravastatin 80 MG Tablet PO (08:41)
[2020-03-29] MEDS: Clopidogrel Bisulfate 75 MG Tablet PO (08:41)
[2020-03-29] MEDS: Levothyroxine 175 MCG Tablet PO (08:41)
[2020-03-29] MEDS: Menthol/Lanolin/Calamine/Znox 113 GM Tube 1 APPLIC TOPICAL (08:41)
[2020-03-29] MEDS: Metoprolol Tartrate 25 MG Tablet 12.5 MG PO (08:43)
[2020-03-29] MEDS: 0.9% Saline Lock 10 ML Syringe IV (08:45)
[2020-03-29] MEDS: Enoxaparin 30 MG/0.3 ML Syringe SC (08:45)
[2020-03-29 08:51] LABS: Differential Comment SCANNED
[2020-03-29 08:56] LABS: Bedside Glucose 147 mg/dL (70-110)
[2020-03-29] MEDS: Insulin Lispro 100 UNIT/ML INSULN.PEN SC ×2 (11:25→16:20)
[2020-03-29 11:46] LABS: Bedside Glucose 288 mg/dL (70-110)
[2020-03-29] MEDS: Polyethylene Glycol 3350 17 GM PACKET PO (13:02)
[2020-03-29 16:35] LABS: Bedside Glucose 357 mg/dL (70-110)
[2020-03-30] VITALS (19 sets, daily range): BP systolic 103–159; BP diastolic 48–76; PULSE 59–80; RESP 16–20; TEMP 35.9–36.6; O2SAT 94–96
--- NOTE | 2020-03-30 00:27 | DIALYSIS ---
Pt completed hemodialysis treatment via left arm AV graft with 2600ml fluid removed. Hemostasis obtained after needles removed. Pt tolerated treatment without difficulty.
[2020-03-30] MEDS: Tamsulosin HCl 0.4 MG Capsule PO ×2 (01:23→19:46)
[2020-03-30] MEDS: Insulin Lispro 100 UNIT/ML INSULN.PEN SC ×5 (01:25→19:47)
[2020-03-30] MEDS: Menthol/Lanolin/Calamine/Znox 113 GM Tube 1 APPLIC TOPICAL ×3 (01:26→19:53)
[2020-03-30] MEDS: Latanoprost 0.005% 1 Bottle 1 DRP EACH EYE ×2 (01:27→19:54)
[2020-03-30 01:46] LABS: Bedside Glucose 184 mg/dL (70-110)
[2020-03-30] MEDS: MELATONIN 3 MG TABLET PO (03:06)
[2020-03-30 06:29] LABS: Absolute Lymphocyte Count 0.51 X10^3/uL (0.83-4.51); Absolute Neutrophil Count 4.5 X10^3/uL (2.0-7.7); Basophil# 0.02 X10^3/uL; Basophil% 0.4 % (0-1); Eosinophil# 0.01 X10^3/uL; Eosinophils% 0.2 % (0-5); Hematocrit 29.8 % (40-54); Hemoglobin 9.4 g/dL (13.0-16.5); Lymphocyte # 0.51 X10^3/ul (4.0); Lymphocyte % 9.3 % (19-41); Mean Corp Hgb Conc 31.5 g/dL (32-36); Mean Corpuscular Volume 98.3 fL (80-94); Mean Platelet Vol. 9.7 fl (6.2-12.0); Monocyte# 0.33 X10^3/uL; NRBC Flagged by Analyzer 0.7 % (0-5); Neutrophil # 4.45 X10^3/uL (2.7-7.7); Neutrophil % 81.4 % (47-70); POSITIVE DIFFERENTIAL YES; Platelet Count 253 K/mm3 (150-450); RBC Distribution Width CV 15.9 % (11.6-14.6); RBC Distribution Width SD 55.8 fl (35.1-43.9); Red Blood Count 3.03 M/mm3 (4.6-6.2); White Blood Count 5.5 K/mm3 (4.4-11.0)
[2020-03-30 06:31] LABS: Differential Indicated SCAN CRITERIA MET
[2020-03-30 06:57] LABS: ALB/GLOB Ratio 0.8 RATIO (0.9-2.4); AST(SGOT) 24 U/L (15-37); Alanine Aminotransfer ALT/SGPT 34 U/L (16-61); Albumin, Serum 2.6 g/dL (3.2-5.0); Alkaline Phosphatase 62 U/L (45-117); Anion Gap 9 (5-15); BUN 38 mg/dL (7-18); BUN/Creat Ratio 7.6 RATIO (10-20); Calcium,Total 8.1 mg/dL (8.5-10.1); Chloride 96 mmol/L (98-107); Creatinine, Serum 4.97 mg/dL (0.70-1.30); EST Glomerular Filtration Rate 12 mL/min (>60); Est Glom Filt Rate - Afr Amer 15 mL/min (>60); Estimated Creatinine Clearance 11.66 ml/min; Globulin 3.4 g/dL (2.2-4.2); Glucose 146 mg/dL (74-106); Potassium 4.1 mmol/L (3.5-5.1); Sodium Level 134 mmol/L (136-145)
[2020-03-30 07:04] LABS: Differential Comment SCANNED; Hypochromasia 2+
--- NOTE | 2020-03-30 07:04 | PCM.PN.HOSP ---
Patient Problems: Active and Suspected Problems (Last Reviewed 03/25/20 @ 02:[address] 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 Admitted to medical surgical floor on telemetry, saturations improved with oxygen supplementation to low 90s, initially IV decadron-->oral decadron w/ continued close monitoring of patient blood sugars given underlying diabetes, not great candidate for remdesivir given renal disease, CTPA with patchy nodular groundglass infiltrates throughout both lungs with the midlung and lung base prominence consistent with Covid pneumonia with a small bilateral pleural effusions, right greater than left, no evidence of pulmonary emboli. Recent 02/19/2020 echocardiogram with normal LV size, normal LV systolic function, EF 60% with moderate concentric LVH noted. Recent 02/19/2020 cardiac catheterization with severe coronary artery disease with calcification especially involving the circumflex arterial system involving the mid circumflex as well as the first obtuse marginal branch with noted extensive left to right collaterals filling almost the entire right coronary system with moderate LAD disease noted with transfer to tertiary facility for consideration CABG with eventually PCI performed. Continued on aspirin, Plavix, metoprolol, statin therapy. Cardiac enzyme trending with initial 0.124-> 0.086-> 0.079-> 0.067. ESRD on HD 03/25/20, 03/27/20, 03/29/20. Pulmonary and ID following. Needs 03/31/20 pacer evaluation as noted atypical spike during T. Pending SNF precertification. Patient with no acute events overnight per self and per nursing report. Patient napping this morning, fatigued. Denies any recurrent dyspnea, cough, diarrhea. Patient on monitor with atypical spike of his pacemaker with last noted interrogation December without event there. Requested repeat assessment pending a spike noted specifically in the T wave intermittently on telemetry. Patient understands still awaiting precertification for retirement facility placement that has dialysis access. Patient denies fevers, chills, nausea, emesis, abdominal pain, chest pain or dyspnea. Objective: Physical Examination: General: Wakens to stimuli, alert once awoken, oriented x 3, remains cooperative, seated upright in the [place] to [facility] unit bed, no acute distress. Skin: normal color, turgor, no icterus, cyanosis. HEENT: AT/NC, EOMI, PERRLA, MMM. Lungs: Decreased breath sounds, greater bases, improved effort, no obvious rales, rhonchi or wheezing. Heart: Bradycardic with regular rhythm; no gallop, rub audible. Abdomen: soft, obese, nontender to palpation, still feels mildly distended but this might be patient chronic baseline, normalized bowel sounds. Extremities: no cyanosis, clubbing, or edema, + thrill AVF. Neurological: patient awake, alert, oriented as noted; cognitive function peers baseline intact; pupils equally reactive to light and accomodation; cranial nerves II-XII grossly normal, moving all 4 extremities, fatigued appearing, strength moderately globally decreased secondary to acute presentation. Psychiatric: affect fatigued, no acute evidence of depressive or anxiety feelings. Vitals/I&O's: Vital Signs Temp Pulse Resp BP Pulse Ox 97.9 F 60 16 136/64 H 96 03/30/20 02:55 03/30/20 04:02 03/30/20 02:55 03/30/20 02:55 03/30/20 04:00 Oxygen Flow Rate (L/min) 2 Oxygen Delivery Method Room Air Weight: 236 lb 15.951 oz Body Mass Index (BMI) 37.4 Finger Stick Blood Glucose 124 Intake and Output for Last 24 Hours 03/28/20 03/29/20 03/30/20 23:59 23:59 23:59 Intake Total 980 / 1080 1220 / 1470 650 / 650 Output Total 1999 / 1999 2600 / 2600 Balance -1020 / -920 1220 / 1470 -1950 / -1950 Microbiology Past 72 Hours 03/24/20 21:15 Blood Culture (Wb) - Right Hand Blood Culture - Final No growth in 5 days. 03/24/20 21:24 Blood Culture (Wb) - Right Forearm Blood Culture - Final No growth in 5 days. Laboratory Results 03/29/20 06:54: POC Glucose 147 H 03/29/20 07:55: WBC 5.7, RBC 2.94 L, Hgb 9.2 L, Hct 28.5 L, MCV 96.9 H, MCH 31.3, MCHC 32.3, RDW Std Deviation 55.2 H, RDW Coeff of Renan 15.8 H, Plt Count 232, MPV 9.5, Immature Gran % (Auto) 1.900 H, Neut % (Auto) 83.9 H, Lymph % (Auto) 8.4 L, [place] % (Auto) 5.6, Eos % (Auto) 0.0, Baso % (Auto) 0.2, Absolute Neuts (auto) 4.8, Absolute Lymphs (auto) 0.48 L, Nucleated RBC % 1.2, Differential Comment SCANNED 03/29/20 07:55: Sodium 132 L, Potassium 4.0, Chloride 90 L, Carbon Dioxide 28.0, Anion Gap 14, BUN 66 H, Creatinine 7.39 H, Estim Creat Clear Calc 7.84, Est GFR (MDRD) Af Amer 9 L, Est GFR (MDRD) Non-Af 8 L, BUN/Creatinine Ratio 8.9 L, Glucose 137 H, Calcium 7.8 L, Total Bilirubin 0.50, AST 28, ALT 31, Alkaline Phosphatase 63, Total Protein 6.0 L, Albumin 2.6 L, Globulin 3.4, Albumin/Globulin Ratio 0.8 L 03/29/20 07:55: Hepatitis A IgM Ab Pending, Hepatitis A Ab Total Pending, Hep Bs Antigen Pending, Hep B Core Total Ab Pending, Hep B Core IgM Ab Pending 03/29/20 11:24: POC Glucose 288 H 03/29/20 16:19: POC Glucose 357 H 03/30/20 01:15: POC Glucose 184 H 03/30/20 05:22: WBC 5.5, RBC 3.03 L, Hgb 9.4 L, Hct 29.8 L, MCV 98.3 H, MCH 31.0, MCHC 31.5 L, RDW Std Deviation 55.8 H, RDW Coeff of Renan 15.9 H, Plt Count 253, MPV 9.7, Immature Gran % (Auto) 2.700 H, Neut % (Auto) 81.4 H, Lymph % (Auto) 9.[address] L, [place] % (Auto) 6.0, Eos % (Auto) 0.2, Baso % (Auto) 0.4, Absolute Neuts (auto) 4.5, Absolute Lymphs (auto) 0.51 L, Nucleated RBC % 0.7 03/30/20 05:22: Sodium 134 L, Potassium 4.1, Chloride 96 L, Carbon Dioxide 29.0, Anion Gap 9, BUN 38 H, Creatinine 4.97 H, Estim Creat Clear Calc 11.66, Est GFR (MDRD) Af Amer 15 L, Est GFR (MDRD) Non-Af 12 L, BUN/Creatinine Ratio 7.6 L, Glucose 146 H, Calcium 8.1 L, Total Bilirubin 0.50, AST 24, ALT 34, Alkaline Phosphatase 62, Total Protein 6.0 L, Albumin 2.6 L, Globulin 3.4, Albumin/Globulin Ratio 0.8 L Current Medications Acetaminophen (Acetaminophen 325 Mg Tablet) 650 mg PO Q6H PRN PRN PRN Reason: Pain Score 1-10/Temp > 100.7 F Albuterol Sulfate (Albuterol Ih 8.5 Gm (Proair) Inhaler (200 Puffs)) 2 puff INHALATION Q4H PRN PRN PRN Reason: SOB/WHEEZING Aspirin (Aspirin E.C. 81 Mg Tablet) 81 mg PO DAILY@0800 [facility] Last Admin: 03/29/20 08:39 Dose: 81 mg Documented by: Calamine/Phenol (Menthol/Lanolin/Calamine/Znox 113 Gm Tube) 1 applic TOPICAL BID [facility]; Protocol Last Admin: 03/30/20 01:26 Dose: 1 applicatio Documented by: Calcium Acetate (Calcium Acetate 667 Mg Capsule) 1,334 mg PO BREAKFAST [facility] Last Admin: 03/29/20 08:39 Dose: 1,334 mg Documented by: Clopidogrel Bisulfate (Clopidogrel Bisulfate 75 Mg Tablet) 75 mg PO DAILY [facility] Last Admin: 03/29/20 08:41 Dose: 75 mg Documented by: Dexamethasone (Dexamethasone 4 Mg Tablet) 6 mg PO DAILY [facility] Last Admin: 03/29/20 08:40 Dose: 6 mg Documented by: Dextrose (Dextrose 50%-Water 25 Gm/50 Ml Disp.Syrin) 0 gm IV X1 PRN; Protocol PRN Reason: Hypoglycemia Enoxaparin Sodium (Enoxaparin 30 Mg/0.3 Ml Syringe) 30 mg SC DAILY [facility] Last Admin: 03/29/20 08:45 Dose: 30 mg Documented by: Glucagon (Glucagon 1 Mg/Ml Syringe) 1 mg IM .X1 PRN PRN Reason: Hypoglycemia Guaifenesin (Guaifenesin 10 Ml Udc (200mg/10ml)) 10 ml PO Q4H PRN PRN PRN Reason: COUGH Sodium Chloride () 250 mls @ 15 mls/hr IV .[id number] PRN PRN Reason: Saline Flush Insulin Glargine (Insulin Glargine 100 Units/Ml Pen) 10 units SC QHS [facility] Last Admin: 03/30/20 01:25 Dose: 10 u Documented by: Insulin Human Lispro (Insulin Lispro 100 Unit/Ml Insuln.Pen) 0 unit SC [facility]; Protocol Last Admin: 03/30/20 06:27 Dose: 1 units Documented by: Latanoprost (Latanoprost 0.005% 1 Bottle) 1 drop EACH EYE QHS [facility] Last Admin: 03/30/20 01:27 Dose: 1 drop Documented by: Levothyroxine Sodium (Levothyroxine 175 Mcg Tablet) 175 mcg PO DAILY [facility] Last Admin: 03/29/20 08:41 Dose: 175 mcg Documented by: Loperamide HCl (Loperamide 2 Mg Capsule) 2 mg PO Q2H PRN PRN Reason: DIARRHEA/LOOSE STOOLS Last Admin: 03/25/20 12:57 Dose: 2 mg Documented by: Melatonin (Melatonin 3 Mg Tablet) 3 mg PO QHS PRN PRN PRN Reason: INSOMNIA Last Admin: 03/30/20 03:06 Dose: 3 mg Documented by: Metoprolol Tartrate (Metoprolol Tartrate 25 Mg Tablet) 12.5 mg PO BID [facility] Last Admin: 03/30/20 01:24 Dose: Not Given Documented by: Midodrine (Midodrine Hcl 5 Mg Tablet) 5 mg PO TIDCM [facility] Last Admin: 03/29/20 18:07 Dose: 5 mg Documented by: Multivit/Ca Carb/B Cmplx/FA/Prenat (Folic Acid/Vitamin B Comp W-C 1 Capsule) 1 capsule PO DAILY [facility] Last Admin: 03/29/20 08:40 Dose: 1 capsule Documented by: Ondansetron HCl (Ondansetron 4 Mg/2 Ml Vial) 4 mg IV Q8H PRN PRN PRN Reason: NAUSEA/VOMITING Polyethylene Glycol (Polyethylene Glycol 3350 17 Gm Packet) 17 gm PO DAILY [facility] Last Admin: 03/29/20 13:02 Dose: 17 gm Documented by: Pravastatin Sodium (Pravastatin 80 Mg Tablet) 80 mg PO DAILY [facility] Last Admin: 03/29/20 08:41 Dose: 80 mg Documented by: Sodium Chloride (0.9% Saline Lock 10 Ml Syringe) 10 - 40 ml IV UD PRN PRN Reason: SALINE FLUSH Last Admin: 03/29/20 08:45 Dose: 10 ml Documented by: Tamsulosin HCl (Tamsulosin Hcl 0.4 Mg Capsule) 0.4 mg PO QHS [facility] Last Admin: 03/30/20 01:23 Dose: 0.4 mg Documented by: STROKE Vital Signs/Narrative: Vital Signs Pulse Pulse Ox 03/30/20 04:02 60 03/30/20 04:00 96 Medical Necessity - Tobacco Use Smoking Status: Never smoker Tobacco Use: Non-smoker Assessment/Plan All Active Problems (Last Reviewed 03/25/20 @ 02:[address] 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 1. Acute hypoxia with dyspnea, Cough, Fever, diarrhea with Bilateral Pneumonia secondary to Acute Viral Syndrome, COVID-19: Admitted to medical surgical floor on telemetry, saturations improved with oxygen supplementation to low 90s, initially IV decadron-->oral decadron w/ continued close monitoring of patient blood sugars given underlying diabetes, not great candidate for remdesivir given renal disease, CTPA with patchy nodular groundglass infiltrates throughout both lungs with the midlung and lung base prominence consistent with Covid pneumonia with a small bilateral pleural effusions, right greater than left, no evidence of pulmonary emboli, pulmonary and ID consulted, not candidate for remdesivir given renal disease, noted enzyme elevation with recent intervention with trending with improvement, last 0.067, recent echo as noted, continue supportive care. Awaiting SNF placement precertification, specifically from facility in [place] with HD in-house. 2. Indeterminate cardiac enzyme: Suspected secondary to #1, hypoxia associated, troponin 0.124, maintain on cardiac telemetry, will cycle cardiac enzymes, magnesium level 2.4. Recent 02/19/2020 echocardiogram with normal LV size, normal LV systolic function, EF 60% with moderate concentric LVH noted. Recent 02/19/2020 cardiac catheterization with severe coronary artery disease with calcification especially involving the circumflex arterial system involving the mid circumflex as well as the first obtuse marginal branch with noted extensive left to right collaterals filling almost the entire right coronary system with moderate LAD disease noted with transfer to tertiary facility for consideration CABG with eventually PCI performed. Continued on aspirin, Plavix, metoprolol, statin therapy. Cardiac enzyme trending with initial 0.124-> 0.086-> 0.079-> 0.067. 3. 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 Patient would continue then to have dialysis at the skilled facility if precertification obtained if discharge ability 03/31/20 otherwise may need HD 04/01/20 prior to leaving. 4. AOCD: Admission hemoglobin 8.6, similar to baseline, anemia of chronic disease associated with end-stage renal disease, defer treatments to nephrology, consulted, 03/26/2020 hemoglobin 9.1-->03/30/20 Hgb 9.4. 5. History of 2nd AVB: s/p pacemaker placement, 03/29/20 noted atypical noted spike during T, normal evaluation 12/2019, will request repeat evaluation 03/31/20 likely. patient with recent interrogation during prior presentation without marked finding. 6. Diabetes mellitus type II: Hold oral home regimen, continue home insulin regimen, ADA diet, accu checks w/ ISS. 7. Hypertension: Continue home regimen including metoprolol with hold parameters, PRN hydralazine. 8. Hyperlipidemia: Continue home statin regimen. 9. Hypothyroidism: Continue home synthroid regimen. 10. DVT prophylaxis: SCDs, Lovenox. 11. Code Status: DNR-CCA, no intubation. contacted and updated on his status as well as plan of care. Inpatient E&M: 23036 Subs Hosp L2
[2020-03-30 08:26] LABS: Bedside Glucose 150 mg/dL (70-110)
[2020-03-30] MEDS: Enoxaparin 30 MG/0.3 ML Syringe SC (10:03)
[2020-03-30] MEDS: dexAMETHasone 4 MG Tablet 6 MG PO (10:03)
[2020-03-30] MEDS: Polyethylene Glycol 3350 17 GM PACKET PO (10:03)
[2020-03-30] MEDS: Pravastatin 80 MG Tablet PO (10:04)
[2020-03-30] MEDS: Clopidogrel Bisulfate 75 MG Tablet PO (10:04)
[2020-03-30] MEDS: Folic Acid/Vitamin B Comp W-C 1 Capsule 1 CAP PO (10:04)
[2020-03-30] MEDS: Metoprolol Tartrate 25 MG Tablet 12.5 MG PO ×2 (10:05→19:46)
[2020-03-30] MEDS: Midodrine HCl 5 MG Tablet PO ×3 (10:05→17:29)
[2020-03-30] MEDS: Calcium Acetate 667 MG Capsule 1334 MG PO (10:05)
[2020-03-30] MEDS: Levothyroxine 175 MCG Tablet PO (10:05)
[2020-03-30] MEDS: Aspirin E.C. 81 MG Tablet PO (10:06)
--- NOTE | 2020-03-30 15:13 | NURSING ---
This nurse spoke with Lewis Rn supervisor painting informed him that pt needs a pace maker check per orders and explained to reason for it. Lewis Mclaughlin Bag Valver states the Pacer maker will be checked tomorrow as long as order is in. Order from Dr. Mendoza in the computer. Dr. Mendoza is aware that pacemaker sometimes fires off in the T wave and sometimes does not.
[2020-03-30 15:46] LABS: Bedside Glucose 215 mg/dL (70-110)
[2020-03-30 17:11] LABS: Bedside Glucose 278 mg/dL (70-110)
[2020-03-30 21:45] LABS: Bedside Glucose 338 mg/dL (70-110)
[2020-03-31] VITALS (14 sets, daily range): BP systolic 107–140; BP diastolic 51–64; PULSE 60–66; RESP 16–18; TEMP 35.6–36.9; O2SAT 95–97
[2020-03-31] MEDS: Insulin Lispro 100 UNIT/ML INSULN.PEN SC ×4 (06:05→20:22)
[2020-03-31 06:20] LABS: Bedside Glucose 169 mg/dL (70-110)
[2020-03-31 06:41] LABS: Absolute Lymphocyte Count 1.51 X10^3/uL (0.83-4.51); Absolute Neutrophil Count 4.3 X10^3/uL (2.0-7.7); Basophil# 0.02 X10^3/uL; Basophil% 0.3 % (0-1); Hematocrit 41.2 % (40-54); Hemoglobin 11.7 g/dL (13.0-16.5); Lymphocyte # 1.51 X10^3/ul (4.0); Lymphocyte % 23.7 % (19-41); Mean Corp Hgb Conc 28.4 g/dL (32-36); Mean Corpuscular Hgb 29.5 pg (27.0-32.0); Mean Platelet Vol. 10.9 fl (6.2-12.0); Monocyte# 0.44 X10^3/uL; Monocyte% 6.9 % (0-10); NRBC Flagged by Analyzer 0.3 % (0-5); Neutrophil # 4.33 X10^3/uL (2.7-7.7); Neutrophil % 67.8 % (47-70); POSITIVE MORPHOLOGY YES; Platelet Count 142 K/mm3 (150-450); RBC Distribution Width CV 15.1 % (11.6-14.6); RBC Distribution Width SD 58.4 fl (35.1-43.9); Red Blood Count 3.96 M/mm3 (4.6-6.2); White Blood Count 6.4 K/mm3 (4.4-11.0)
[2020-03-31 06:42] LABS: Differential Indicated SCAN CRITERIA MET
[2020-03-31 07:00] LABS: Differential Comment SCANNED
[2020-03-31 07:15] LABS: ALB/GLOB Ratio 0.7 RATIO (0.9-2.4); AST(SGOT) 31 U/L (15-37); Alanine Aminotransfer ALT/SGPT 28 U/L (16-61); Albumin, Serum 2.6 g/dL (3.2-5.0); Alkaline Phosphatase 60 U/L (45-117); Anion Gap 13 (5-15); BUN 54 mg/dL (7-18); BUN/Creat Ratio 11.1 RATIO (10-20); Calcium,Total 7.6 mg/dL (8.5-10.1); Chloride 105 mmol/L (98-107); Creatinine, Serum 4.86 mg/dL (0.70-1.30); EST Glomerular Filtration Rate 12 mL/min (>60); Est Glom Filt Rate - Afr Amer 15 mL/min (>60); Estimated Creatinine Clearance 11.92 ml/min; Globulin 3.7 g/dL (2.2-4.2); Glucose 174 mg/dL (74-106); Potassium 5.4 mmol/L (3.5-5.1); Protein, Total 6.3 g/dL (6.4-8.2); Sodium Level 136 mmol/L (136-145)
--- NOTE | 2020-03-31 08:03 | NURSING ---
notified geoff of need for pacer check
[2020-03-31 08:25] LABS: HEPATITIS B SURFACE AG Negative (Negative); Hepatitis A AB, Total Negative (Negative); Hepatitis A IgM Antibody Negative (Negative); Hepatitis B Core AB IgM Negative (Negative); Hepatitis B Core Ab Total Negative (Negative); Hepatitis C Ab <0.1 s/co ratio (0.0-0.9)
[2020-03-31 08:27] LABS: Hep B Surface Antibodies Non Reactive (.)
[2020-03-31] MEDS: Enoxaparin 30 MG/0.3 ML Syringe SC (09:09)
[2020-03-31] MEDS: Folic Acid/Vitamin B Comp W-C 1 Capsule 1 CAP PO (09:09)
[2020-03-31] MEDS: Pravastatin 80 MG Tablet PO (09:09)
[2020-03-31] MEDS: Clopidogrel Bisulfate 75 MG Tablet PO (09:09)
[2020-03-31] MEDS: Polyethylene Glycol 3350 17 GM PACKET PO (09:09)
[2020-03-31] MEDS: Levothyroxine 175 MCG Tablet PO (09:09)
[2020-03-31] MEDS: Metoprolol Tartrate 25 MG Tablet 12.5 MG PO ×2 (09:10→20:21)
[2020-03-31] MEDS: Calcium Acetate 667 MG Capsule 1334 MG PO (09:10)
[2020-03-31] MEDS: Midodrine HCl 5 MG Tablet PO ×2 (09:11→17:00)
[2020-03-31] MEDS: dexAMETHasone 4 MG Tablet 6 MG PO (09:11)
[2020-03-31] MEDS: Aspirin E.C. 81 MG Tablet PO (09:11)
[2020-03-31] MEDS: Menthol/Lanolin/Calamine/Znox 113 GM Tube 1 APPLIC TOPICAL ×2 (09:12→20:23)
--- NOTE | 2020-03-31 09:30 | PCM.PN.REN ---
Patient Problems: Active and Suspected Problems (Last Reviewed 03/25/20 @ 02:[address] Priynak Tate MD) Pneumonia (Acute) Debility (Acute) COVID-19 (Acute) SARS (severe acute respiratory syndrome) (Acute) Subjective: No acute complaints - Physical Exam Vitals/I&O's: Vital Signs Temp Pulse Resp BP Pulse Ox 96.0 F L 66 18 112/53 L 96 03/31/20 09:08 03/31/20 09:10 03/31/20 09:08 03/31/20 09:08 03/31/20 09:08 Oxygen Flow Rate (L/min) 3 Oxygen Delivery Method Room Air Weight: 109.5 kg Body Mass Index (BMI) 37.4 Finger Stick Blood Glucose 124 Intake and Output for Last 24 Hours 03/29/20 03/30/20 03/31/20 23:59 23:59 23:59 Intake Total 1220 / 1470 650 / 950 540 / 540 Output Total 2600 / 2600 Balance 1220 / 1470 -1950 / -1650 540 / 540 General: Alert, Oriented x3 HEENT: Atraumatic Neck: Supple, No JVD Lungs: Clear to auscultation Cardiovascular: Regular rate, Regular Rhythm, Normal S1, Normal S2 Abdomen: Bowel Sounds Present, Soft Extremities: No edema Skin: No rashes Microbiology Past 72 Hours 03/24/20 21:15 Blood Culture (Wb) - Right Hand Blood Culture - Final No growth in 5 days. 03/24/20 21:24 Blood Culture (Wb) - Right Forearm Blood Culture - Final No growth in 5 days. Laboratory Results 03/29/20 07:55: Hepatitis A IgM Ab Negative, Hepatitis A Ab Total Negative, Hep Bs Antigen Negative, Hep B Core Total Ab Negative, Hep B Core IgM Ab Negative, Hepatitis C Ab Confirm <0.1, Hep C Confirm Com 1 Comment 03/30/20 11:10: POC Glucose 215 H 03/30/20 15:47: POC Glucose 278 H 03/30/20 19:45: POC Glucose 338 H 03/31/20 05:48: WBC 6.4, RBC 3.96 L, Hgb 11.7 L, Hct 41.2, MCV 104.0 H D, MCH 29.5, MCHC 28.4 L D, RDW Std Deviation 58.4 H, RDW Coeff of Renan 15.1 H, Plt Count 142 L, MPV 10.9, Immature Gran % (Auto) 1.300 H, Neut % (Auto) 67.8, Lymph % (Auto) 23.7, [place] % (Auto) 6.9, Eos % (Auto) 0.0, Baso % (Auto) 0.3, Absolute Neuts (auto) 4.3, Absolute Lymphs (auto) 1.51, Nucleated RBC % 0.3, Differential Comment SCANNED 03/31/20 05:48: Sodium 136, Potassium 5.4 H, Chloride 105, Carbon Dioxide 18.0 L, Anion Gap 13, BUN 54 H, Creatinine 4.86 H, Estim Creat Clear Calc 11.92, Est GFR (MDRD) Af Amer 15 L, Est GFR (MDRD) Non-Af 12 L, BUN/Creatinine Ratio 11.1, Glucose 174 H, Calcium 7.6 L, Total Bilirubin 0.50, AST 31, ALT 28, Alkaline Phosphatase 60, Total Protein 6.3 L, Albumin 2.6 L, Globulin 3.7, Albumin/Globulin Ratio 0.7 L 03/31/20 06:04: POC Glucose 169 H Current Medications Acetaminophen (Acetaminophen 325 Mg Tablet) 650 mg PO Q6H PRN PRN PRN Reason: Pain Score 1-10/Temp > 100.7 F Albuterol Sulfate (Albuterol Ih 8.5 Gm (Proair) Inhaler (200 Puffs)) 2 puff INHALATION Q4H PRN PRN PRN Reason: SOB/WHEEZING Aspirin (Aspirin E.C. 81 Mg Tablet) 81 mg PO DAILY@0800 [facility] Last Admin: 03/31/20 09:11 Dose: 81 mg Documented by: Calamine/Phenol (Menthol/Lanolin/Calamine/Znox 113 Gm Tube) 1 applic TOPICAL BID [facility]; Protocol Last Admin: 03/31/20 09:12 Dose: 1 applicatio Documented by: Calcium Acetate (Calcium Acetate 667 Mg Capsule) 1,334 mg PO BREAKFAST [facility] Last Admin: 03/31/20 09:10 Dose: 1,334 mg Documented by: Clopidogrel Bisulfate (Clopidogrel Bisulfate 75 Mg Tablet) 75 mg PO DAILY [facility] Last Admin: 03/31/20 09:09 Dose: 75 mg Documented by: Dexamethasone (Dexamethasone 4 Mg Tablet) 6 mg PO DAILY [facility] Last Admin: 03/31/20 09:11 Dose: 6 mg Documented by: Dextrose (Dextrose 50%-Water 25 Gm/50 Ml Disp.Syrin) 0 gm IV X1 PRN; Protocol PRN Reason: Hypoglycemia Enoxaparin Sodium (Enoxaparin 30 Mg/0.3 Ml Syringe) 30 mg SC DAILY [facility] Last Admin: 03/31/20 09:09 Dose: 30 mg Documented by: Glucagon (Glucagon 1 Mg/Ml Syringe) 1 mg IM .X1 PRN PRN Reason: Hypoglycemia Guaifenesin (Guaifenesin 10 Ml Udc (200mg/10ml)) 10 ml PO Q4H PRN PRN PRN Reason: COUGH Sodium Chloride () 250 mls @ 15 mls/hr IV .[id number] PRN PRN Reason: Saline Flush Insulin Glargine (Insulin Glargine 100 Units/Ml Pen) 10 units SC QHS [facility] Last Admin: 03/30/20 19:47 Dose: 10 u Documented by: Insulin Human Lispro (Insulin Lispro 100 Unit/Ml Insuln.Pen) [facility]; Protocol Last Admin: 03/31/20 06:05 Dose: 1 units Documented by: Latanoprost (Latanoprost 0.005% 1 Bottle) 1 drop EACH EYE QHS [facility] Last Admin: 03/30/20 19:54 Dose: 1 drop Documented by: Levothyroxine Sodium (Levothyroxine 175 Mcg Tablet) 175 mcg PO DAILY [facility] Last Admin: 03/31/20 09:09 Dose: 175 mcg Documented by: Loperamide HCl (Loperamide 2 Mg Capsule) 2 mg PO Q2H PRN PRN Reason: DIARRHEA/LOOSE STOOLS Last Admin: 03/25/20 12:57 Dose: 2 mg Documented by: Melatonin (Melatonin 3 Mg Tablet) 3 mg PO QHS PRN PRN PRN Reason: INSOMNIA Last Admin: 03/30/20 03:06 Dose: 3 mg Documented by: Metoprolol Tartrate (Metoprolol Tartrate 25 Mg Tablet) 12.5 mg PO BID [facility] Last Admin: 03/31/20 09:10 Dose: 12.5 mg Documented by: Midodrine (Midodrine Hcl 5 Mg Tablet) 5 mg PO TIDCM [facility] Last Admin: 03/31/20 09:11 Dose: 5 mg Documented by: Multivit/Ca Carb/B Cmplx/FA/Prenat (Folic Acid/Vitamin B Comp W-C 1 Capsule) 1 capsule PO DAILY [facility] Last Admin: 03/31/20 09:09 Dose: 1 capsule Documented by: Ondansetron HCl (Ondansetron 4 Mg/2 Ml Vial) 4 mg IV Q8H PRN PRN PRN Reason: NAUSEA/VOMITING Polyethylene Glycol (Polyethylene Glycol 3350 17 Gm Packet) 17 gm PO DAILY [facility] Last Admin: 03/31/20 09:09 Dose: 17 gm Documented by: Pravastatin Sodium (Pravastatin 80 Mg Tablet) 80 mg PO DAILY [facility] Last Admin: 03/31/20 09:09 Dose: 80 mg Documented by: Sodium Chloride (0.9% Saline Lock 10 Ml Syringe) 10 - 40 ml IV UD PRN PRN Reason: SALINE FLUSH Last Admin: 03/29/20 08:45 Dose: 10 ml Documented by: Tamsulosin HCl (Tamsulosin Hcl 0.4 Mg Capsule) 0.4 mg PO QHS [facility] Last Admin: 03/30/20 19:46 Dose: 0.4 mg Documented by: Medical Necessity - Tobacco Use Smoking Status: Never smoker Tobacco Use: Non-smoker Assessment/Plan All Active Problems (Last Reviewed 03/25/20 @ 02:[address] Priyank Tate MD) Pneumonia (Acute) Debility (Acute) COVID-19 (Acute) SARS (severe acute respiratory syndrome) (Acute) Nephrolithiasis (Resolved) 1. ESRD. HD TTS. No HD needed today. Next HD Tuesday 2. Anemia. Continue JOSE with HD. 3. SHPT. Continue calcium acetate with meals. Will check Ca/P as outpt. 4. COVID19 infection. On dexamethasone. Clinically improving.
--- NOTE | 2020-03-31 09:59 | NURSING ---
SPOKE W/ZAHIDA FROM [employer]. HE SUGGESTS PTS PACER COULD USE A REPROGRAMMING AND STAFF WILL BE HERE TODAY THAT COULD DO THIS. COMMUNICATION SENT TO DR VILLARREAL TO CALL THIS NURSE
--- NOTE | 2020-03-31 10:03 | NURSING ---
Yoselin called regarding pacer check. She states that the pacemaker is working fine. Patient is in his own intrinsic HR. She suggested turning off the pacer function on the monitor car operator. Georgia Levin RN made aware of same. Pacer function will remain turned on on the cardiac monitoring out at the desk.
--- NOTE | 2020-03-31 10:22 | CASEMGMT ---
Addendum entered by Miguel A Tovar 03/31/20 11:25: call to Marek to update on information faxed. He is processing. Trice PÉREZ Original Note: ANNIE REDDY Note: Call received from nurse Betzy @ [facility] requesting updated information on the COVID testing. Hep panel and Covid results from [facility] were faxed. -above information also faxed to Jarvis @ [facility]. Trice PÉREZ
[2020-03-31 11:41] LABS: Bedside Glucose 256 mg/dL (70-110)
--- NOTE | 2020-03-31 12:22 | CASEMGMT ---
Addendum entered by Ebonie Maxwell 03/31/20 14:40: called in to ask if she should bring in pt's c-renetta from home. SW called , SW explained that we are still waiting for precert, and SW asked about Cpapp. explains pt has only been on C-renetta for a week before being hospitalized, and it would be difficult to get the C-renetta here. SW explained will ask pt if he wants it, and if so can talk to the [facility] about renting it. Pt's C-renetta is from [facility] in [place]. SW called pt in room, he would like to use C-renetta at the [facility]. SW also explained to pt that we are still waiting for precert, pt states understanding. SW called [facility] in [place], pt's C-renetta is at 12. SW called Annamaria at [facility], they can order the C-renetta, SW told her the settings. SW will continue to follow. SILVANA Blanco Original Note: Pt is all set for dialysis. WINDY faxed updates to [facility], spoke w/Annamaria in marketing. The updates were received and they will start precert. SILVANA Blanco
--- NOTE | 2020-03-31 12:23 | CASEMGMT ---
Addendum entered by Miguel A Tovar 03/31/20 14:00: Call received from Edmond Conley. Patient's first dialysis will be @ [facility] on Tuesday and 2 pm . He will be on a MWF schedule. Original Note: ANNIE REDDY Note: call from Betzy @ Edmond @ [facility] in [place]. The dialysis physician has approved the patient for dialysis @ the [facility]. Ok to start insurance precert for the SNF. Jael TEMPLE updated and will have insurance precert started by facility. Trice LEEN RN ACM
--- NOTE | 2020-03-31 13:21 | CT_ITS ---
STUDY: CT BRAIN WITHOUT CONTRAST REASON FOR EXAM: Male, 80 years old. ALTERED MENTAL STATUS, +COVID RADIATION DOSAGE (If Supplied By Facility): CTDIvol = ( 44.99 ) mGy, DLP = ( 762.36 ) mGycm TECHNIQUE: Transaxial CT imaging of the brain was performed without administration of intravenous contrast material. Individualized dose optimization techniques were used for this CT. COMPARISON: Comparison is made with prior study dated 07/23/2015. FINDINGS: Normal soft tissue structures. Normal calvarium. There is moderate cerebral atrophy with widening of the extra-axial spaces and ventricular dilatation. There are areas of decreased attenuation within the white matter tracts of the supratentorial brain, consistent with microvascular disease changes. Lacunar infarcts in both basal ganglia more prominent on the right side. Normal brainstem. Normal cerebellum. There is no intracranial hemorrhage. There are no findings of an acute ischemic infarction. Normal visualized paranasal sinuses. CT/Brain/Head without Contrast IMPRESSION: Chronic involutional changes of the brain. 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 Electronically Signed: Norberto Johnston, at 14:22 EST , Service support ,
--- NOTE | 2020-03-31 14:03 | NURSING ---
Off unit to CT scan.
--- NOTE | 2020-03-31 14:13 | PN_ITS ---
Patient Problems: Active and Suspected Problems (Last Reviewed 03/25/20 @ 02:[address] Priyank Tate MD) Pneumonia (Acute) Debility (Acute) COVID-19 (Acute) SARS (severe acute respiratory syndrome) (Acute) Subjective: Patient was seen and examined today, he is not able to tell me why he is in the hospital and he is not able to tell me what his discharge plans are at this time. I have confirmed with nursing and case management that he has been told that he is going to be transferred to a [facility] facility for rehab s ervices. I talked with his by phone today, his states that he is forgetful at times but he still pays his own bills and drives independently. Patient does not appear to be in any respiratory distress and has no complaints of any fever, chills, or chest discomfort. - Physical Exam Vitals/I&O's: Vital Signs Temp Pulse Resp BP Pulse Ox 96.0 F L 66 18 112/53 L 96 03/31/20 09:08 03/31/20 09:10 03/31/20 09:08 03/31/20 09:08 03/31/20 09:08 Oxygen Flow Rate (L/min) 3 Oxygen Delivery Method Room Air Weight: 109.5 kg Body Mass Index (BMI) 37.4 Finger Stick Blood Glucose 124 Intake and Output for Last 24 Hours 03/29/20 03/30/20 03/31/20 23:59 23:59 23:59 Intake Total 1220 / 1470 650 / 950 540 / 540 Output Total 2600 / 2600 Balance 1220 / 1470 -1950 / -1650 540 / 540 General: Alert, Cooperative, No apparent distress, Well developed, - - Patient is oriented as to self and place HEENT: Atraumatic, PERRLA, EOMI, Normocephalic Oral: Moist Mucosa Neck: Supple, No JVD, Trachea Midline, Thyroid Normal Size and Texture Lungs: Clear to auscultation, Normal air movement, No rhonchi, No wheeze, No rales Cardiovascular: Regular rate, Regular Rhythm, Normal S1, Normal S2, No murmurs, PMI Normal, No rub noted Abdomen: Bowel Sounds Present, Soft, Non Tender, Non-Distended Extremities: No clubbing, No cyanosis, No edema, Capillary Refill Less than 3 Seconds Skin: No rashes, No breakdown Musculoskeletal: No Tenderness to Palpation of Joints or Extremities Neurological: Cranial nerves II-XII grossly intact, Neuro grossly intact, Sensory exam intact to light touch and pain Psych/Mental Status: Flat Affect, - - Patient is able to answer some simple questions appropriately Microbiology Past 72 Hours 03/24/20 21:15 Blood Culture (Wb) - Right Hand Blood Culture - Final No growth in 5 days. 03/24/20 21:24 Blood Culture (Wb) - Right Forearm Blood Culture - Final No growth in 5 days. Laboratory Results 03/29/20 07:55: Hepatitis A IgM Ab Negative, Hepatitis A Ab Total Negative, Hep Bs Antigen Negative, Hep B Core Total Ab Negative, Hep B Core IgM Ab Negative, Hepatitis C Ab Confirm <0.1, Hep C Confirm Com 1 Comment 03/30/20 11:10: POC Glucose 215 H 03/30/20 15:47: POC Glucose 278 H 03/30/20 19:45: POC Glucose 338 H 03/31/20 05:48: WBC 6.4, RBC 3.96 L, Hgb 11.7 L, Hct 41.2, MCV 104.0 H D, MCH 29.5, MCHC 28.4 L D, RDW Std Deviation 58.4 H, RDW Coeff of Renan 15.1 H, Plt Count 142 L, MPV 10.9, Immature Gran % (Auto) 1.300 H, Neut % (Auto) 67.8, Lymph % (Auto) 23.7, [place] % (Auto) 6.9, Eos % (Auto) 0.0, Baso % (Auto) 0.3, Absolute Neuts (auto) 4.3, Absolute Lymphs (auto) 1.51, Nucleated RBC % 0.3, Differential Comment SCANNED 03/31/20 05:48: Sodium 136, Potassium 5.4 H, Chloride 105, Carbon Dioxide 18.0 L , Anion Gap 13, BUN 54 H, Creatinine 4.86 H, Estim Creat Clear Calc 11.92, Est GFR (MDRD) Af Amer 15 L, Est GFR (MDRD) Non-Af 12 L, BUN/Creatinine Ratio 11.1, Glucose 174 H, Calcium 7.6 L, Total Bilirubin 0.50, AST 31, ALT 28, Alkaline Phosphatase 60, Total Protein 6.3 L, Albumin 2.6 L, Globulin 3.7, Albumin/Globulin Ratio 0.7 L 03/31/20 06:04: POC Glucose 169 H 03/31/20 11:27: POC Glucose 256 H Current Medications Acetaminophen (Acetaminophen 325 Mg Tablet) 650 mg PO Q6H PRN PRN PRN Reason: Pain Score 1-10/Temp > 100.7 F Albuterol Sulfate (Albuterol Ih 8.5 Gm (Proair) Inhaler (200 Puffs)) 2 puff INHALATION Q4H PRN PRN PRN Reason: SOB/WHEEZING Aspirin (Aspirin E.C. 81 Mg Tablet) 81 mg PO DAILY@0800 [facility] Last Admin: 03/31/20 09:11 Dose: 81 mg Documented by: Calamine/Phenol (Menthol/Lanolin/Calamine/Znox 113 Gm Tube) 1 applic TOPICAL BID [facility]; Protocol Last Admin: 03/31/20 09:12 Dose: 1 applicatio Documented by: Calcium Acetate (Calcium Acetate 667 Mg Capsule) 1,334 mg PO BREAKFAST [facility] Last Admin: 03/31/20 09:10 Dose: 1,334 mg Documented by: Clopidogrel Bisulfate (Clopidogrel Bisulfate 75 Mg Tablet) 75 mg PO DAILY [facility] Last Admin: 03/31/20 09:09 Dose: 75 mg Documented by: Dexamethasone (Dexamethasone 4 Mg Tablet) 6 mg PO DAILY [facility] Last Admin: 03/31/20 09:11 Dose: 6 mg Documented by: Dextrose (Dextrose 50%-Water 25 Gm/50 Ml Disp.Syrin) 0 gm IV X1 PRN; Protocol PRN Reason: Hypoglycemia Enoxaparin Sodium (Enoxaparin 30 Mg/0.3 Ml Syringe) 30 mg SC DAILY [facility] Last Admin: 03/31/20 09:09 Dose: 30 mg Documented by: Glucagon (Glucagon 1 Mg/Ml Syringe) 1 mg IM .X1 PRN PRN Reason: Hypoglycemia Guaifenesin (Guaifenesin 10 Ml Udc (200mg/10ml)) 10 ml PO Q4H PRN PRN PRN Reason: COUGH Sodium Chloride () 250 mls @ 15 mls/hr IV .[id number] PRN PRN Reason: Saline Flush Insulin Glargine (Insulin Glargine 100 Units/Ml Pen) 10 units SC QHS [facility] Last Admin: 03/30/20 19:47 Dose: 10 u Documented by: Insulin Human Lispro (Insulin Lispro 100 Unit/Ml Insuln.Pen) 0 unit SC ACHS [facility]; Protocol Last Admin: 03/31/20 11:28 Dose: 3 units Documented by: Latanoprost (Latanoprost 0.005% 1 Bottle) 1 drop EACH EYE QHS [facility] Last Admin: 03/30/20 19:54 Dose: 1 drop Documented by: Levothyroxine Sodium (Levothyroxine 175 Mcg Tablet) 175 mcg PO DAILY [facility] Last Admin: 03/31/20 09:09 Dose: 175 mcg Documented by: Loperamide HCl (Loperamide 2 Mg Capsule) 2 mg PO Q2H PRN PRN Reason: DIARRHEA/LOOSE STOOLS Last Admin: 03/25/20 12:57 Dose: 2 mg Documented by: Melatonin (Melatonin 3 Mg Tablet) 3 mg PO QHS PRN PRN PRN Reason: INSOMNIA Last Admin: 03/30/20 03:06 Dose: 3 mg Documented by: Metoprolol Tartrate (Metoprolol Tartrate 25 Mg Tablet) 12.5 mg PO BID [facility] Last Admin: 03/31/20 09:10 Dose: 12.5 mg Documented by: Midodrine (Midodrine Hcl 5 Mg Tablet) 5 mg PO TIDCM [facility] Last Admin: 03/31/20 09:11 Dose: 5 mg Documented by: Multivit/Ca Carb/B Cmplx/FA/Prenat (Folic Acid/Vitamin B Comp W-C 1 Capsule) 1 capsule PO DAILY [facility] Last Admin: 03/31/20 09:09 Dose: 1 capsule Documented by: Ondansetron HCl (Ondansetron 4 Mg/2 Ml Vial) 4 mg IV Q8H PRN PRN PRN Reason: NAUSEA/VOMITING Polyethylene Glycol (Polyethylene Glycol 3350 17 Gm Packet) 17 gm PO DAILY [facility] Last Admin: 03/31/20 09:09 Dose: 17 gm Documented by: Pravastatin Sodium (Pravastatin 80 Mg Tablet) 80 mg PO DAILY [facility] Last Admin: 03/31/20 09:09 Dose: 80 mg Documented by: Sodium Chloride (0.9% Saline Lock 10 Ml Syringe) 10 - 40 ml IV UD PRN PRN Reason: SALINE FLUSH Last Admin: 03/29/20 08:45 Dose: 10 ml Documented by: Tamsulosin HCl (Tamsulosin Hcl 0.4 Mg Capsule) 0.4 mg PO QHS [facility] Last Admin: 03/30/20 19:46 Dose: 0.4 mg Documented by: Medical Necessity - Tobacco Use Smoking Status: Never smoker Tobacco Use: Non-smoker Assessment/Plan All Active Problems (Last Reviewed 03/25/20 @ 02:[address] Priyank Tate MD) Pneumonia (Acute) Debility (Acute) COVID-19 (Acute) SARS (severe acute respiratory syndrome) (Acute) Nephrolithiasis (Resolved) #1 COVID-19 pneumonia-patient is currently on room air and does not appear to be in any respiratory distress #2 end-stage renal disease on dialysis #3 coronary artery disease-status post stent placement at [facility] February 2020 #4 anemia of chronic renal disease #5 type 2 diabetes #6 essential hypertension #7 hyperlipidemia #8 cognitive impairment-etiology unclear at this point, I have decided to order CT of the head to rule out any possibility of a stroke. Patient has a pacemaker and I do not feel it is necessary to get an MRI scan. #9 hypoxia secondary to #1-resolved at this time We are currently awaiting approval for short-term [facility] facility placement. Inpatient E&M: [id number] Subs Hosp L2
[2020-03-31 16:35] LABS: Bedside Glucose 345 mg/dL (70-110)
[2020-03-31] MEDS: Tamsulosin HCl 0.4 MG Capsule PO (20:21)
[2020-03-31] MEDS: Latanoprost 0.005% 1 Bottle 1 DRP EACH EYE (20:23)
[2020-03-31 20:35] LABS: Bedside Glucose 349 mg/dL (70-110)
[2020-04-01] VITALS (15 sets, daily range): BP systolic 102–161; BP diastolic 51–79; PULSE 40–62; RESP 16–18; TEMP 35.2–36.6; O2SAT 95–97
[2020-04-01 06:36] LABS: Bedside Glucose 148 mg/dL (70-110)
[2020-04-01 07:22] LABS: Absolute Lymphocyte Count 0.69 X10^3/uL (0.83-4.51); Absolute Neutrophil Count 4.4 X10^3/uL (2.0-7.7); Basophil# 0.01 X10^3/uL; Basophil% 0.2 % (0-1); Eosinophil# 0.03 X10^3/uL; Eosinophils% 0.5 % (0-5); Hematocrit 29.2 % (40-54); Hemoglobin 9.1 g/dL (13.0-16.5); Lymphocyte # 0.69 X10^3/ul (4.0); Lymphocyte % 11.8 % (19-41); Mean Corp Hgb Conc 31.2 g/dL (32-36); Mean Corpuscular Hgb 31.1 pg (27.0-32.0); Mean Corpuscular Volume 99.7 fL (80-94); Mean Platelet Vol. 9.7 fl (6.2-12.0); Monocyte% 8.6 % (0-10); NRBC Flagged by Analyzer 0.7 % (0-5); Neutrophil # 4.44 X10^3/uL (2.7-7.7); Platelet Count 229 K/mm3 (150-450); RBC Distribution Width CV 16.7 % (11.6-14.6); RBC Distribution Width SD 59.1 fl (35.1-43.9); Red Blood Count 2.93 M/mm3 (4.6-6.2); White Blood Count 5.8 K/mm3 (4.4-11.0)
[2020-04-01 08:02] LABS: ALB/GLOB Ratio 0.8 RATIO (0.9-2.4); AST(SGOT) 21 U/L (15-37); Alanine Aminotransfer ALT/SGPT 32 U/L (16-61); Albumin, Serum 2.7 g/dL (3.2-5.0); Alkaline Phosphatase 62 U/L (45-117); Anion Gap 8 (5-15); BUN 84 mg/dL (7-18); BUN/Creat Ratio 9.9 RATIO (10-20); Calcium,Total 8.7 mg/dL (8.5-10.1); Chloride 98 mmol/L (98-107); Creatinine, Serum 8.46 mg/dL (0.70-1.30); EST Glomerular Filtration Rate 7 mL/min (>60); Est Glom Filt Rate - Afr Amer 8 mL/min (>60); Estimated Creatinine Clearance 6.85 ml/min; Globulin 3.2 g/dL (2.2-4.2); Glucose 138 mg/dL (74-106); Potassium 5.1 mmol/L (3.5-5.1); Protein, Total 5.9 g/dL (6.4-8.2); Sodium Level 135 mmol/L (136-145)
--- NOTE | 2020-04-01 08:02 | NURSING ---
this nurse aware of creatinine 8.46, will notify his nurse and dr johansen
[2020-04-01] MEDS: Aspirin E.C. 81 MG Tablet PO (08:04)
--- NOTE | 2020-04-01 08:04 | PCM.PROGNOTE ---
Patient Problems: Active and Suspected Problems (Last Reviewed 03/25/20 @ 02:[address] Priyank Tate MD) Pneumonia (Acute) Debility (Acute) COVID-19 (Acute) SARS (severe acute respiratory syndrome) (Acute) Subjective: Patient was seen and examined today, he still exhibits mild to moderate confusion, he does not know what year it is but he knows the month and he knows the time of the month. Patient was able to tell me that he had Covid 19, I explained to him that we are awaiting approval for transfer to an extended care facility for inpatient rehab services. Objective: General: Alert, Cooperative, No apparent distress, Well developed, - - Patient is oriented as to self and place and month HEENT: Atraumatic, PERRLA, EOMI, Normocephalic Oral: Moist Mucosa Neck: Supple, No JVD, Trachea Midline, Thyroid Normal Size and Texture Lungs: Clear to auscultation, Normal air movement, No rhonchi, No wheeze, No rales Cardiovascular: Regular rate, Regular Rhythm, Normal S1, Normal S2, No murmurs, PMI Normal, No rub noted Abdomen: Bowel Sounds Present, Soft, Non Tender, Non-Distended Extremities: No clubbing, No cyanosis, No edema, Capillary Refill Less than 3 Seconds Skin: No rashes, No breakdown Musculoskeletal: No Tenderness to Palpation of Joints or Extremities Neurological: Cranial nerves II-XII grossly intact, Neuro grossly intact, Sensory exam intact to light touch and pain Psych/Mental Status: Flat Affect, - - Patient is able to answer some simple questions appropriately - Physical Exam Vitals/I&O's: Vital Signs Temp Pulse Resp BP Pulse Ox 97.5 F L 60 18 161/75 H 96 04/01/20 02:15 04/01/20 04:00 04/01/20 02:15 04/01/20 02:15 04/01/20 02:15 Oxygen Flow Rate (L/min) 3 Oxygen Delivery Method Room Air Weight: 107.4 kg Body Mass Index (BMI) 37.4 Finger Stick Blood Glucose 124 Intake and Output for Last 24 Hours 03/30/20 03/31/20 04/01/20 23:59 23:59 23:59 Intake Total 650 / 950 1190 / 1190 Output Total 2600 / 2600 Balance -1950 / -1650 1190 / 1190 Microbiology Past 72 Hours 03/24/20 21:15 Blood Culture (Wb) - Right Hand Blood Culture - Final No growth in 5 days. 03/24/20 21:24 Blood Culture (Wb) - Right Forearm Blood Culture - Final No growth in 5 days. Laboratory Results 03/29/20 07:55: Hepatitis A IgM Ab Negative, Hepatitis A Ab Total Negative, Hep Bs Antigen Negative, Hep B Core Total Ab Negative, Hep B Core IgM Ab Negative, Hepatitis C Ab Confirm <0.1, Hep C Confirm Com 1 Comment 03/31/20 11:27: POC Glucose 256 H 03/31/20 16:17: POC Glucose 345 H 03/31/20 20:18: POC Glucose 349 H 04/01/20 06:29: POC Glucose 148 H 04/01/20 06:40: WBC 5.8, RBC 2.93 L, Hgb 9.1 L, Hct 29.2 L, MCV 99.7 H, MCH 31.1, MCHC 31.2 L D, RDW Std Deviation 59.1 H, RDW Coeff of Ernan 16.7 H, Plt Count 229, MPV 9.7, Immature Gran % (Auto) 2.900 H, Neut % (Auto) 76.0 H, Lymph % (Auto) 11.8 L, [place] % (Auto) 8.6, Eos % (Auto) 0.5, Baso % (Auto) 0.2, Absolute Neuts (auto) 4.4, Absolute Lymphs (auto) 0.69 L, Nucleated RBC % 0.7 04/01/20 06:40: Sodium 135 L, Potassium 5.1, Chloride 98, Carbon Dioxide 29.0, Anion Gap 8, BUN 84 H, Creatinine 8.46 H*, Estim Creat Clear Calc 6.85, Est GFR (MDRD) Af Amer 8 L, Est GFR (MDRD) Non-Af 7 L, BUN/Creatinine Ratio 9.9 L, Glucose 138 H, Calcium 8.7, Total Bilirubin 0.40, AST 21, ALT 32, Alkaline Phosphatase 62, Total Protein 5.9 L, Albumin 2.7 L, Globulin 3.2, Albumin/Globulin Ratio 0.8 L Current Medications Acetaminophen (Acetaminophen 325 Mg Tablet) 650 mg PO Q6H PRN PRN PRN Reason: Pain Score 1-10/Temp > 100.7 F Albuterol Sulfate (Albuterol Ih 8.5 Gm (Proair) Inhaler (200 Puffs)) 2 puff INHALATION Q4H PRN PRN PRN Reason: SOB/WHEEZING Aspirin (Aspirin E.C. 81 Mg Tablet) 81 mg PO DAILY@0800 [facility] Last Admin: 03/31/20 09:11 Dose: 81 mg Documented by: Calamine/Phenol (Menthol/Lanolin/Calamine/Znox 113 Gm Tube) 1 applic TOPICAL BID [facility]; Protocol Last Admin: 03/31/20 20:23 Dose: 1 applicatio Documented by: Calcium Acetate (Calcium Acetate 667 Mg Capsule) 1,334 mg PO BREAKFAST [facility] Last Admin: 03/31/20 09:10 Dose: 1,334 mg Documented by: Clopidogrel Bisulfate (Clopidogrel Bisulfate 75 Mg Tablet) 75 mg PO DAILY [facility] Last Admin: 03/31/20 09:09 Dose: 75 mg Documented by: Dexamethasone (Dexamethasone 4 Mg Tablet) 6 mg PO DAILY [facility] Last Admin: 03/31/20 09:11 Dose: 6 mg Documented by: Dextrose (Dextrose 50%-Water 25 Gm/50 Ml Disp.Syrin) 0 gm IV X1 PRN; Protocol PRN Reason: Hypoglycemia Enoxaparin Sodium (Enoxaparin 30 Mg/0.3 Ml Syringe) 30 mg SC DAILY [facility] Last Admin: 03/31/20 09:09 Dose: 30 mg Documented by: Glucagon (Glucagon 1 Mg/Ml Syringe) 1 mg IM .X1 PRN PRN Reason: Hypoglycemia Guaifenesin (Guaifenesin 10 Ml Udc (200mg/10ml)) 10 ml PO Q4H PRN PRN PRN Reason: COUGH Sodium Chloride () 250 mls @ 15 mls/hr IV .[id number] PRN PRN Reason: Saline Flush Insulin Glargine (Insulin Glargine 100 Units/Ml Pen) 10 units SC QHS [facility] Last Admin: 03/31/20 20:22 Dose: 10 u Documented by: Insulin Human Lispro (Insulin Lispro 100 Unit/Ml Insuln.Pen) 0 unit SC ACHS [facility]; Protocol Last Admin: 04/01/20 06:36 Dose: Not Given Documented by: Latanoprost (Latanoprost 0.005% 1 Bottle) 1 drop EACH EYE QHS [facility] Last Admin: 03/31/20 20:23 Dose: 1 drop Documented by: Levothyroxine Sodium (Levothyroxine 175 Mcg Tablet) 175 mcg PO DAILY [facility] Last Admin: 03/31/20 09:09 Dose: 175 mcg Documented by: Loperamide HCl (Loperamide 2 Mg Capsule) 2 mg PO Q2H PRN PRN Reason: DIARRHEA/LOOSE STOOLS Last Admin: 03/25/20 12:57 Dose: 2 mg Documented by: Melatonin (Melatonin 3 Mg Tablet) 3 mg PO QHS PRN PRN PRN Reason: INSOMNIA Last Admin: 03/30/20 03:06 Dose: 3 mg Documented by: Metoprolol Tartrate (Metoprolol Tartrate 25 Mg Tablet) 12.5 mg PO BID [facility] Last Admin: 03/31/20 20:21 Dose: 12.5 mg Documented by: Midodrine (Midodrine Hcl 5 Mg Tablet) 5 mg PO TIDCM [facility] Last Admin: 03/31/20 17:00 Dose: 5 mg Documented by: Multivit/Ca Carb/B Cmplx/FA/Prenat (Folic Acid/Vitamin B Comp W-C 1 Capsule) 1 capsule PO DAILY [facility] Last Admin: 03/31/20 09:09 Dose: 1 capsule Documented by: Ondansetron HCl (Ondansetron 4 Mg/2 Ml Vial) 4 mg IV Q8H PRN PRN PRN Reason: NAUSEA/VOMITING Polyethylene Glycol (Polyethylene Glycol 3350 17 Gm Packet) 17 gm PO DAILY [facility] Last Admin: 03/31/20 09:09 Dose: 17 gm Documented by: Pravastatin Sodium (Pravastatin 80 Mg Tablet) 80 mg PO DAILY [facility] Last Admin: 03/31/20 09:09 Dose: 80 mg Documented by: Sodium Chloride (0.9% Saline Lock 10 Ml Syringe) 10 - 40 ml IV UD PRN PRN Reason: SALINE FLUSH Last Admin: 03/29/20 08:45 Dose: 10 ml Documented by: Tamsulosin HCl (Tamsulosin Hcl 0.4 Mg Capsule) 0.4 mg PO QHS [facility] Last Admin: 03/31/20 20:21 Dose: 0.4 mg Documented by: Medical Necessity - Tobacco Use Smoking Status: Never smoker Tobacco Use: Non-smoker Assessment/Plan All Active Problems (Last Reviewed 03/25/20 @ 02:[address] Priyank Tate MD) Pneumonia (Acute) Debility (Acute) COVID-19 (Acute) SARS (severe acute respiratory syndrome) (Acute) Nephrolithiasis (Resolved) #1 COVID-19 pneumonia-patient is currently on room air and does not appear to be in any respiratory distress #2 end-stage renal disease on dialysis, he will have dialysis today #3 coronary artery disease-status post stent placement at [facility] February 2020 #4 anemia of chronic renal disease #5 type 2 diabetes #6 essential hypertension #7 hyperlipidemia #8 cognitive impairment-etiology unclear at this point, CT of the brain yesterday showed 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 Inpatient E&M: 89933 Subs Hosp L2
[2020-04-01] MEDS: Midodrine HCl 5 MG Tablet PO ×2 (08:05→13:12)
[2020-04-01] MEDS: Calcium Acetate 667 MG Capsule 1334 MG PO (08:05)
[2020-04-01] MEDS: 0.9% Saline Lock 10 ML Syringe IV (08:06)
[2020-04-01] MEDS: Menthol/Lanolin/Calamine/Znox 113 GM Tube 1 APPLIC TOPICAL ×2 (08:10→22:13)
[2020-04-01] MEDS: Polyethylene Glycol 3350 17 GM PACKET PO (08:22)
[2020-04-01] MEDS: Metoprolol Tartrate 25 MG Tablet 12.5 MG PO ×2 (08:23→22:05)
[2020-04-01] MEDS: Folic Acid/Vitamin B Comp W-C 1 Capsule 1 CAP PO (08:23)
[2020-04-01] MEDS: Levothyroxine 175 MCG Tablet PO (08:23)
[2020-04-01] MEDS: Enoxaparin 30 MG/0.3 ML Syringe SC (08:24)
[2020-04-01] MEDS: Pravastatin 80 MG Tablet PO (08:26)
[2020-04-01] MEDS: Clopidogrel Bisulfate 75 MG Tablet PO (08:26)
[2020-04-01] MEDS: dexAMETHasone 4 MG Tablet 6 MG PO (08:26)
--- NOTE | 2020-04-01 09:13 | CASEMGMT ---
SW called [facility], spoke w/Annamaria. She will speak w/Carlos as she is in a different building today, and have Carlos let this SW know if precert has been attained. SILVANA Blanco
--- NOTE | 2020-04-01 09:17 | PN.RENAL_ITS ---
Patient Problems: Active and Suspected Problems (Last Reviewed 03/25/20 @ 02:[address] Priyank Tate MD) Pneumonia (Acute) Debility (Acute) COVID-19 (Acute) SARS (severe acute respiratory syndrome) (Acute) Subjective: Not seen or examined today to limit exposure to COVID-19 and to preserve PPE hospitalist note reviewed. patient still with some confusion. On RA - Physical Exam Vitals/I&O's: Vital Signs Temp Pulse Resp BP Pulse Ox 97.9 F 60 16 109/53 L 96 04/01/20 08:15 04/01/20 08:23 04/01/20 08:15 04/01/20 08:15 04/01/20 08:15 Oxygen Flow Rate (L/min) 3 Oxygen Delivery Method Nasal Cannula Weight: 107.4 kg Body Mass Index (BMI) 37.4 Finger Stick Blood Glucose 124 Intake and Output for Last 24 Hours 03/30/20 03/31/20 04/01/20 23:59 23:59 23:59 Intake Total 650 / 950 1190 / 1190 Output Total 2600 / 2600 Balance -1950 / -1650 1190 / 1190 Comment: No physical exam performed due to COVID-19 infection Microbiology Past 72 Hours 03/24/20 21:15 Blood Culture (Wb) - Right Hand Blood Culture - Final No growth in 5 days. 03/24/20 21:24 Blood Culture (Wb) - Right Forearm Blood Culture - Final No growth in 5 days. Laboratory Results 03/31/20 11:27: POC Glucose 256 H 03/31/20 16:17: POC Glucose 345 H 03/31/20 20:18: POC Glucose 349 H 04/01/20 06:29: POC Glucose 148 H 04/01/20 06:40: WBC 5.8, RBC 2.93 L, Hgb 9.1 L, Hct 29.2 L, MCV 99.7 H, MCH 31.1, MCHC 31.2 L D, RDW Std Deviation 59.1 H, RDW Coeff of Renan 16.7 H, Plt Count 229, MPV 9.7, Immature Gran % (Auto) 2.900 H, Neut % (Auto) 76.0 H, Lymph % (Auto) 11.8 L, [place] % (Auto) 8.6, Eos % (Auto) 0.5, Baso % (Auto) 0.2, Absolute Neuts (auto) 4.4, Absolute Lymphs (auto) 0.69 L, Nucleated RBC % 0.7 04/01/20 06:40: Sodium 135 L, Potassium 5.1, Chloride 98, Carbon Dioxide 29.0, Anion Gap 8, BUN 84 H, Creatinine 8.46 H*, Estim Creat Clear Calc 6.85, Est GFR (MDRD) Af Amer 8 L, Est GFR (MDRD) Non-Af 7 L, BUN/Creatinine Ratio 9.9 L, Glucose 138 H, Calcium 8.7, Total Bilirubin 0.40, AST 21, ALT 32, Alkaline Phosphatase 62, Total Protein 5.9 L, Albumin 2.7 L, Globulin 3.2, Albumin/Globulin Ratio 0.8 L Current Medications Acetaminophen (Acetaminophen 325 Mg Tablet) 650 mg PO Q6H PRN PRN PRN Reason: Pain Score 1-10/Temp > 100.7 F Albuterol Sulfate (Albuterol Ih 8.5 Gm (Proair) Inhaler (200 Puffs)) 2 puff INHALATION Q4H PRN PRN PRN Reason: SOB/WHEEZING Aspirin (Aspirin E.C. 81 Mg Tablet) 81 mg PO DAILY@0800 [facility] Last Admin: 04/01/20 08:04 Dose: 81 mg Documented by: Calamine/Phenol (Menthol/Lanolin/Calamine/Znox 113 Gm Tube) 1 applic TOPICAL BID [facility]; Protocol Last Admin: 04/01/20 08:10 Dose: 1 applicatio Documented by: Calcium Acetate (Calcium Acetate 667 Mg Capsule) 1,334 mg PO BREAKFAST [facility] Last Admin: 04/01/20 08:05 Dose: 1,334 mg Documented by: Clopidogrel Bisulfate (Clopidogrel Bisulfate 75 Mg Tablet) 75 mg PO DAILY [facility] Last Admin: 04/01/20 08:26 Dose: 75 mg Documented by: Dexamethasone (Dexamethasone 4 Mg Tablet) 6 mg PO DAILY [facility] Last Admin: 04/01/20 08:26 Dose: 6 mg Documented by: Dextrose (Dextrose 50%-Water 25 Gm/50 Ml Disp.Syrin) 0 gm IV X1 PRN; Protocol PRN Reason: Hypoglycemia Enoxaparin Sodium (Enoxaparin 30 Mg/0.3 Ml Syringe) 30 mg SC DAILY [facility] Last Admin: 04/01/20 08:24 Dose: 30 mg Documented by: Glucagon (Glucagon 1 Mg/Ml Syringe) 1 mg IM .X1 PRN PRN Reason: Hypoglycemia Guaifenesin (Guaifenesin 10 Ml Udc (200mg/10ml)) 10 ml PO Q4H PRN PRN PRN Reason: COUGH Sodium Chloride () 250 mls @ 15 mls/hr IV .[id number] PRN PRN Reason: Saline Flush Insulin Glargine (Insulin Glargine 100 Units/Ml Pen) 10 units SC QHS [facility] Last Admin: 03/31/20 20:22 Dose: 10 u Documented by: Insulin Human Lispro (Insulin Lispro 100 Unit/Ml Insuln.Pen) 0 unit SC [facility]; Protocol Last Admin: 04/01/20 06:36 Dose: Not Given Documented by: Latanoprost (Latanoprost 0.005% 1 Bottle) 1 drop EACH EYE QHS [facility] Last Admin: 03/31/20 20:23 Dose: 1 drop Documented by: Levothyroxine Sodium (Levothyroxine 175 Mcg Tablet) 175 mcg PO DAILY [facility] Last Admin: 04/01/20 08:23 Dose: 175 mcg Documented by: Loperamide HCl (Loperamide 2 Mg Capsule) 2 mg PO Q2H PRN PRN Reason: DIARRHEA/LOOSE STOOLS Last Admin: 03/25/20 12:57 Dose: 2 mg Documented by: Melatonin (Melatonin 3 Mg Tablet) 3 mg PO QHS PRN PRN PRN Reason: INSOMNIA Last Admin: 03/30/20 03:06 Dose: 3 mg Documented by: Metoprolol Tartrate (Metoprolol Tartrate 25 Mg Tablet) 12.5 mg PO BID [facility] Last Admin: 04/01/20 08:23 Dose: 12.5 mg Documented by: Midodrine (Midodrine Hcl 5 Mg Tablet) 5 mg PO TIDCM [facility] Last Admin: 04/01/20 08:05 Dose: 5 mg Documented by: Multivit/Ca Carb/B Cmplx/FA/Prenat (Folic Acid/Vitamin B Comp W-C 1 Capsule) 1 capsule PO DAILY [facility] Last Admin: 04/01/20 08:23 Dose: 1 capsule Documented by: Ondansetron HCl (Ondansetron 4 Mg/2 Ml Vial) 4 mg IV Q8H PRN PRN PRN Reason: NAUSEA/VOMITING Polyethylene Glycol (Polyethylene Glycol 3350 17 Gm Packet) 17 gm PO DAILY [facility] Last Admin: 04/01/20 08:22 Dose: 17 gm Documented by: Pravastatin Sodium (Pravastatin 80 Mg Tablet) 80 mg PO DAILY [facility] Last Admin: 04/01/20 08:26 Dose: 80 mg Documented by: Sodium Chloride (0.9% Saline Lock 10 Ml Syringe) 10 - 40 ml IV UD PRN PRN Reason: SALINE FLUSH Last Admin: 04/01/20 08:06 Dose: 10 ml Documented by: Tamsulosin HCl (Tamsulosin Hcl 0.4 Mg Capsule) 0.4 mg PO QHS [facility] Last Admin: 03/31/20 20:21 Dose: 0.4 mg Documented by: Medical Necessity - Tobacco Use Smoking Status: Never smoker Tobacco Use: Non-smoker Assessment/Plan All Active Problems (Last Reviewed 03/25/20 @ 02:[address] Priyank Tate MD) Pneumonia (Acute) Debility (Acute) COVID-19 (Acute) SARS (severe acute respiratory syndrome) (Acute) Nephrolithiasis (Resolved) 1. ESRD. HD TTS. HD session today . d/w HD nurse 2. Anemia. Continue JOSE with HD. 3. SHPT. Continue calcium acetate with meals. Will check Ca/P as outpt. 4. COVID19 infection. On dexamethasone. Clinically improving.
--- NOTE | 2020-04-01 10:12 | CASEMGMT ---
SW spoke w/Carlos from [facility]. They have not attained precert yet for pt, and pt cannot have dialysis on the day of admission. Pt also is not in the dialysis system at the residential yet, as per Carlos. They will likely not be able to run pt's dialysis tomorrow, even if precert attained today. Therefore, if pt gets precert today, tomorrow or , pt would be able to discharge to [facility] and Carlos is confident pt's dialysis can start there on Tuesday. CM will speak w/nephrology to see if pt gets dialysis today, can it wait until Tuesday for the next run. WINDY will continue to follow. SILVANA Blanco
[2020-04-01] MEDS: Insulin Lispro 100 UNIT/ML INSULN.PEN SC ×3 (13:08→22:09)
[2020-04-01 13:31] LABS: Bedside Glucose 269 mg/dL (70-110)
--- NOTE | 2020-04-01 14:04 | CASEMGMT ---
Addendum entered by Ebonie Maxwell 04/01/20 15:11: SW spoke w/Dr. Damico, he is fine w/pt going to intermediate tomorrow and getting dialysis on Tuesday, is aware pt will be getting dialysis yet today. SILVANA Blanco Original Note: SW called [facility], spoke w/Carlos. He states that they have precert and can start dialysis on Tuesday. SW called nephrology physician to see if pt will be okay to have dialysis Tuesday if he has dialysis today. Message left, if SW does not hear from physician can check w/physician tomorrow. SW called , let her know that precert was attained and it is likely pt will be able to be discharge to the intermediate tomorrow. SW also called pt in the room and let him know that we will likely be able to move him to the intermediate tomorrow. Plan: [facility] on 04/02/20 as long as renal physician states is okay for pt to get dialysis again on Tuesday. SLIVANA Blanco
[2020-04-01 17:51] LABS: Bedside Glucose 173 mg/dL (70-110)
--- NOTE | 2020-04-01 19:40 | DIALYSIS ---
Tx. completed. blood returned. needles pulled. 10 mins hold time. Pt. stable and AxO. NO s/s of distress. Total net UF removed 1300ml, see HD flow sheet on chart.
[2020-04-01] MEDS: Tamsulosin HCl 0.4 MG Capsule PO (22:05)
[2020-04-01] MEDS: Latanoprost 0.005% 1 Bottle 1 DRP EACH EYE (22:17)
[2020-04-01 22:25] LABS: Bedside Glucose 304 mg/dL (70-110)
[2020-04-02] VITALS (7 sets, daily range): BP systolic 104–116; BP diastolic 52–59; PULSE 60–66; RESP 16–20; TEMP 36.4–36.7; O2SAT 96–98
[2020-04-02] MEDS: Midodrine HCl 5 MG Tablet PO ×2 (07:34→11:05)
[2020-04-02] MEDS: Clopidogrel Bisulfate 75 MG Tablet PO (07:34)
[2020-04-02] MEDS: Calcium Acetate 667 MG Capsule 1334 MG PO (07:34)
[2020-04-02] MEDS: dexAMETHasone 4 MG Tablet 6 MG PO (07:34)
[2020-04-02] MEDS: Folic Acid/Vitamin B Comp W-C 1 Capsule 1 CAP PO (07:34)
[2020-04-02] MEDS: Polyethylene Glycol 3350 17 GM PACKET PO (07:34)
[2020-04-02] MEDS: Pravastatin 80 MG Tablet PO (07:35)
[2020-04-02] MEDS: Metoprolol Tartrate 25 MG Tablet 12.5 MG PO (07:35)
[2020-04-02] MEDS: Levothyroxine 175 MCG Tablet PO (07:35)
[2020-04-02] MEDS: Aspirin E.C. 81 MG Tablet PO (07:35)
[2020-04-02 07:37] LABS: Bedside Glucose 135 mg/dL (70-110)
[2020-04-02] MEDS: Heparin Injection 5,000 UNITS/ML Syringe 5000 UNITS SC (07:37)
[2020-04-02] MEDS: Menthol/Lanolin/Calamine/Znox 113 GM Tube 1 APPLIC TOPICAL (07:38)
[2020-04-02 07:40] LABS: Absolute Lymphocyte Count 0.73 X10^3/uL (0.83-4.51); Absolute Neutrophil Count 4.2 X10^3/uL (2.0-7.7); Basophil# 0.01 X10^3/uL; Basophil% 0.2 % (0-1); Eosinophil# 0.06 X10^3/uL; Eosinophils% 1.1 % (0-5); Hematocrit 30.4 % (40-54); Hemoglobin 9.6 g/dL (13.0-16.5); Lymphocyte # 0.73 X10^3/ul (4.0); Mean Corp Hgb Conc 31.6 g/dL (32-36); Mean Corpuscular Hgb 32.1 pg (27.0-32.0); Mean Corpuscular Volume 101.7 fL (80-94); Mean Platelet Vol. 9.8 fl (6.2-12.0); Monocyte# 0.44 X10^3/uL; Monocyte% 7.8 % (0-10); NRBC Flagged by Analyzer 0.5 % (0-5); Neutrophil % 74.9 % (47-70); Platelet Count 229 K/mm3 (150-450); RBC Distribution Width CV 17.5 % (11.6-14.6); RBC Distribution Width SD 61.1 fl (35.1-43.9); Red Blood Count 2.99 M/mm3 (4.6-6.2); White Blood Count 5.6 K/mm3 (4.4-11.0)
[2020-04-02 07:57] LABS: ALB/GLOB Ratio 0.9 RATIO (0.9-2.4); AST(SGOT) 20 U/L (15-37); Alanine Aminotransfer ALT/SGPT 32 U/L (16-61); Albumin, Serum 2.7 g/dL (3.2-5.0); Alkaline Phosphatase 61 U/L (45-117); Anion Gap 7 (5-15); BUN 45 mg/dL (7-18); BUN/Creat Ratio 8.3 RATIO (10-20); Calcium,Total 8.2 mg/dL (8.5-10.1); Chloride 99 mmol/L (98-107); Creatinine, Serum 5.42 mg/dL (0.70-1.30); EST Glomerular Filtration Rate 11 mL/min (>60); Est Glom Filt Rate - Afr Amer 13 mL/min (>60); Estimated Creatinine Clearance 10.69 ml/min; Globulin 3.1 g/dL (2.2-4.2); Glucose 117 mg/dL (74-106); Potassium 4.5 mmol/L (3.5-5.1); Protein, Total 5.8 g/dL (6.4-8.2); Sodium Level 136 mmol/L (136-145)
--- NOTE | 2020-04-02 09:41 | TREXTCAR_ITS ---
- Diet 03/25/20 15:49 Diet: 1800 ADA DIET - Routine Orders/Code Status Routine Lab Work: - - FINGERSTICK BLOOD SUGARS ACQHS, COVERAGE WITH HUMALOG SQ PER PROTOCOL: 200-250: 5 UNITS, 251-300: 10 UNITS, 301-351: 12 UNITS [facility] NO INT[facility] - Wound(s) bilateral buttocks Wound Type: Pressure Injury RLE Wound Type: Abrasion - Therapies Physical Therapy: Eval and Treat Occupational Therapy: Eval and Treat - Problem/Diagnosis (1) Debility Status: Acute (2) COVID-19 Status: Acute (3) Atherosclerosis of coronary artery of [place] heart without angina pectoris Status: Chronic Comment: PTCA/MARTINA to LCx/OM 1 on 02/21/2020 at [facility]; (4) ESRD (end stage renal disease) on dialysis Status: Chronic (5) Essential hypertension Status: Chronic - Allergies/Procedures Done in Hospital Allergies/Adverse Reactions: Allergies Penicillins [PCN] Allergy (Verified 03/24/20 23:01) Unknown STATES FATHER WAS, NEVER HAS BEEN GIVEN MEDICATION atorvastatin calcium [From Lipitor] Adverse Reaction (Verified 03/24/20 23:01) muscular aches METAL Allergy (Uncoded 02/18/20 15:26) Rash Procedures: Dialysis - Type of Care/Length of Stay Estimated LOS: Convalescent Care Less Than 30 days Type of Care Needed: Skilled Rehab Potential: Good Prognosis: Good - Additional Orders/Day of Discharge H&P will serve as current which was dated: 03/25/20 Day of Discharge: 04/02/20 - Dietary and Speech Recommendations Dietitian Recommendations/Changes: Will continue diet as ordered. 120mL Ensure Enlive w/ meals-strawberry - Follow Up Care Primary Care Physician: Teodoro Mckinley MD [Primary Care Provider] -
--- NOTE | 2020-04-02 10:31 | CASEMGMT ---
Social Work Pt is ready for discharge today to [facility]. Orders and 7000 form faxed to SNF and transportation arranged with [facility] for 1300 berry picker via [facility]. Phone call to Carlos at the [facility] and informed of d/c time. Phone call to pt and to pt and updated on d/c. Both agreeable to d/c plan. RN updated. Plan: [facility], berry picker at 1300 today DONNELL Mckeon
[2020-04-02] MEDS: Insulin Lispro 100 UNIT/ML INSULN.PEN SC (11:01)
[2020-04-02 11:15] LABS: Bedside Glucose 281 mg/dL (70-110)
--- NOTE | 2020-04-03 16:02 | PCM.DC.SUM ---
Discharge Date and Diagnosis - Problem List Patient Problems: Active and Suspected Problems (Last Reviewed 03/25/20 @ 02:[address] Priyank Tate MD) Pneumonia (Acute) Debility (Acute) COVID-19 (Acute) SARS (severe acute respiratory syndrome) (Acute) Date of Admission: 03/25/20 Date of Discharge: 04/02/20 - Primary Discharge Diagnosis Acute Problems: Active Problems (Last Reviewed 03/25/20 @ 02:[address] Priyank Tate MD) #1 COVID-19 pneumonia #2 end-stage renal disease on dialysis #3 coronary artery disease #4 anemia of chronic renal disease #5 type 2 diabetes #6 essential hypertension #7 hyperlipidemia #8 cognitive impairment-etiology unclear #9 hypoxia secondary to #1 #10 cerebrovascular disease - Secondary Discharge Diagnosis Chronic Problems: Chronic Problems (Last Reviewed 03/25/20 @ 02:[address] Priyank Tate MD) Chronic anemia (Chronic) History of coronary artery stent placement (Chronic 02/21/20) PTCA/MARTINA to LCx/OM 1 on 02/21/2020 at [facility]; Atherosclerosis of coronary artery of [place] heart without angina pectoris (Chronic) PTCA/MARTINA to LCx/OM 1 on 02/21/2020 at [facility]; ESRD (end stage renal disease) on dialysis (Chronic) Presence of permanent cardiac pacemaker (Chronic 09/27/16) Dual Chamber Pacemaker Implant: 09/27/2016 Essential hypertension (Chronic) Atrioventricular block, second degree (Chronic) Bradycardia, unspecified (Chronic) 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) HLD (hyperlipidemia) (Chronic) Chronic renal failure (Chronic) Hospital Course and Treatment Operations: None Procedures: Dialysis Summary of Care Provided: The patient is a 80 year old M who was seen in the emergency room at [facility] with a chief complaint of generalized weakness and debility. Patient reported diarrhea over the last several days prior to being seen in the emergency room. Patient was noted to be very weak in the emergency room and could not get out of the wheelchair without two-person assistance. Lab obtained in the emergency room showed the patient to have leukopenia with anemia, he had infiltrates on his chest x-ray. He was given IV antibiotics and COVID-19 test resulted positive. He was admitted to [place] [address], he was seen in consultation by nephrology due to the fact he was a chronic hemodialysis patient and he was also seen by infectious diseases and pulmonary medicine. Patient was only briefly on nasal cannula oxygen during his hospital stay. He was given dexamethasone during his hospitalization. Patient was not a candidate for remdesivir due to end-stage renal disease. Patient was seen by PT and OT, patient had episodes of confusion during his hospitalization, the etiology of these episodes were unknown. It was felt that the patient would benefit from short-term inpatient rehab services at a [facility] and the patient agreed to the discharge plan. On 04/02/2020, patient was seen and examined:General: Alert, Cooperative, No apparent distress, Well developed, - - Patient is oriented as to self and place and month HEENT: Atraumatic, PERRLA, EOMI, Normocephalic Oral: Moist Mucosa Neck: Supple, No JVD, Trachea Midline, Thyroid Normal Size and Texture Lungs: Clear to auscultation, Normal air movement, No rhonchi, No wheeze, No rales Cardiovascular: Regular rate, Regular Rhythm, Normal S1, Normal S2, No murmurs, PMI Normal, No rub noted Abdomen: Bowel Sounds Present, Soft, Non Tender, Non-Distended Extremities: No clubbing, No cyanosis, No edema, Capillary Refill Less than 3 Seconds Skin: No rashes, No breakdown Musculoskeletal: No Tenderness to Palpation of Joints or Extremities Neurological: Cranial nerves II-XII grossly intact, Neuro grossly intact, Sensory exam intact to light touch and pain Psych/Mental Status: Flat Affect, - - Patient is able to answer some simple questions appropriately On 04/02/2020, patient was discharged to a [facility] facility in stable condition Patient Problems: Active and Suspected Problems (Last Reviewed 03/25/20 @ 02:[address] Priyank Tate MD) Pneumonia (Acute) Debility (Acute) COVID-19 (Acute) SARS (severe acute respiratory syndrome) (Acute) - Physical Exam Vitals/I&O's: Vital Signs Temp Pulse Resp BP Pulse Ox 97.6 F L 60 16 116/59 L 96 04/02/20 07:43 04/02/20 12:09 04/02/20 07:43 04/02/20 07:43 04/02/20 08:00 Oxygen Flow Rate (L/min) 3 Oxygen Delivery Method Room Air Weight: 107.2 kg Body Mass Index (BMI) 37.4 Finger Stick Blood Glucose 124 Intake and Output for Last 24 Hours 04/01/20 04/02/20 04/03/20 23:59 23:59 23:59 Intake Total 240 / 240 450 / 450 Output Total 1400 / 1400 Balance -1160 / -1160 450 / 450 Home Medications: Medications to take at Discharge Pravastatin [Pravachol] 80 mg PO DAILY 07/23/15 Tamsulosin HCl [Flomax] 0.4 mg PO QHS 07/23/15 Aspirin E.C. [Ecotrin] 81 mg PO DAILY@0800 09/25/16 insulin detemir U-100 100 unit/mL (3 mL) subcutaneous pen 14 unit SC QHS ml 06/16/18 vitamin B complex and vitamin C no.20-folic acid 1 mg capsule 1 cap PO DAILY 06/16/18 clopidogrel 75 mg tablet 75 mg PO DAILY 09/29/18 Calcium Acetate 1,334 mg PO BREAKFAST 02/18/20 Latanoprost/Pf [Latanoprost 0.005% Eye Drop] 1 drp EACH EYE QHS 02/18/20 Levothyroxine Sodium [Synthroid] 175 mcg PO DAILY 02/18/20 metoprolol tartrate 25 mg tablet 12.5 mg PO BID tab 03/10/20 midodrine 5 mg tablet 5 mg PO TID 03/10/20 Acetaminophen [Tylenol Tablet] 650 mg PO Q6H PRN PRN tab 04/01/20 Polyethylene Glycol 3350 [Miralax] 17 gm PO DAILY packet 04/01/20 Primary Care Physician: Teodoro Mckinley MD [Primary Care Provider] - [facility] Minutes spent on discharge:: 33 Patient Condition:: Stable Medical Necessity - Tobacco Use Smoking Status: Never smoker Tobacco Use: Non-smoker Meaningful Use Info Meaningful Use Diagnoses (Choose all that apply): None applicable Inpatient E&M: 97101 Disch Hosp
--- NOTE | 2020-04-04 16:47 | NURSING ---
female phoned in, states she is pt spouse Radha- Radha states she is concerned because the ECF ([facility] [place]) states they do not have SSI for him nor do they have diabetic diet order for him either. Radha phone number taken and said nurse will call back with update, as per the transfer order, both a diet and SSI coverage are listed on the top of the instructions. Said nurse phoned to [facility] in [place] ([phone]) and spoke with pt nurse Shana- Shana states she will look into it, she did not admit the patient. Phone number to [facility] given to Shana incase she cannot find the information she needs. Phoned pt spouse Radha back and updated said nurse spoke with Shana and she is looking into it. Pt states she appreciates everything everyone has done.
== END 2020-04-02 13:58 | disposition skilled nursing facility (03) | DRG 177 ==
LOC: ED 23:14 → MS2 03-25 01:27
PROVIDERS: Family Medicine; Admitting Provider Hospitalist; Emergency Provider Emergency Medicine; PCP Internal Medicine; Referring Provider Hospitalist; Visit Provider Internal Medicine
DX: U07.1 COVID-19 (principal); J12.89 Other viral pneumonia; N18.6 End stage renal disease; I12.0 Hypertensive chronic kidney disease with stage 5 chronic kidney disease or end stage renal disease; N25.81 Secondary hyperparathyroidism of renal origin; R09.02 Hypoxemia; E11.22 Type 2 diabetes mellitus with diabetic chronic kidney disease; D63.1 Anemia in chronic kidney disease; Z99.2 Dependence on renal dialysis; R41.89 Other symptoms and signs involving cognitive functions and awareness; K59.00 Constipation, unspecified; E11.65 Type 2 diabetes mellitus with hyperglycemia; I25.10 Atherosclerotic heart disease of native coronary artery without angina pectoris; E78.5 Hyperlipidemia, unspecified; E03.9 Hypothyroidism, unspecified; R00.1 Bradycardia, unspecified; G47.33 Obstructive sleep apnea (adult) (pediatric); N40.0 Benign prostatic hyperplasia without lower urinary tract symptoms; E66.9 Obesity, unspecified; Z68.37 Body mass index [BMI] 37.0-37.9, adult; Z79.82 Long term (current) use of aspirin; Z79.4 Long term (current) use of insulin; Z79.02 Long term (current) use of antithrombotics/antiplatelets; Z79.890 Hormone replacement therapy; Z79.899 Other long term (current) drug therapy; Z86.73 Personal history of transient ischemic attack (TIA), and cerebral infarction without residual deficits; Z95.0 Presence of cardiac pacemaker; Z95.5 Presence of coronary angioplasty implant and graft
CPT/HCPCS: 36415; 70450; 71045; 71275; 80048; 80053; 81001; 82550; 82962; 83605; 83735; 83880; 84145; 84484; 85025; 85379; 85384; 85610; 85730; 86140; 86704; 86705; 86706; 86708; 86709; 86803; 86900; 86901; 87040; 87340; 87635; 90937; 93005; 97110; 97116; 97162; 97166; 97530; 97535; 97802; 99285; J7030; J7050; Q9967; A4216; G0257; Q5106; U0002